=== PATIENT | male | born 1955 | race Caucasian/White ===

== ENCOUNTER 2019-10-09 08:09 | Outpatient (CLI) | payer OTHER, SELFPAY ==
--- NOTE | ~2019-10-09 | US_ITS ---
EXAMINATION: US art doppler w press LE DATE: 10/09/2019 08:54 INDICATION: Bilateral lower limb claudication. TECHNIQUE: Segmental pressures and plethysmographic and Doppler waveforms of the brachial and lower e xtremity arteries were obtained. COMPARISON: None. FINDINGS: Right and left brachial artery pressures of 152 mm Hg and 144 mm Hg, respectively, are concordant (no rmal difference <= 30 mmHg). The right low-thigh pressure index is 1.13. The right ankle-brachial index (RON) is 1.13 (normal >= 0 .9-1.0). The right great toe-brachial index (TBI) is 0.97 (normal >= 0.65). Arterial Doppler waveform s are biphasic from the common femoral artery to dorsalis pedis and are at least triphasic in posteri or tibial artery. The left low-thigh pressure index is 1.24. The left RON is 1.09. The left TBI is 0.69. Arterial Doppl er waveforms are triphasic in common femoral artery and biphasic from superficial femoral artery to t he ankle. IMPRESSION: 1. No significant arterial occlusive disease. Reviewed, dictated and finalized at location A.
== END 2019-10-09 08:10 | disposition home or self-care (01) ==
PROVIDERS: PCP Family Medicine; Visit Provider Internal Medicine Cardiovascular Disease
DX: I73.9 Peripheral vascular disease, unspecified (principal)
CPT/HCPCS: 93923

== ENCOUNTER 2020-01-30 10:35 | Emergency (ER) | payer OTHER, SELFPAY ==
[2020-01-30] VITALS (16 sets, daily range): BP systolic 126–179; BP diastolic 72–93; PULSE 63–78; RESP 11–24; TEMP 36.5; O2SAT 95–99
--- NOTE | ~2020-01-30 | CT_ITS ---
EXAMINATION: CT brain wo con EXAM DATE: 01/30/2020 11:12 INDICATION: Dizziness, nausea for 2 weeks. TECHNIQUE: Spiral CT of the head was performed without contrast. Axial, coronal and sagittal images were reviewed. The dose-length product (DLP) for this examination was 605.33 mGy-cm. The exposure w as tailored according to patient size, and iterative reconstruction (ASIR) was used as additional dos e reduction technique. Comparison is made to prior examination from 06/13/2014. FINDINGS: There is no acute intraparenchymal hemorrhage. No evidence of intraparenchymal brain mass lesion. No evidence of acute infarction. Please note that initial head CT has limited sensitivity f or small or acute infarctions. There is mild to moderate periventricular and subcortical hypodensity, nonspecific but probably related to small vessel ischemic disease. There is ventricular prominence out of proportion to sulci which is suspected most likely central atrophy rather than hydrocephalus. Normal pressure hydrocephalus cannot be excluded (clinical triad ataxia/gait disturbance, dementia, urinary incontinence). There is intracranial carotid arteriosclerosis. There are no extra-axial c ollections. There is no mass effect or midline shift. The orbits are unremarkable. Soft tissue is unremarkable. The visualized sinuses and mastoid air cells are well aerated. Mild progression in t he age-related findings compared to 2015. IMPRESSION: 1. No acute intracranial findings. 2. Chronic age related findings. Reviewed, dictated and finalized at location B.
--- NOTE | 2020-01-30 10:38 | ECG_ITS ---
Measurements Intervals [place] Rate: 71 P: -18 LA: 130 QRS: -31 QRSD: 105 T: 63 QT: 386 QTc: 420 Interpretive Statements SINUS RHYTHM LEFT AXIS DEVIATION DELAYED PRECORDIAL R/S TRANSITION BORDERLINE ECG Electronically Signed On 01-30-2020 13:01:15 CDT by Flo Maldonado D.O.
[2020-01-30 10:52] LABS: Basophils Absolute Auto 0.1 K/mm3 (0.0-0.1); Basophils Percent Auto 0.8 % (0.2-1.2); Eosinophils Absolute Auto 0.3 K/mm3 (0-0.3); Eosinophils Percent Auto 4.4 % (0-4.4); Hemoglobin 15.2 g/dL (14.0-18.0); Immature Granulocyte Absolute 0.01 K/mm3 (0.00-0.031); Immature Granulocyte Percent A 0.2 % (0-0.5); Lymphocytes Absolute Auto 1.75 K/mm3 (0.9-3.2); Lymphocytes Percent Auto 27.2 % (18.3-44.2); Mean Corpuscular HGB Conc 34.5 g/dl (32-36); Mean Corpuscular Hemoglobin 31.2 pg (26-34); Mean Corpuscular Volume 90.3 fl (80-100); Mean Platelet Volume 11.3 fl (7.4-10.4); Monocytes Absolute Auto 0.7 K/mm3 (0.1-0.6); Monocytes Percent Auto 11.2 % (2.6-8.5); Neutrophils Absolute Auto 3.6 K/mm3 (1.3-6.7); Neutrophils Percent Auto 56.2 % (45.5-73.1); Platelet Count Result 204 k/mm3 (150-375); Red Blood Count 4.87 M/mm3 (4.6-6.20); Red Cell Distribution Width 12.6 % (11.5-14.5); White Blood Count 6.4 K/mm3 (4.5-10.0)
--- NOTE | 2020-01-30 11:05 | PC.NURSE ---
pt to radiology at this time.
[2020-01-30 11:38] LABS: Anion Gap 14 mmol/L (8-16); Blood Urea Nitrogen 19 mg/dL (9-20); Calcium 10.1 mg/dL (8.4-10.2); Carbon Dioxide 25 mmol/L (22-30); Chloride 101 mmol/L (98-107); Estimated CRCL calculation 105 ml/min; Estimated Glomerular Filt Rate > 60; Glucose 242 mg/dL (75-110); Sodium 140 mmol/L (137-145)
--- NOTE | 2020-01-30 11:46 | PC.NURSE ---
VIJAY FORDE INFORMED OF PT REFUSAL.
--- NOTE | 2020-01-30 12:09 | ED.DIZZY ---
HPI - Dizziness General Chief Complaint: Dizziness <Ana Marie PA-C - Last Filed: 01/30/20 16:20> Stated Complaint: dizzy x 2 weeks <Ana Marie PA-C - Last Filed: 01/30/20 16:20> Time Seen by Provider: 01/30/20 10:38 <Ana Marie PA-C - Last Filed: 01/30/20 16:20> Source: patient and family () <MARITA Tijerina Last Filed: 01/30/20 16:20> Mode of arrival: ambulatory <MARITA Tijerina Last Filed: 01/30/20 16:20> Limitations: no limitations <MARITA Tijerina Last Filed: 01/30/20 16:20> History of Present Illness HPI Narrative: Patient presents with chief complaint of dizziness sensation when he goes from lying or sitting to standing. Patient states he does not feel any dizziness when he goes from a lying to sitting or sitting to laying only with standing. Patient denies headache, changes in vision or hearing, nausea or vomiting. He denies any recent head injuries or falls. Patient states that he has been able to eat and drink normally. He denies any fever, chills, recent illnesses, shortness of breath, chest pain, rectal bleeding or bloody vomit. Patient states that he just wanted to come in for evaluation to make sure that there was not anything emergent occurring. Patient denies starting any new medications or discontinuing any medications recently. 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 <Ana Marie PA-C - Last Filed: 01/30/20 16:20> Related Data Home Medications: Home Medications Medication Instructions Recorded Confirmed aspirin 81 mg tablet,delayed 81 mg PO DAILY 06/12/19 release lisinopril 40 mg tablet 40 mg PO DAILY 06/12/19 mecobalamin (vitamin B12) 1,000 mcg PO 06/12/19 mcg chewable tablet <Ana Marie PA-C - Last Filed: 01/30/20 16:20> Allergies/Adverse Reactions: Allergies Allergy/AdvReac Type Severity Reaction Status Date / Time nut - unspecified Allergy Unknown Scratchy Verified 11/26/19 15:03 throat <Ana Marie PA-C - Last Filed: 01/30/20 16:20> Review of Systems Review of Systems: Narrative: CONSTITUTIONAL: Denies fever, chills, or sweats. EYES: Denies visual changes, redness, or discharge. ENT: Denies rhinorrhea, congestion, sore throat, or otalgia. CARDIOVASCULAR: Denies chest pain, palpitations, or edema. RESPIRATORY: Denies cough or dyspnea. GASTROINTESTINAL: Denies abdominal pain, nausea, vomiting, or diarrhea. GENITOURINARY: Denies dysuria or hematuria. SKIN: Denies rash or itching. MUSCULOSKELETAL: Denies back pain, myalgia, or joint pain NEUROLOGIC: Reports dizziness with position changes denies headache, numbness,or weakness. PSYCHIATRIC: Denies anxiety or depression. <Ana Marie PA-C - Last Filed: 01/30/20 16:20> PMFSH Family History Family History: Family History Father Patient's father is , Onset Age: 34 Grandparent Carcinoma of colon Sibling Family history of type 1 diabetes mellitus Other Diabetes mellitus <Ana Marie PA-C - Last Filed: 01/30/20 16:20> Social History Social History: Social History Smoking status: Never smoker Alcohol intake: never Gender identity (if verbalized by the patient): Male <Ana Marie PA-C - Last Filed: 01/30/20 16:20> Exam Narrative: Exam Narrative: GENERAL: Well-appearing, well-nourished. Smiling and talking appropriately. HEAD: Normocephalic, atraumatic. EYES: PERRLA and EOMI. ENT: Nares clear, no rhinorrhea or epistaxis. Mucous membranes moist. Oropharynx without tonsillar hypertrophy exudate or other lesions. Bilateral TMs pearly landaverde nonbulging. No hemotympanum. NECK: Supple. No adenopathy or masses. No vertebral tenderness or loss of ROM. CHEST: Clear to auscultation. No respiratory
== END 2020-01-30 12:40 | disposition home or self-care (01) ==
PROVIDERS: Emergency Provider General Practice; PCP Family Medicine
DX: R42 Dizziness and giddiness (principal); I25.2 Old myocardial infarction; R94.31 Abnormal electrocardiogram [ECG] [EKG]
CPT/HCPCS: 36415; 70450; 80048; 85025; 93005; 99284

== ENCOUNTER 2020-02-12 11:24 | Emergency (ER) | payer OTHER, SELFPAY ==
[2020-02-12 11:31] VITALS: BP 134/80; PULSE 81; RESP 20; TEMP 37.1; O2SAT 100
--- NOTE | 2020-02-12 11:41 | ECG_ITS ---
Measurements Intervals [place] Rate: 65 P: 50 NV: 159 QRS: -24 QRSD: 100 T: 45 QT: 390 QTc: 407 Interpretive Statements SINUS RHYTHM DELAYED PRECORDIAL R/S TRANSITION BASELINE WANDER- V4, V6 BORDERLINE ECG Electronically Signed On 02-12-2020 12:04:10 CDT by Flo Maldonado D.O.
[2020-02-12 12:01] LABS: Basophils Absolute Auto 0.1 K/mm3 (0.0-0.1); Basophils Percent Auto 0.7 % (0.2-1.2); Eosinophils Absolute Auto 0.2 K/mm3 (0-0.3); Eosinophils Percent Auto 2.3 % (0-4.4); Hematocrit 44.8 % (42.0-52.0); Hemoglobin 15.5 g/dL (14.0-18.0); Immature Granulocyte Absolute 0.03 K/mm3 (0.00-0.031); Immature Granulocyte Percent A 0.4 % (0-0.5); Lymphocytes Absolute Auto 1.54 K/mm3 (0.9-3.2); Lymphocytes Percent Auto 18.5 % (18.3-44.2); Mean Corpuscular HGB Conc 34.6 g/dl (32-36); Mean Corpuscular Hemoglobin 31.4 pg (26-34); Mean Corpuscular Volume 90.7 fl (80-100); Mean Platelet Volume 10.8 fl (7.4-10.4); Monocytes Absolute Auto 0.9 K/mm3 (0.1-0.6); Monocytes Percent Auto 10.4 % (2.6-8.5); Neutrophils Absolute Auto 5.6 K/mm3 (1.3-6.7); Neutrophils Percent Auto 67.7 % (45.5-73.1); Platelet Count Result 240 k/mm3 (150-375); Red Blood Count 4.94 M/mm3 (4.6-6.20); Red Cell Distribution Width 12.7 % (11.5-14.5); White Blood Count 8.3 K/mm3 (4.5-10.0)
[2020-02-12 12:42] LABS: Alanine Aminotransferase 38 U/L (4-50); Albumin Level 4.3 g/dL (3.5-5.1); Alkaline Phosphatase 73 U/L (38-126); Anion Gap 10 mmol/L (8-16); Aspartate Amino Transferase 30 U/L (17-59); Bilirubin,Total 0.6 mg/dL (0.2-1.3); Blood Urea Nitrogen 16 mg/dL (9-20); Calcium 9.6 mg/dL (8.4-10.2); Carbon Dioxide 27 mmol/L (22-30); Chloride 101 mmol/L (98-107); Estimated CRCL calculation 105 ml/min; Estimated Glomerular Filt Rate > 60; Glucose 185 mg/dL (75-110); Potassium 4.7 mmol/L (3.4-5.0); Sodium 138 mmol/L (137-145)
[2020-02-12 12:53] LABS: Troponin I < 0.012 ng/mL (0.000-0.034)
[2020-02-12 13:15] VITALS: BP 126/75; PULSE 65
[2020-02-12 13:16] VITALS: BP 100/65; PULSE 68
--- NOTE | 2020-02-12 13:20 | ED.DIZZY ---
HPI - Dizziness General Chief Complaint: Dizziness Stated Complaint: DIZZY Time Seen by Provider: 02/12/20 11:40 Source: patient and family Mode of arrival: ambulatory Limitations: no limitations History of Present Illness HPI Narrative: Patient presents with chief complaint of dizziness with changes in position the has been occurring for multiple months. Patient was seen here 01/29 as well as in his primary care office 02/02 and diagnosed with vestibular symptoms. Patient states he was then started on Jardiance which made his dizziness worse. Patient states that he thinks it may be due to blood pressure decreases. Patient denies any blood loss, vomiting, or diarrhea or bleeding in stool. Patient states he has still declined to take meclizine. He does not have headache, change sin vision or hearing, chest pain, or SOB. Related Data Home Medications Medication Instructions Recorded Confirmed aspirin 81 mg tablet,delayed 81 mg PO DAILY 06/12/19 02/03/20 release lisinopril 40 mg tablet 40 mg PO DAILY 06/12/19 02/03/20 mecobalamin (vitamin B12) 1,000 mcg PO 06/12/19 02/03/20 mcg chewable tablet Allergies Allergy/AdvReac Type Severity Reaction Status Date / Time nut - unspecified Allergy Unknown Scratchy Verified 02/12/20 12:03 throat Review of Systems Review of Systems: Narrative: CONSTITUTIONAL: Denies fever, chills, or sweats. EYES: Denies visual changes, redness, or discharge. ENT: Denies rhinorrhea, congestion, sore throat, or otalgia. CARDIOVASCULAR: Denies chest pain, palpitations, or edema. RESPIRATORY: Denies cough or dyspnea. GASTROINTESTINAL: Denies abdominal pain, nausea, vomiting, or diarrhea. GENITOURINARY: Denies dysuria or hematuria. SKIN: Denies rash or itching. MUSCULOSKELETAL: Denies back pain, joint pain, or myalgia. NEUROLOGIC: Reports dizziness with change in the position denies headache, numbness, or weakness. PSYCHIATRIC: Denies anxiety or depression. [facility] Family History Family History Father Patient's father is , Onset Age: 34 Grandparent Carcinoma of colon Sibling Family history of type 1 diabetes mellitus Other Diabetes mellitus Social History Social History Smoking status: Never smoker Alcohol intake: never Gender identity (if verbalized by the patient): Male Exam Narrative: Exam Narrative: GENERAL: Well-appearing, well-nourished, and in no acute distress. HEAD: Normocephalic, atraumatic. EYES: PERRLA and EOMI. ENT: Nares clear, no rhinorrhea or epistaxis. Mucous membranes moist. Oropharynx without tonsillar hypertrophy exudate or other lesions. Bilateral TMs pearly landaverde nonbulging NECK: Supple. No adenopathy or masses. No carotid bruits or JVD CHEST: Clear to auscultation. No respiratory distress. No wheezes rales or rhonchi HEART: Regular rate and rhythm. No murmur heard. Normal peripheral pulses. ABDOMEN: Soft, nontender, nondistended, normal active bowel sounds. EXTREMITIES: Normal range of motion. No edema. SKIN: Warm, dry, no rash. NEURO: No focal deficits. Alert and oriented x3. PSYCH: Normal mood and affect. Course Vital Signs Vital signs: Vital Signs Temperature 98.8 F 02/12/20 11:31 Pulse Rate 81 02/12/20 11:31 Respiratory Rate 20 02/12/20 11:31 Blood Pressure 134/80 02/12/20 11:31 Pulse Oximetry 100 02/12/20 11:31 Temperature 98.8 F 02/12/20 11:31 Pulse Rate 68 02/12/20 13:16 Respiratory Rate 20 02/12/20 11:31 Blood Pressure 100/65 02/12/20 13:16 Pulse Oximetry 100 02/12/20 11:31 MDM - Dizziness MDM Narrative Medical decision making narrative: Patient is neurologically intact. Patient vital signs are stable. Patient does not have any blood loss or loss of fluids with vomiting or diarrhea. Patient feels that his blood pressure medications may need to be changed and h
[2020-02-12 14:20] VITALS: BP 130/81; PULSE 63; RESP 20; O2SAT 100
== END 2020-02-12 14:32 | disposition home or self-care (01) ==
PROVIDERS: Physician Assistant; Emergency Provider Emergency Medicine; PCP Family Medicine
DX: H81.90 Unspecified disorder of vestibular function, unspecified ear (principal)
CPT/HCPCS: 36415; 80053; 84484; 85025; 93005; 99284

== ENCOUNTER 2020-04-21 13:51 | Outpatient (CLI) | payer OTHER, SELFPAY ==
--- NOTE | ~2020-04-21 | US_ITS ---
EXAMINATION: US arterial duplex [facility] DATE: 04/21/2020 14:57 INDICATION: Other specified symptoms and signs involving the circulatory and respiratory systems, art erial disease. Lower limb claudication. TECHNIQUE: Multiple grayscale and Doppler ultrasound images of the arteries of the bilateral lower li mbs were obtained. COMPARISON: None FINDINGS: Triphasic waveform at the right popliteal artery and biphasic waveforms in the remaining arteries of the right lower limb with brisk systolic upstrokes throughout. There are biphasic waveforms with bris k systolic upstrokes throughout the arteries of the left lower limb. Scattered atherosclerotic plaque with visually <50% stenosis is seen throughout multiple arteries in the bilateral lower limbs, more extensive on the left. No focal elevation of peak systolic velocities to suggest a hemodynamically si gnificant stenosis. IMPRESSION: 1. Scattered atherosclerotic plaque throughout multiple arteries in both lower limbs with brisk systo lic upstrokes throughout and no findings grayscale imaging or color Doppler to suggest a hemodynamica lly significant stenosis. Reviewed, dictated and finalized at location A. GER TAX IMPRESSION: 1. Scattered atherosclerotic plaque throughout multiple arteries in both lower limbs with brisk systolic upstrokes throughout and no findings grayscale imagin g or color Doppler to suggest a hemodynamically significant stenosis.
== END 2020-04-21 13:52 | disposition home or self-care (01) ==
LOC: ANHIMG 14:01
PROVIDERS: PCP Family Medicine; Visit Provider Family Medicine
DX: R09.89 Other specified symptoms and signs involving the circulatory and respiratory systems (principal)
CPT/HCPCS: 93925

== ENCOUNTER 2020-04-22 09:58 | Emergency (ER) | payer OTHER, SELFPAY ==
[2020-04-22] VITALS (25 sets, daily range): BP systolic 147–160; BP diastolic 84–101; PULSE 72–83; RESP 14–26; TEMP 36; O2SAT 97–100
--- NOTE | ~2020-04-22 | CT_ITS ---
EXAMINATION: CT abdomen pelvis w con DATE: 04/22/2020 11:36 INDICATION: Nausea, vomiting, abdominal pain, weight loss, loss of appetite TECHNIQUE: Computed tomography (CT) of the abdomen and pelvis was performed with 100 cc Omnipaque 350 intravenous contrast. Automated exposure control and iterative reconstruction technique were employe d. Exam dose: 1086.34 mGy-cm total exam DLP. COMPARISON: 10/11/2013 CT abdomen pelvis FINDINGS: The lung bases are clear of consolidation. Heart size is within normal limits. Trace pericardial effusion. Coronary artery calcification. Very small sliding hiatal hernia. There is dependent sludge and/or stones of the gallbladder. No gallbladder wall thickening or pericho lecystic fluid or stranding. Consider gallbladder ultrasound correlation. No hepatic, splenic, pancreatic, and adrenal or renal space-occupying mass lesion is evident, other t rob a couple of very small left renal cyst and at least one very small right renal cortical cyst. There is a pinpoint nonobstructing anterior mid left renal calculus. No ureteral calculus or hydroureteronephrosis. There is atherosclerotic calcification of the abdominal aorta, superior mesenteric artery, prominent calcification at the origins of the renal arteries and separately originating right hepatic artery fr om the aorta, an anatomic variant. No abdominal aortic aneurysm or dissection is evident. Is calcific ation of the iliac and femoral arteries. No intraperitoneal or retroperitoneal or pelvic mass lesion or adenopathy or ascites. The urinary bladder is unremarkable. Minimal prostate calcification. Normal appendix. No bowel obstruction, bowel wall thickening, pneumatosis or intraperitoneal free air . No suspicious osteolytic or osteoblastic lesions are noted.. IMPRESSION: The dependent gallbladder sludge and/or gallstones; consider gallbladder ultrasound exam ination Very small sliding hiatal hernia Very small bilateral renal cysts Pinpoint nonobstructing anterior mid left renal calculus Reviewed, dictated and finalized at Location A. Reviewed, dictated and finalized at location A. AULIC BARKER OPERATOR IMPRESSION: The dependent gallbladder sludge and/or gallstones; consider gallb ladder ultrasound examination Very small sliding hiatal hernia Very small bilateral renal cysts Pinpoint nonobstructing anterior mid left renal calculus
--- NOTE | ~2020-04-22 | US_ITS ---
EXAMINATION: US abdomen limited EXAM DATE: 04/22/2020 13:10 INDICATION: Gallbladder sludge or gallstones on CT. Nausea and vomiting. TECHNIQUE: Multiple grayscale and Doppler images of the abdomen right upper quadrant were obtained (b y a technologist who performed the scan) and subsequently reviewed. Correlation is made to CT earlier same date. FINDINGS: The pancreatic head and body are normal in appearance. The pancreatic tail is not visualized. The l iver has normal echogenicity and contour. There are no focal liver lesions identified. There is no evidence of intrahepatic biliary duct dilation. Portal venous flow was seen in the hepatopedal, nor mal direction and has normal Doppler waveform. No right-sided hydronephrosis. Common bile duct measures 3 mm, which is normal. The gallbladder wall is normal in thickness, with ex pected amount of distention. No sonographic evidence of pericholecystic fluid. There are small laye ring gallstones Technologist performing exam reports patient did not demonstrate sonographic Butts' s sign. Please note that this sign is less reliable in patients who have received pain medication. IMPRESSION: 1. Cholelithiasis. Reviewed, dictated and finalized at location B. CAL CLAIMS MANAGER IMPRESSION: 1. Cholelithiasis.
--- NOTE | 2020-04-22 10:10 | ECG_ITS ---
Measurements Intervals [place] Rate: 79 P: 186 SD: 136 QRS: 215 QRSD: 102 T: 126 QT: 410 QTc: 470 Interpretive Statements SINUS OR ECTOPIC ATRIAL RHYTHM LIMB LEAD REVERSAL POOR R WAVE PROGRESSION, ANTERIOR LEADS BASELINE ARTIFACT- I, II, AVR, V2-V3, V6 BORDERLINE ECG Electronically Signed On 04-22-2020 14:24:42 HRIS COORDINATOR by Flo Maldonado D.O.
[2020-04-22 10:18] LABS: Basophils Absolute Auto 0.1 K/mm3 (0.0-0.1); Basophils Percent Auto 0.8 % (0.2-1.2); Eosinophils Absolute Auto 0.2 K/mm3 (0-0.3); Eosinophils Percent Auto 2.7 % (0-4.4); Hematocrit 51.6 % (42.0-52.0); Hemoglobin 17.5 g/dL (14.0-18.0); Immature Granulocyte Absolute 0.03 K/mm3 (0.00-0.031); Immature Granulocyte Percent A 0.3 % (0-0.5); Lymphocytes Absolute Auto 1.74 K/mm3 (0.9-3.2); Lymphocytes Percent Auto 19.8 % (18.3-44.2); Mean Corpuscular HGB Conc 33.9 g/dl (32-36); Mean Corpuscular Hemoglobin 30.8 pg (26-34); Mean Corpuscular Volume 90.8 fl (80-100); Mean Platelet Volume 10.8 fl (7.4-10.4); Monocytes Percent Auto 10.9 % (2.6-8.5); Neutrophils Absolute Auto 5.7 K/mm3 (1.3-6.7); Neutrophils Percent Auto 65.5 % (45.5-73.1); Platelet Count Result 269 k/mm3 (150-375); Red Blood Count 5.68 M/mm3 (4.6-6.20); Red Cell Distribution Width 12.5 % (11.5-14.5); White Blood Count 8.8 K/mm3 (4.5-10.0)
--- NOTE | 2020-04-22 10:45 | ED.ABDPAIN ---
HPI - Abdominal Pain General Chief Complaint: Abdominal Pain Stated Complaint: Dizzy, N/V Time Seen by Provider: 04/22/20 10:10 Source: patient Mode of arrival: ambulatory Limitations: no limitations History of Present Illness HPI narrative: Patient with history of vertigo, DM, and HTN presents with chief complaint of vomiting over the past week as well as decreased appetite and weight loss over the past 2 months. Patient states he has decreased his eating to once a day due to vomiting with changes in position. He denies abdominal pain, changes in his stool or blood or mucus in his vomitus or stool. Patient states that he is working with his primary care Dr. Black to treat his vertigo however he has declined medication such as meclizine or Valium for his condition. He states that he was taking [id number] medication for vertigo however it was making him sleepy so he discontinued it. Patient states that he felt that his loss of appetite increased after he was started on Jardiance in January. Patient denies fever, chills, cough, shortness of breath, chest pain. Patient states that he went to the landscape and yardwork laborer today for evaluation of foot ulcer and he was instructed to come to the emergency department for work-up of his nausea and vomiting and weight loss. Patient reports his father had a history of colon cancer. Patient has not recently had a colonoscopy. Related Data Home Medications Medication Instructions Recorded Confirmed aspirin 81 mg tablet,delayed 81 mg PO DAILY 06/12/19 04/07/20 release mecobalamin (vitamin B12) 1,000 mcg PO 06/12/19 04/07/20 mcg chewable tablet lisinopril 04/22/20 Allergies Allergy/AdvReac Type Severity Reaction Status Date / Time nut - unspecified Allergy Unknown Scratchy Verified 04/22/20 10:09 throat Review of Systems Review of Systems: Narrative: CONSTITUTIONAL: Denies fever, chills, or sweats. EYES: Denies visual changes, redness, or discharge. ENT: Denies rhinorrhea, congestion, sore throat, or otalgia. CARDIOVASCULAR: Denies chest pain, palpitations, or edema. RESPIRATORY: Denies cough or dyspnea. GASTROINTESTINAL: Reports nausea, vomiting Denies abdominal pain, or diarrhea. GENITOURINARY: Denies dysuria or hematuria. SKIN: Denies rash or itching. MUSCULOSKELETAL: Denies back pain, myalgia, or joint pain NEUROLOGIC: Reports dizziness Denies headache, numbness, or weakness. PSYCHIATRIC: Denies anxiety or depression. PMFSH Family History Family History Father Patient's father is , Onset Age: 34 Grandparent Carcinoma of colon Sibling Family history of type 1 diabetes mellitus Other Diabetes mellitus Social History Social History Alcohol intake: never Gender identity (if verbalized by the patient): Male Exam Narrative: Exam Narrative: GENERAL: Well-appearing, well-nourished, and in no acute distress. HEAD: Normocephalic, atraumatic. EYES: PERRLA and EOMI. ENT: Nares clear, no rhinorrhea or epistaxis. Mucous membranes moist. Oropharynx without tonsillar hypertrophy exudate or other lesions. Bilateral TMs pearly landaverde nonbulging CHEST: Clear to auscultation. No respiratory distress. No wheezes rales or rhonchi HEART: Regular rate and rhythm. ABDOMEN: Soft, nontender, nondistended, normal active bowel sounds. EXTREMITIES: Normal range of motion. No edema. SKIN: Warm, dry, no rash. NEURO: No focal deficits. Alert and oriented x3. PSYCH: Normal mood and affect. Course Vital Signs Vital signs: Vital Signs Temperature 96.8 F L 04/22/20 10:05 Pulse Rate 82 04/22/20 10:05 Respiratory Rate 20 04/22/20 10:05 Blood Pressure 158/101 H 04/22/20 10:05 Pulse Oximetry 100 04/22/20 10:05 Temperature 96.8 F L 04/22/20 10:05 Pulse Rate 74 04/22/20 11:03 Respiratory Rate 23 H 04/22/20 11:03 Blood Pressure 160/
[2020-04-22 11:12] LABS: Alanine Aminotransferase 48 U/L (4-50); Albumin Level 4.4 g/dL (3.5-5.1); Alkaline Phosphatase 109 U/L (38-126); Anion Gap 9 mmol/L (8-16); Aspartate Amino Transferase 36 U/L (17-59); Bilirubin,Total 0.6 mg/dL (0.2-1.3); Blood Urea Nitrogen 22 mg/dL (9-20); Calcium 10.2 mg/dL (8.4-10.2); Carbon Dioxide 28 mmol/L (22-30); Chloride 101 mmol/L (98-107); Estimated CRCL calculation 80 ml/min; Estimated Glomerular Filt Rate > 60; Glucose 213 mg/dL (75-110); Lipase 45 U/L (23-300); Potassium 4.5 mmol/L (3.4-5.0); Sodium 138 mmol/L (137-145)
[2020-04-22 11:23] LABS: Add Urine Microscopic? YES; Appearance Urine Clear (Clear); Bilirubin Urine Negative (Negative); Blood Urine Negative (Negative); Color Urine Yellow (Yellow); Glucose Urine UA 3+ mg/dL (Negative); Ketones Urine Trace mg/dL (Negative); Leukocyte Esterase Ur Negative LEU/UL (Negative); Mucus Urine Rare /lpf; Nitrate Urine Negative (Negative); Protein Urine Negative (Negative); Urobilinogen Urine Negative mg/dL (<2.0); WBC Urine 0-3 /hpf
[2020-04-22 11:24] LABS: Specific Grav Ur 1.039 (1.001-1.035)
== END 2020-04-22 14:13 | disposition home or self-care (01) ==
PROVIDERS: Emergency Provider Emergency Medicine; PCP Family Medicine
DX: K80.20 Calculus of gallbladder without cholecystitis without obstruction (principal); R42 Dizziness and giddiness; R11.2 Nausea with vomiting, unspecified
CPT/HCPCS: 36415; 74177; 76705; 80053; 81001; 83690; 85025; 93005; 99284; Q9967

== ENCOUNTER 2020-05-04 11:59 | Emergency (ER) | payer OTHER, SELFPAY ==
--- NOTE | ~2020-05-04 | CT_ITS ---
EXAMINATION: CT abdomen pelvis w con INDICATION: Right upper quadrant pain TECHNIQUE: Computed tomographic images of the abdomen and pelvis were obtained after the administrati on of 100 cc of Omnipaque 350 intravenous contrast. The dose-length product (DLP) was 998.30 mGy-cm. Automated exposure control and iterative reconstruction technique were employed. COMPARISON: 04/22/2020 FINDINGS: Minimal dependent atelectasis is present in the lung bases. The heart size is normal. The l iver, spleen, pancreas, and adrenal glands are normal. Stones layer in the nondistended gallbladder. The kidneys are unremarkable. There is calcified atherosclerosis of the aorta and many of the other a rteries. No pathologically enlarged abdominal or pelvic lymph nodes are identified. The appendix is n ormal. A moderate volume of colonic stool is present. There is mild lumbar spondylosis. IMPRESSION: 1. Cholelithiasis without additional findings of cholecystitis. Reviewed, dictated and finalized at location A. RINARY LABORATORY TECHNICIAN
[2020-05-04 12:11] VITALS: BP 132/91; PULSE 80; RESP 14; TEMP 36.6; O2SAT 99
[2020-05-04 12:33] LABS: Basophils Absolute Auto 0.1 K/mm3 (0.0-0.1); Basophils Percent Auto 0.6 % (0.2-1.2); Eosinophils Absolute Auto 0.2 K/mm3 (0-0.3); Eosinophils Percent Auto 2.4 % (0-4.4); Hematocrit 51.3 % (42.0-52.0); Hemoglobin 17.1 g/dL (14.0-18.0); Immature Granulocyte Absolute 0.02 K/mm3 (0.00-0.031); Immature Granulocyte Percent A 0.3 % (0-0.5); Lymphocytes Absolute Auto 1.52 K/mm3 (0.9-3.2); Lymphocytes Percent Auto 19.2 % (18.3-44.2); Mean Corpuscular HGB Conc 33.3 g/dl (32-36); Mean Corpuscular Hemoglobin 30.7 pg (26-34); Mean Corpuscular Volume 92.1 fl (80-100); Mean Platelet Volume 11.3 fl (7.4-10.4); Monocytes Absolute Auto 0.8 K/mm3 (0.1-0.6); Neutrophils Absolute Auto 5.3 K/mm3 (1.3-6.7); Neutrophils Percent Auto 67.5 % (45.5-73.1); Platelet Count Result 226 k/mm3 (150-375); Red Blood Count 5.57 M/mm3 (4.6-6.20); Red Cell Distribution Width 12.5 % (11.5-14.5); White Blood Count 7.9 K/mm3 (4.5-10.0)
[2020-05-04 12:46] LABS: Alanine Aminotransferase 46 U/L (4-50); Albumin Level 4.3 g/dL (3.5-5.1); Alkaline Phosphatase 98 U/L (38-126); Anion Gap 9 mmol/L (8-16); Aspartate Amino Transferase 33 U/L (17-59); Bilirubin,Total 0.7 mg/dL (0.2-1.3); Blood Urea Nitrogen 15 mg/dL (9-20); Calcium 9.9 mg/dL (8.4-10.2); Carbon Dioxide 28 mmol/L (22-30); Chloride 99 mmol/L (98-107); Estimated CRCL calculation 80 ml/min; Estimated Glomerular Filt Rate > 60; Glucose 193 mg/dL (75-110); Lipase 37 U/L (23-300); Potassium 4.5 mmol/L (3.4-5.0); Sodium 136 mmol/L (137-145)
[2020-05-04 12:59] LABS: Add Urine Microscopic? YES; Appearance Urine Clear (Clear); Bacteria Urine Trace /hpf; Bilirubin Urine Negative (Negative); Blood Urine Negative (Negative); Color Urine Yellow (Yellow); Glucose Urine UA 3+ mg/dL (Negative); Ketones Urine 1+ mg/dL (Negative); Leukocyte Esterase Ur Negative LEU/UL (Negative); Mucus Urine Rare /lpf; Nitrate Urine Negative (Negative); Protein Urine Negative (Negative); RBC Urine 0-2 /hpf (0-2); Squamous Epithelial Cell Urine Rare /hpf (Few); Urobilinogen Urine Negative mg/dL (<2.0); WBC Urine 0-3 /hpf
[2020-05-04] MEDS: MORPHINE SULFATE (*CRX) 4 MG/ML INJ IV PUSH (14:27)
[2020-05-04] MEDS: ONDANSETRON INJ 4 MG/2 ML VIAL IV PUSH (14:27)
[2020-05-04] MEDS: FAMOTIDINE 20 MG/2 ML VIAL IV PUSH (14:27)
[2020-05-04] MEDS: SODIUM CHLORIDE 0.9% IV 1,000 ML 999 ML IV CONT (14:28)
[2020-05-04 15:03] VITALS: BP 157/78; PULSE 73; RESP 15; O2SAT 98
--- NOTE | 2020-05-04 16:13 | ED.ABDPAIN ---
HPI - Abdominal Pain General Chief Complaint: Abdominal Pain Stated Complaint: abd pain Time Seen by Provider: 05/04/20 13:45 Source: patient Mode of arrival: ambulatory Limitations: no limitations History of Present Illness HPI narrative: Patient 64-year-old male who presents with abdominal pain from primary care has been having these issues off and on coupled with dizziness for which she has been seen primary care and has been to the emergency department primary care discussed with general surgery patient was referred for rule out gallbladder disease had a CAT scan in the recent past showing cholelithiasis. Patient notes after eating spaghetti O's today he developed belly pain patient denies vomiting diarrhea rectal bleeding melena or URI symptoms patient notes mild aching pain that is poorly localized in the abdomen Related Data Home Medications Medication Instructions Recorded Confirmed aspirin 81 mg tablet,delayed 81 mg PO DAILY 06/12/19 04/07/20 release mecobalamin (vitamin B12) 1,000 mcg PO 06/12/19 04/07/20 mcg chewable tablet lisinopril 04/22/20 Allergies Allergy/AdvReac Type Severity Reaction Status Date / Time nut - unspecified Allergy Unknown Scratchy Verified 05/04/20 11:10 throat Review of Systems Review of Systems: All systems reviewed & are unremarkable except as noted in HPI and below PMFSH Past Medical History Medical History Essential (primary) hypertension Obesity, morbid Type 2 diabetes mellitus with hyperglycemia Family History Family History Father Patient's father is , Onset Age: 34 Grandparent Carcinoma of colon Sibling Family history of type 1 diabetes mellitus Other Diabetes mellitus Social History Social History Alcohol intake: never Gender identity (if verbalized by the patient): Male Exam Narrative: Exam Narrative: GENERAL: Well-appearing, obese, and in no acute distress. HEAD: Normocephalic, atraumatic. EYES: PERRLA and EOMI. ENT: Nares clear, no rhinorrhea or epistaxis. Mucous membranes moist. CHEST: Clear to auscultation. No respiratory distress. No wheezes rales or rhonchi HEART: Regular rate and rhythm. No murmur heard. Normal peripheral pulses. ABDOMEN: Soft, patient's abdomen with minimal tenderness poorly localized no right upper quadrant tenderness more periumbilical right-sided no rebound or guarding, nondistended, EXTREMITIES: Normal range of motion. No edema. SKIN: Warm, dry, no rash. NEURO: No focal deficits. Alert and oriented x3. PSYCH: Normal mood and affect. Course Course Emergency Course: Patient was evaluated in the emergency department no high risk changes in the blood work or imaging discussion was made with general surgery who will follow the patient in clinic patient was hydrated given medications with improvement provided with reasons to return Consultations Consultation #1: Discussed case with general surgery Dr. Covarrubias who will follow the patient in clinic Date: 05/04/20 Time: 16:20 Vital Signs Vital signs: Vital Signs Temperature 97.8 F 05/04/20 12:11 Pulse Rate 80 05/04/20 12:11 Respiratory Rate 14 05/04/20 12:11 Blood Pressure 132/91 H 05/04/20 12:11 Pulse Oximetry 99 05/04/20 12:11 Temperature 97.8 F 05/04/20 12:11 Pulse Rate 73 05/04/20 15:03 Respiratory Rate 15 05/04/20 15:03 Blood Pressure 157/78 H 05/04/20 15:03 Pulse Oximetry 98 05/04/20 15:03 MDM - Abdominal Pain MDM Narrative Medical decision making narrative: Patient will follow with general surgery will also be given GI referral advised to follow with primary care patient is afebrile nontoxic-appearing no distress hydrated in the emergency department feeling better at this time agrees with the plan will be discharged home with
[2020-05-04 16:22] VITALS: BP 153/77; PULSE 66; RESP 16; O2SAT 96
[2020-05-04 16:42] VITALS: BP 136/90; PULSE 84; RESP 16; O2SAT 98
== END 2020-05-04 16:42 | disposition home or self-care (01) ==
PROVIDERS: Emergency Provider Emergency Medicine; PCP Family Medicine
DX: R10.9 Unspecified abdominal pain (principal); I10 Essential (primary) hypertension; E11.9 Type 2 diabetes mellitus without complications; E66.01 Morbid (severe) obesity due to excess calories; Z68.28 Body mass index [BMI] 28.0-28.9, adult; Z79.82 Long term (current) use of aspirin; K80.20 Calculus of gallbladder without cholecystitis without obstruction
CPT/HCPCS: 36415; 74177; 80053; 81001; 83690; 85025; 96361; 96374; 96375; 99284; J2270; J2405; J7030; Q9967

== ENCOUNTER 2020-05-07 08:48 | Outpatient (CLI) | payer OTHER, SELFPAY ==
[2020-05-07 09:18] LABS: Alanine Aminotransferase 49 U/L (4-50); Albumin Level 4.6 g/dL (3.5-5.1); Alkaline Phosphatase 93 U/L (38-126); Amylase 52 U/L (30-110); Anion Gap 10 mmol/L (8-16); Aspartate Amino Transferase 35 U/L (17-59); Blood Urea Nitrogen 13 mg/dL (9-20); Calcium 9.9 mg/dL (8.4-10.2); Carbon Dioxide 29 mmol/L (22-30); Chloride 99 mmol/L (98-107); Estimated Glomerular Filt Rate > 60; Glucose 184 mg/dL (75-110); Potassium 4.6 mmol/L (3.4-5.0); Sodium 138 mmol/L (137-145)
== END 2020-05-07 08:49 | disposition home or self-care (01) ==
LOC: ANHSURGERY 08:51
PROVIDERS: PCP Family Medicine; Visit Provider Surgery
DX: K81.0 Acute cholecystitis (principal); Z01.818 Encounter for other preprocedural examination
CPT/HCPCS: 36415; 80053; 82150; 86850; 86900; 86901

== ENCOUNTER 2020-05-08 00:53 | Outpatient (CLI) | payer OTHER, SELFPAY ==
[2020-05-08 18:46] LABS: SARS-CoV-2 RNA PCR Negative
== END 2020-05-08 00:54 | disposition home or self-care (01) ==
LOC: ANHCOVIDDT 00:53
PROVIDERS: PCP Family Medicine; Visit Provider Surgery
DX: Z01.812 Encounter for preprocedural laboratory examination (principal); Z20.822 Contact with and (suspected) exposure to COVID-19
CPT/HCPCS: C9803; U0003; U0005

== ENCOUNTER 2020-05-11 02:02 | Day surgery (SDC) | payer OTHER, SELFPAY ==
[2020-05-05 16:24] VITALS: BMI 28.5
[2020-05-11] VITALS (8 sets, daily range): BP systolic 104–158; BP diastolic 54–92; PULSE 54–75; RESP 9–20; TEMP 36.2–36.3; O2SAT 94–100
[2020-05-11] MEDS: ACETAMINOPHEN 500 MG TABLET 1000 MG PO (07:57)
[2020-05-11] MEDS: KETOROLAC 15 MG/ML VIAL (*BKC) IV PUSH (08:13)
--- NOTE | 2020-05-11 08:33 | SUR.PREOP ---
pt presents with left big toe necrotic area,not open.states primary aware.
--- NOTE | 2020-05-11 08:37 | WPDANESEPPF ---
Anes - Initial Pre Proc Eval Procedure: Operation Date: 05/11/20 09:00 Proposed Procedures p Laparoscopic Cholecystectomy Possible Open - Jono Shahid DO Date/Time: 05/11/20 08:37 Surgeon: Jono Shahid DO Pre Op Diagnosis: Symptomatic Cholelithiasis Patient Data Age: 64 Gender: M Height: 5 ft 8 in Weight: 89.4 kg Last Vital Signs Temp 97.2 F L 05/11/20 08:15 Pulse 75 05/11/20 08:15 Resp 14 05/11/20 08:15 BP 158/92 H 05/11/20 08:15 Pulse Ox 100 05/11/20 08:15 Allergies Allergy/AdvReac Type Severity Reaction Status Date / Time tree nut Allergy Mild scratchy Verified 05/11/20 07:50 throat Home Medications Medication Instructions Recorded Confirmed Type aspirin 81 mg tablet,delayed 81 mg PO DAILY 06/12/19 05/11/20 History release mecobalamin (vitamin B12) 1,000 1 mcg PO DAILY 06/12/19 05/11/20 History mcg chewable tablet simvastatin 20 mg tablet 20 mg PO DAILY #90 tablet 08/26/19 05/11/20 Rx blood sugar diagnostic #100 each 11/04/19 05/05/20 Rx empagliflozin 25 mg tablet 25 mg PO DAILY #90 tablet 02/03/20 05/11/20 Rx famotidine [Pepcid] 20 mg PO BID #14 tablet 05/04/20 05/11/20 Rx hyoscyamine sulfate [Levsin] 0.125 mg PO QID #7 tablet 05/04/20 05/11/20 Rx ondansetron 4 mg PO Q6H PRN #7 tablet 05/04/20 05/11/20 Rx carvedilol 12.5 mg PO DAILY 05/05/20 05/11/20 History metformin 1,000 mg tablet See Rx Instructions .ROUTE 05/07/20 05/11/20 Rx .COMPLEX #180 tablet Patient hx anesthesia problems: none Family hx anesthesia problems: none PMFSH Past Medical History Medical History Essential (primary) hypertension High cholesterol History of kidney stones Obesity, morbid Type 2 diabetes mellitus with hyperglycemia Surgical History Surgical History H/O eye surgery H/O umbilical hernia repair History of heart artery stent Family History Family History Father Patient's father is , Onset Age: 34 Grandparent Carcinoma of colon Sibling Family history of type 1 diabetes mellitus Other Diabetes mellitus Social History Social History Smoking status: Never smoker Tobacco type: cigarettes Alcohol intake: never Living arrangements: alone Gender identity (if verbalized by the patient): Male Spiritual care concerns: No Anes - Eval Final PreProcedure Day of Procedure 05/11/20 08:37 Patient weight: overweight Heart: regular rate and rhythm Lungs: clear to auscultation Airway: Mallampati scale class II Neurological: alert and oriented Last oral intake: >/= 8 hours ASA classification: III Emergent: no Anesthetic plan: proceed Anesthesia type and monitoring: general ETT and standard monitoring Informed Consent: The patient's anesthetic plan and its attendant risks and benefits were discussed with the patient/family/POA. Questions were solicited and answers provided to the satisfaction of the patient/family/POA.
[2020-05-11 08:41] LABS: Glucose Point of Care 223 (65-105)
[2020-05-11] MEDS: LACTATED RINGERS 1,000 ML 30 ML IV CONT ×2 (08:48→09:53)
--- NOTE | 2020-05-11 08:53 | WPDHPUPDATE1 ---
History and Physical Update Update Date/Time: 05/11/20 08:53 History and Physical has been reviewed, including an updated exam of the patient. There are NO changes in the patient's condition. Risks, benefits, and alternatives have been discussed and questions answered. Patient agrees to proceed with procedure.
--- NOTE | 2020-05-11 08:56 | SUR.PREOP ---
dr delvalle aware of necrotic area to left toe. dr david aware of accucheck 223.
[2020-05-11] MEDS: ceFAZolin 2 GM/D5W 50 ML 2 GM/50 ML BAG IVPB (09:04)
[2020-05-11] MEDS: BUPIVACAINE HCL 0.5% PF 30 ML VIAL INFILTRATE (09:11)
[2020-05-11 10:05] LABS: Glucose Point of Care 202 (65-105)
--- NOTE | 2020-05-11 10:12 | PM.PROC ---
Procedure Note - Detailed Date of procedure: 05/11/20 Pre-op diagnosis: Symptomatic Cholelithiasis Post-op diagnosis: same Procedure performed: Laparoscopic Cholecystectomy Description of procedure: Procedure as well as risks, benefits, and alternatives were discussed with patient. Written consent was obtained and placed in chart prior to procedure. The patient was brought back to surgical suite. Patient was placed in supine position on operating table. Time-out was done to confirm patient and procedure. Patient was then intubated by the anesthesia department. Abdomen was prepped and draped in sterile fashion using chlorhexidine prep. 0.5% bupivacaine with epinephrine was infiltrated at each site of incision. A 5 millimeter incision was made near the umbilicus, and a 5 millimeter Optiview trocar was advanced through the abdominal layers under direct visualization. Once inside the abdominal cavity, carbon dioxide was insufflated to create a pneumoperitoneum. The camera was inserted and the abdomen was inspected. No immediate abnormalities were identified. The patient was placed in reverse Trendelenburg position and rotated slightly to the left. An 11 millimeter incision was made in the subxiphoid region, and an 11 millimeter trocar was inserted under direct visualization. Two 5 millimeter incisions were made in the right upper quadrant, and two 5 millimeter trocars were inserted under direct visualization. The gallbladder was identified and grasped at the fundus and retracted superiorly. It was then grasped at the infundibulum retracted laterally. Careful dissection around the neck of the gallbladder was performed using blunt dissection with a [place] grasper and hook electrocautery. The cystic duct was identified, and a window was created behind it. The cystic artery was also identified and a window was created behind it. The critical view of safety was identified, visualizing the cystic duct running directly into the neck of the gallbladder, and the cystic artery running directly into the wall of the gallbladder. A 5 millimeter clip food products tester was then used to place 2 clips proximally and 1 clip distally on both the cystic duct and cystic artery. They were then both transected using endoscopic scissors. Once safely away from the ascencion hepatitis, the gallbladder was dissected free from the liver bed using hook electrocautery. Hemostasis was achieved along the way. The gallbladder was removed completely and then removed through the subxiphoid port. The liver bed was then inspected. Hemostasis appeared adequate, and our clips appeared secure. The area was gently irrigated with sterile saline. No other abnormalities were seen. The patient was flattened out in bed, and 1 final inspection was made around the abdominal cavity. The subxiphoid port was removed, and a Emmanuel Lion cone was used to approximate the fascia with an 0-Vicryl simple interrupted suture. The remaining ports were then removed under direct visualization, the camera was removed, and the pneumoperitoneum was released. The skin of the incisions was approximated using 4-0 Monocryl subcuticular sutures. Exofin glue was applied on top. The patient was then awakened from anesthesia, extubated, and transferred to recovery. Anesthesia: GETA and local (0.5% bupivicaine with epi) Surgeon: Jono Shahid DO Estimated blood loss (mL): 5 Drains: No Packing: No Pathology: yes Complications: No immediate complications Condition: stable (Patient tolerated procedure well, and is currently resting comfortably in recovery.) Disposition: same day Findings: This is a 64-year-old man who presents with right upper quadrant pain and nausea and vomiting. He had presented to the emergency department twice in the past month and CT both times showed evidence of cholelithiasis without cholecystitis. His labs were normal both times as well. He continues to have nausea and vomiting which has been going
[2020-05-11] MEDS: fentaNYL CITRATE INJ (*CRX) 100 MCG/2 ML VIAL 25 MCG IV PUSH ×4 (10:21→10:54)
[2020-05-11] MEDS: oxyCODONE HCL (*CRX) 5 MG TAB IR PO (11:12)
== END 2020-05-11 12:00 | disposition home or self-care (01) ==
PROVIDERS: PCP Family Medicine; Visit Provider Surgery
PROC: 0FT44ZZ Resection of Gallbladder, Percutaneous Endoscopic Approach (ICD-10-PCS; CPT 47562; principal; 2020-05-11 09:00)
DX: K80.20 Calculus of gallbladder without cholecystitis without obstruction (principal); K80.10 Calculus of gallbladder with chronic cholecystitis without obstruction; Z79.82 Long term (current) use of aspirin; I10 Essential (primary) hypertension; E78.00 Pure hypercholesterolemia, unspecified; E66.9 Obesity, unspecified; Z68.30 Body mass index [BMI] 30.0-30.9, adult; E11.65 Type 2 diabetes mellitus with hyperglycemia
CPT/HCPCS: 47562; 88304; A9270; J0690; J1100; J1885; J2370; J2405; J2704; J2710; J3010; J7030; J7120

== ENCOUNTER 2020-05-14 06:19 | Emergency (ER) | payer OTHER, SELFPAY ==
[2020-05-14] VITALS (23 sets, daily range): BP systolic 132–170; BP diastolic 83–97; PULSE 73–81; RESP 7–22; TEMP 36.6; O2SAT 86–100
--- NOTE | ~2020-05-14 | CT_ITS ---
EXAMINATION: CT abdomen pelvis w con EXAM DATE: 05/14/2020 07:43 INDICATION: Abdominal pain, recent cholecystectomy 3 days ago. Nausea. TECHNIQUE: Spiral CT of the abdomen and pelvis was performed following intravenous injection of 100 m L Omnipaque 350. Axial, coronal and sagittal images were reviewed. The dose-length product (DLP) fo r this examination was 847.86 mGy-cm. The exposure was tailored according to patient size (auto mA e xposure control), and iterative reconstruction (ASIR) was used as additional dose reduction technique . Comparison is made to prior examination from 05/04/2020. FINDINGS: There are surgical changes from recent cholecystectomy with small scattered foci of free in traperitoneal gas. No fluid collection in the gallbladder fossa or pelvis. The liver, spleen, adrenal glands and pancreas are unremarkable. Portal and splenic veins are patent. Kidneys enhance symmetr ically. There is no hydronephrosis. The prostate is unremarkable. The bladder is unremarkable. T here is no retroperitoneal or pelvic lymphadenopathy. There is moderate scattered arteriosclerotic disease. The appendix is normal. There is small sliding gastroesophageal hiatal hernia. Distal esophageal eso phagitis. There is expected amount of colonic stool. Small pericardial effusion. The lung bases ar e unremarkable. There are no osteoblastic or osteolytic lesions identified. IMPRESSION: 1. Recent cholecystectomy, with small scattered foci of peritoneal gas probably postoperative. 2. Small hiatal hernia and distal esophageal edema probably esophagitis. Reviewed, dictated and finalized at location A. CLE SAFETY INSPECTOR IMPRESSION: 1. Recent cholecystectomy, with small scattered foci of peritoneal gas probabl y postoperative. 2. Small hiatal hernia and distal esophageal edema probably esophagitis.
--- NOTE | 2020-05-14 06:25 | ECG_ITS ---
Measurements Intervals [place] Rate: 75 P: -4 NV: 133 QRS: -54 QRSD: 98 T: 3 QT: 388 QTc: 436 Interpretive Statements SINUS RHYTHM LEFT ANTERIOR FASCICULAR BLOCK BORDERLINE T WAVE ABNORMALITY- ANT/INF LEADS ABNORMAL ECG Electronically Signed On 05-14-2020 7:11:16 FNPS by Flo Maldonado D.O.
[2020-05-14 06:59] LABS: Basophils Percent Auto 0.4 % (0.2-1.2); Eosinophils Absolute Auto 0.2 K/mm3 (0-0.3); Eosinophils Percent Auto 2.6 % (0-4.4); Hematocrit 49.4 % (42.0-52.0); Hemoglobin 16.9 g/dL (14.0-18.0); Immature Granulocyte Absolute 0.02 K/mm3 (0.00-0.031); Immature Granulocyte Percent A 0.2 % (0-0.5); Lymphocytes Absolute Auto 1.17 K/mm3 (0.9-3.2); Lymphocytes Percent Auto 13.1 % (18.3-44.2); Mean Corpuscular HGB Conc 34.2 g/dl (32-36); Mean Corpuscular Volume 90.5 fl (80-100); Mean Platelet Volume 10.8 fl (7.4-10.4); Monocytes Absolute Auto 0.9 K/mm3 (0.1-0.6); Monocytes Percent Auto 9.6 % (2.6-8.5); Neutrophils Absolute Auto 6.6 K/mm3 (1.3-6.7); Neutrophils Percent Auto 74.1 % (45.5-73.1); Platelet Count Result 211 k/mm3 (150-375); Red Blood Count 5.46 M/mm3 (4.6-6.20); Red Cell Distribution Width 12.7 % (11.5-14.5); White Blood Count 8.9 K/mm3 (4.5-10.0)
[2020-05-14 07:11] LABS: Alanine Aminotransferase 40 U/L (4-50); Alkaline Phosphatase 89 U/L (38-126); Anion Gap 11 mmol/L (8-16); Aspartate Amino Transferase 28 U/L (17-59); Blood Urea Nitrogen 11 mg/dL (9-20); Calcium 9.7 mg/dL (8.4-10.2); Carbon Dioxide 27 mmol/L (22-30); Chloride 101 mmol/L (98-107); Estimated CRCL calculation 112 ml/min; Estimated Glomerular Filt Rate > 60; Glucose 174 mg/dL (75-110); Lipase 18 U/L (23-300); Sodium 139 mmol/L (137-145)
[2020-05-14 07:13] LABS: Potassium 4.2 mmol/L (3.4-5.0)
[2020-05-14 07:22] LABS: Troponin I < 0.012 ng/mL (0.000-0.034)
[2020-05-14] MEDS: SODIUM CHLORIDE 0.9% IV 1,000 ML 999 ML IV CONT (08:06)
[2020-05-14] MEDS: MORPHINE SULFATE (*CRX) 4 MG/ML INJ IV PUSH (08:07)
[2020-05-14] MEDS: ONDANSETRON INJ 4 MG/2 ML VIAL IV PUSH (08:07)
--- NOTE | 2020-05-14 08:55 | PC.NURSE ---
gi cocktail given to pt. took one sip and said was unable to drink it because it was terrible. pt refused. edp aware.
--- NOTE | 2020-05-14 09:54 | PC.NURSE ---
pt was able to keep ice chips and ice water down. continues to c/o epigastric burning. again made aware gi cocktail was designed to help those symptoms.
--- NOTE | 2020-05-14 10:11 | ED.GENADULT ---
HPI - General Adult General Chief complaint: Abdominal Pain Stated complaint: n/v Time Seen by Provider: 05/14/20 07:03 History of Present Illness HPI narrative: Patient is a 64-year-old gentleman who presents the emergency department with chief complaint of nausea and vomiting and epigastric discomfort. The patient just had a cholecystectomy several days ago at our facility the patient states that subsequently he is still continued to have nausea and vomiting. Patient denies fever denies chills reports that he has discomfort in the epigastric region. The patient reports the nausea medication has been taking at home does not agree with him and he has not been taking it. Related Data Home Medications Medication Instructions Recorded Confirmed aspirin 81 mg tablet,delayed 81 mg PO DAILY 06/12/19 05/11/20 release mecobalamin (vitamin B12) 1,000 1 mcg PO DAILY 06/12/19 05/11/20 mcg chewable tablet carvedilol 12.5 mg PO DAILY 05/05/20 05/11/20 Allergies Allergy/AdvReac Type Severity Reaction Status Date / Time tree nut Allergy Mild scratchy Verified 05/14/20 06:24 throat Review of Systems Review of Systems: Narrative: A 10 system review of systems was completed on the patient and is negative except for what is stated in the HPI. Nursing and ancillary documentation was reviewed. PMFSH Past Medical History Medical History Essential (primary) hypertension High cholesterol History of kidney stones Obesity, morbid Type 2 diabetes mellitus with hyperglycemia Surgical History Surgical History H/O eye surgery H/O umbilical hernia repair History of heart artery stent Family History Family History Father Patient's father is , Onset Age: 34 Grandparent Carcinoma of colon Sibling Family history of type 1 diabetes mellitus Other Diabetes mellitus Social History Social History Smoking status: Never smoker Tobacco type: cigarettes Alcohol intake: never Gender identity (if verbalized by the patient): Male Spiritual care concerns: No Exam Narrative: Exam Narrative: GENERAL: Well-appearing, well-nourished, and in no acute distress. HEAD: Normocephalic, atraumatic. EYES: PERRLA and EOMI. ENT: Nares clear, no rhinorrhea or epistaxis. Mucous membranes moist. NECK: Supple. CHEST: Clear to auscultation. No respiratory distress. HEART: Regular rate and rhythm. No murmur heard. Normal peripheral pulses. ABDOMEN: Soft, mild tenderness to palpation, incisions appear to be healing well without erythema, nondistended, normal active bowel sounds. EXTREMITIES: Normal range of motion. No edema. SKIN: Warm, dry, no rash. NEURO: No focal deficits. Alert and oriented x3. PSYCH: Normal mood and affect. Course Course Emergency Course: CT scan showed no acute abnormalities. The patient was able to tolerate p.o. intake in the emergency department and the patient will be discharged home. Vital Signs Vital signs: Vital Signs Temperature 36.6 C 05/14/20 06:18 Pulse Rate 80 05/14/20 06:18 Respiratory Rate 22 H 05/14/20 06:18 Blood Pressure 132/97 H 05/14/20 06:18 Pulse Oximetry 100 05/14/20 06:18 Temperature 36.6 C 05/14/20 06:18 Pulse Rate 80 05/14/20 06:18 Respiratory Rate 22 H 05/14/20 06:18 Blood Pressure 132/97 H 05/14/20 06:18 Pulse Oximetry 100 05/14/20 06:18 Medical Decision Making Vital Signs Vital Signs: Vital Signs Temperature 36.6 C 05/14/20 06:18 Pulse Rate 80 05/14/20 06:18 Respiratory Rate 22 H 05/14/20 06:18 Blood Pressure 132/97 H 05/14/20 06:18 Pulse Oximetry 100 05/14/20 06:18 Temperature 36.6 C 05/14/20 06:18 Pulse Rate 80 05/14/20 06:18 Respiratory Rat
== END 2020-05-14 10:50 | disposition home or self-care (01) ==
PROVIDERS: Emergency Medicine; Emergency Provider Emergency Medicine; Family Provider Family Medicine; PCP Family Medicine
DX: G89.18 Other acute postprocedural pain (principal); K29.00 Acute gastritis without bleeding; R11.2 Nausea with vomiting, unspecified; Z79.82 Long term (current) use of aspirin; I10 Essential (primary) hypertension; E78.00 Pure hypercholesterolemia, unspecified; Z87.442 Personal history of urinary calculi; E11.9 Type 2 diabetes mellitus without complications; Z95.5 Presence of coronary angioplasty implant and graft; E66.01 Morbid (severe) obesity due to excess calories; Z68.31 Body mass index [BMI] 31.0-31.9, adult
CPT/HCPCS: 36415; 74177; 80053; 83690; 84484; 85025; 93005; 96361; 96374; 96375; 99284; A9270; J2270; J2405; J7030; Q9967

== ENCOUNTER 2022-11-07 19:38 | Inpatient (IN) | payer MEDICARE, OTHER, SELFPAY ==
[2022-11-07] VITALS (16 sets, daily range): BP systolic 122–139; BP diastolic 62–86; PULSE 57–136; RESP 13–23; O2SAT 96–100
--- NOTE | ~2022-11-07 | XR_ITS ---
EXAMINATION: XR chest 1V portable Exam Date/Time: 11/07/2022 20:10 CDT HISTORY: Chest pain Comparison: 08/06/2016. RESULT: Lines, tubes, and devices: None. Lungs and pleura: Clear. Cardiomediastinal silhouette: Stable. Other: No acute osseous or upper abdominal finding. IMPRESSION: No acute cardiopulmonary process. Reviewed, dictated and finalized at location K.
--- NOTE | 2022-11-07 19:51 | ECG_ITS ---
Measurements Intervals [place] Rate: 153 P: NV: 0 QRS: -38 QRSD: 104 T: 73 QT: 297 QTc: 474 Interpretive Statements ATRIAL FIBRILLATION WITH RAPID VENTRICULAR RESPONSE VENTRICULAR TRIPLET AND VENTRICULAR PREMATURE COMPLEX LEFT AXIS DEVIATION ST-T WAVE ABNORMALITY IN HIGH LATERAL LEADS- CONSIDER ISCHEMIA ABNORMAL ECG COMPARED TO ECG 05/14/2020 06:47:28 ATRIAL FIBRILLATION NOW PRESENT ST-T WAVE ABNORMALITY NOW PRESENT Electronically Signed On 11-07-2022 20:15:29 CDT by Flo Maldonado D.O.
[2022-11-07] MEDS: dilTIAZem HCl INJ 25 MG/5 ML VIAL 20 MG IV PUSH (20:00)
[2022-11-07] MEDS: dilTIAZem 100 MG/100 ML 100 MG/100 ML BAG IV CONT (20:06)
[2022-11-07 20:14] LABS: Basophils Absolute Auto 0.1 K/mm3 (0.0-0.1); Eosinophils Absolute Auto 0.3 K/mm3 (0-0.3); Eosinophils Percent Auto 3.8 % (0-4.4); Hematocrit 42.7 % (42.0-52.0); Hemoglobin 14.3 g/dL (14.0-18.0); Immature Granulocyte Absolute 0.02 K/mm3 (0.00-0.031); Immature Granulocyte Percent A 0.3 % (0-0.5); Lymphocytes Absolute Auto 2.02 K/mm3 (0.9-3.2); Lymphocytes Percent Auto 29.8 % (18.3-44.2); Mean Corpuscular HGB Conc 33.5 g/dl (32-36); Mean Corpuscular Hemoglobin 31.1 pg (26-34); Mean Corpuscular Volume 92.8 fl (80-100); Mean Platelet Volume 11.6 fl (7.4-10.4); Monocytes Absolute Auto 0.7 K/mm3 (0.1-0.6); Monocytes Percent Auto 10.6 % (2.6-8.5); Neutrophils Absolute Auto 3.7 K/mm3 (1.3-6.7); Neutrophils Percent Auto 54.5 % (45.5-73.1); Platelet Count Result 197 k/mm3 (150-375); Red Cell Distribution Width 12.5 % (11.5-14.5); White Blood Count 6.8 K/mm3 (4.5-10.0)
--- NOTE | 2022-11-07 20:16 | ED.CHESTPAIN ---
HPI - Chest Pain General Chief Complaint: Chest Pain Stated Complaint: chest pressure Time Seen by Provider: 11/07/22 19:42 History of Present Illness HPI narrative: This is a 66-year-old male, past history of [place] x2, s/p cholecystectomy, diabetes, who presents the emergency department complaining of chest pain and palpitations beginning approximately 2 hours ago. The patient states he was walking down stairs, when he noted some palpitations associated with dull and pressure-like chest pain, rated 6/10, radiating to the left arm. Physical exertion worsens the pain, he complained of some shortness of breath but denies nausea, vomiting or lightheadedness. Related Data Home Medications Medication Instructions Recorded Confirmed aspirin 81 mg tablet,delayed 81 mg PO DAILY 06/12/19 05/20/22 release mecobalamin (vitamin B12) 1,000 1 mcg PO DAILY 06/12/19 05/20/22 mcg chewable tablet Allergies Allergy/AdvReac Type Severity Reaction Status Date / Time tree nut Allergy Mild scratchy Verified 05/17/22 09:38 throat Review of Systems Review of Systems: CONSTITUTIONAL: Denies fever, chills, or sweats. CARDIOVASCULAR: Chest pain, palpitations denies edema. RESPIRATORY: Denies cough or dyspnea. GASTROINTESTINAL: Denies abdominal pain, nausea, vomiting, or diarrhea. GENITOURINARY: Denies dysuria or hematuria. SKIN: Denies rash or itching. MUSCULOSKELETAL: Denies back pain, joint pain, or myalgia. NEUROLOGIC: Denies headache, numbness, dizziness, or weakness. PSYCHIATRIC: Denies anxiety or depression. [facility] Past Medical History Medical History Acute cholecystitis Asymptomatic cholelithiasis Chronic cholecystitis with calculus Costochondritis, acute Encounter for surgical aftercare following surgery on the digestive system Essential (primary) hypertension High cholesterol History of kidney stones Loss of taste Obesity, morbid Shy-Drager syndrome Symptomatic cholelithiasis Type 2 diabetes mellitus with hyperglycemia Unresolved grief Ventral hernia without obstruction or gangrene Surgical History Surgical History H/O eye surgery H/O umbilical hernia repair History of heart artery stent Hx laparoscopic cholecystectomy 05/11/20 Family History Family History Father Patient's father is , Onset Age: 34 Grandparent Carcinoma of colon Sibling Family history of type 1 diabetes mellitus Other Diabetes mellitus Social History Social History Smoking status: Unknown if ever smoked Tobacco type: cigarettes Alcohol intake: never Lack of Transportation: No Lack of Food: Never True Current Housing: I Have Housing Concerned About Future Housing: No Difficulty Paying Gas/Electric Bills: No Difficulty Paying for Meds: No Currently Unemployed: No Education: Trade/Vocational Certificate Difficulty w/ Childcare or Family Care: No Living arrangements: alone Gender identity (if verbalized by the patient): Male Spiritual care concerns: No Exam Narrative: GENERAL: Well-developed, well-nourished, and in no acute distress. HEAD: Normocephalic, atraumatic. EYES: PERRLA and EOMI. ENT: Nares clear, no rhinorrhea or epistaxis. Mucous membranes moist. Oropharynx without tonsillar hypertrophy exudate or other lesions. CHEST: Clear to auscultation. No respiratory distress. No wheezes rales or rhonchi HEART: Irregularly irregular. No murmur heard. Normal peripheral pulses. ABDOMEN: Soft, nontender, nondistended, normal active bowel sounds. EXTREMITIES: Normal range of motion. No edema. SKIN: Warm, dry, no rash. NEURO: No focal deficits. Alert and oriented x3. PSYCH: Normal mood and affect. Course Course Emergency Course: 19:51 - EKG dem
--- NOTE | 2022-11-07 20:23 | ECG_ITS ---
Measurements Intervals [place] Rate: 119 P: [place]: 0 QRS: -39 QRSD: 105 T: 72 QT: 318 QTc: 448 Interpretive Statements ATRIAL FIBRILLATION WITH RAPID VENTRICULAR RESPONSE LEFT AXIS DEVIATION DELAYED PRECORDIAL R/S TRANSITION ST-T WAVE ABNORMALITY IN HIGH LATERAL LEADS- CONSIDER ISCHEMIA BASELINE ARTIFACT- I, II, III, AVR, AVL, AVF ABNORMAL ECG COMPARED TO ECG 11/07/2022 19:42:35 HEART RATE HAS DECREASED Electronically Signed On 11-08-2022 6:48:54 CDT by Flo Maldoando D.O.
[2022-11-07 20:26] LABS: INR 1.1; Prothrombin Time 14.3 Seconds (11.1-14.7)
[2022-11-07 20:29] LABS: Alanine Aminotransferase 35 U/L (6-50); Albumin Level 4.3 g/dL (3.5-5.1); Alkaline Phosphatase 94 U/L (38-126); Anion Gap 9 mmol/L (8-16); Aspartate Amino Transferase 32 U/L (17-59); Bilirubin,Total 0.6 mg/dL (0.2-1.3); Blood Urea Nitrogen 15 mg/dL (9-20); Calcium 9.2 mg/dL (8.4-10.2); Carbon Dioxide 26 mmol/L (22-30); Chloride 104 mmol/L (98-107); Estimated CRCL calculation 101 ml/min; Estimated Glomerular Filt Rate > 60; Glucose 202 mg/dL (65-110); Potassium 4.5 mmol/L (3.4-5.0); Sodium 139 mmol/L (137-145)
[2022-11-07 20:36] LABS: Troponin I < 0.012 ng/mL (0.000-0.034)
--- NOTE | 2022-11-07 21:09 | ECG_ITS ---
Measurements Intervals [place] Rate: 60 P: 266 [place]: 107 QRS: -20 QRSD: 115 T: 62 QT: 415 QTc: 415 Interpretive Statements ECTOPIC ATRIAL OR JUNCTIONAL RHYTHM BASELINE ARTIFACT- I, III, AVL, AVF ABNORMAL ECG COMPARED TO ECG 11/07/2022 20:41:27 ECTOPIC ATRIAL OR JUNCTIONAL RHYTHM NOW PRESENT Electronically Signed On 11-08-2022 6:50:06 CDT by Flo Maldonado D.O.
--- NOTE | 2022-11-07 22:22 | PC.NURSE ---
Pt converted to sinus rhythm. Verbal order read back from Dr. Tapia to stop Diltiazem drip.
[2022-11-07] MEDS: APIXABAN 5 MG TABLET PO (23:07)
--- NOTE | 2022-11-07 23:22 | PM.IMHP ---
H&P: HPI History of Present Illness Date/Time: 11/07/22 23:22 Chief Complaint: Chest pain and palpitation. Narrative: This is a 66-year-old gentleman with a past medical history including but not limited to CAD status post [place] x2, diabetes mellitus, hypertension, dyslipidemia, cholecystitis who present to the emergency department with complaint of chest pain and palpitation. The symptoms started about 2 hours prior to presentation. The patient was walking to get water from his AC. At that time, he noted some palpitations associated with dull and pressure-like chest pain, rated 6/10, radiating to the left arm.? Physical exertion worsens the pain, he complained of some shortness of breath but denies nausea, vomiting or lightheadedness. On admission to the emergency department, the patient shows the following vital signs a heart rate of 136, respiration 16, blood pressure 134/76, pulse ox 99%. An EKG demonstrated atrial fibrillation with rapid ventricular response, with ST depression. The patient was medicated with IV diltiazem followed by diltiazem drip. His heart rate improved to the 60s. Basic labs were drawn. He CBC shows a WBC of 6.8, an hemoglobin of 14.3, hematocrit of 42.7, platelet count of 497. He serum chemistry shows a sodium of 136, potassium 4.3, chloride 106, bicarbonate 22, BUN 15, creatinine 0.6 and a blood glucose of 173. A 2nd EKG shows atrial fibrillation with a rate of 119, left axis deviation, T-wave inversion in aVL, ST depression in V2 V3 V4 and V5. A 3rd EKG shows junctional rhythm rate 60, left axis deviation, no ST segment elevation or T-wave inversion concerning for ischemia. After the patient went into junctional rhythm, Cardizem drip was discontinued. His initial troponin was normal at 0.0 12. Repeat troponin were elevated at 0.788 and 1.92 respectively. Patient was started on heparin drip. Speeder Operator on-call, Dr. Arriaga was notified and the patient was put NPO. Review of Systems Review of Systems: CONSTITUTIONAL: Denies fever, chills, or sweats. CARDIOVASCULAR: Chest pain, palpitations denies edema. RESPIRATORY: Denies cough or dyspnea. GASTROINTESTINAL: Denies abdominal pain, nausea, vomiting, or diarrhea. GENITOURINARY: Denies dysuria or hematuria. SKIN: Denies rash or itching. MUSCULOSKELETAL: Denies back pain, joint pain, or myalgia. NEUROLOGIC: Denies headache, numbness, dizziness, or weakness. PSYCHIATRIC: Denies anxiety or depression. [facility] Past Medical History Medical History (Updated 11/08/22 @ 06:54 by Viviana Gaming MD) Acute cholecystitis Asymptomatic cholelithiasis Chronic cholecystitis with calculus Costochondritis, acute Encounter for surgical aftercare following surgery on the digestive system Essential (primary) hypertension High cholesterol History of kidney stones Loss of taste Mixed hyperlipidemia Obesity, morbid Shy-Drager syndrome Symptomatic cholelithiasis Type 2 diabetes mellitus with hyperglycemia Unresolved grief Ventral hernia without obstruction or gangrene Surgical History Surgical History H/O eye surgery H/O umbilical hernia repair History of heart artery stent Hx laparoscopic cholecystectomy 05/11/20 Family History Family History Father Patient's father is , Onset Age: 34 Grandparent Carcinoma of colon Sibling Family history of type 1 diabetes mellitus Other Diabetes mellitus Social History Social History Smoking status: Unknown if ever smoked Tobacco type: cigarettes Alcohol intake: never Lack of Transportation: No Lack of Food: Never True Current Housing: I Have Housing Concerned About Future Housing: No Difficulty Paying Gas/Electric Bills: No Difficulty Paying for Meds: No Currently Unemployed: No Education: Trade/Vocational Certificate Difficul
[2022-11-08] VITALS (20 sets, daily range): BP systolic 141–152; BP diastolic 72–80; PULSE 63–69; RESP 14–21; O2SAT 98–100
[2022-11-08 00:17] LABS: Troponin I 0.788 ng/mL (0.000-0.034)
[2022-11-08] MEDS: HEPARIN SOD/D5W 100 UNITS/ML 25,000 UNITS/250 ML BAG 9 UNITS IV CONT (00:52)
[2022-11-08 02:48] LABS: Anion Gap 8 mmol/L (8-16); Blood Urea Nitrogen 15 mg/dL (9-20); Calcium 9.2 mg/dL (8.4-10.2); Carbon Dioxide 22 mmol/L (22-30); Chloride 106 mmol/L (98-107); Estimated CRCL calculation 116 ml/min; Estimated Glomerular Filt Rate > 60; Glucose 173 mg/dL (65-110); Potassium 4.3 mmol/L (3.4-5.0); Sodium 136 mmol/L (137-145)
[2022-11-08 03:57] LABS: Basophils Percent Auto 0.6 % (0.2-1.2); Eosinophils Absolute Auto 0.1 K/mm3 (0-0.3); Eosinophils Percent Auto 1.7 % (0-4.4); Hematocrit 42.5 % (42.0-52.0); Hemoglobin 14.2 g/dL (14.0-18.0); Immature Granulocyte Absolute 0.02 K/mm3 (0.00-0.031); Immature Granulocyte Percent A 0.3 % (0-0.5); Lymphocytes Absolute Auto 1.67 K/mm3 (0.9-3.2); Lymphocytes Percent Auto 23.4 % (18.3-44.2); Mean Corpuscular HGB Conc 33.4 g/dl (32-36); Mean Corpuscular Hemoglobin 31.2 pg (26-34); Mean Corpuscular Volume 93.4 fl (80-100); Monocytes Absolute Auto 0.6 K/mm3 (0.1-0.6); Neutrophils Absolute Auto 4.7 K/mm3 (1.3-6.7); Platelet Count Result 184 k/mm3 (150-375); Red Blood Count 4.55 M/mm3 (4.6-6.20); Red Cell Distribution Width 12.9 % (11.5-14.5); White Blood Count 7.1 K/mm3 (4.5-10.0)
[2022-11-08 04:08] LABS: INR 1.3; Prothrombin Time 16.3 Seconds (11.1-14.7)
[2022-11-08 04:09] LABS: Partial Thromboplastin Time 45.1 SECONDS (22.3-36.8)
--- NOTE | 2022-11-08 07:27 | PC.NURSE ---
Pt refused aspirin dose at 0620. 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
[2022-11-08 07:41] LABS: Anion Gap 8 mmol/L (8-16); Blood Urea Nitrogen 15 mg/dL (9-20); Calcium 9.4 mg/dL (8.4-10.2); Carbon Dioxide 25 mmol/L (22-30); Chloride 105 mmol/L (98-107); Estimated CRCL calculation 116 ml/min; Estimated Glomerular Filt Rate > 60; Glucose 157 mg/dL (65-110); Magnesium 1.9 mg/dL (1.6-2.3); Potassium 4.7 mmol/L (3.4-5.0); Sodium 138 mmol/L (137-145)
[2022-11-08 08:01] LABS: Hemoglobin A1C 7.5 % (<5.7)
--- NOTE | 2022-11-08 10:03 | PC.NURSE ---
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
--- NOTE | 2022-11-20 14:18 | PM.DS ---
DS: Admitting Diagnosis Discharge Date 11/08/22 Admitting Diagnosis Chest pain DS: Discharge Diagnosis Discharge Diagnosis (1) NSTEMI (non-ST elevated myocardial infarction): Code(s): I21.4 - Non-ST elevation (NSTEMI) myocardial infarction Status: Acute Assessment and Plan: The patient has a history of well documented coronary arteriosclerosis. He had at least 2 episodes of myocardial infarction. He presented with chest pain, initial presentation is significant for atrial fibrillation with rapid ventricular response for which he is started on diltiazem drip. After he developed a junctional rhythm, diltiazem drip was put on hold. Patient is started on NPO, heparin drip, Coreg 12.5 mg p.o. b.i.d.. Eliquis was initially started but currently on hold. The cardiology service was consulted. (2) Atrial fibrillation with RVR: Code(s): I48.91 - Unspecified atrial fibrillation Status: Acute Assessment and Plan: Patient presented initially with symptomatic AFib with chest pain and palpitation. EKG shows atrial fibrillation with rapid ventricular response. He was appropriately started on diltiazem with improvement of heart rate. On the start EKG patient developed a junctional rhythm and then diltiazem was held. (3) Chest pain: Qualifiers: Chest pain type: unspecified Qualified Code(s): R07.9 - Chest pain, unspecified Code(s): R07.9 - Chest pain, unspecified Status: Resolved Assessment and Plan: Patient has a history of coronary arteriosclerosis. He presents with chest pain and is originally diagnosed with atrial fibrillation. He had a due to persistent elevation of troponin, is being evaluated for NSTEMI. Give nitroglycerin as needed. (4) Diabetic retinopathy of both eyes associated with type 2 diabetes mellitus: Code(s): E11.319 - Type 2 diabetes mellitus with unspecified diabetic retinopathy without macular edema Status: Acute Assessment and Plan: Hold metformin. Start the patient on insulin sliding scale protocol while monitoring accu- checks. Check HGB A1c. (5) Mild intermittent asthma, uncomplicated: Code(s): J45.20 - Mild intermittent asthma, uncomplicated Status: Acute Assessment and Plan: Currently patient is not in acute exacerbation. 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 b.i.d.. Beta-blockade on hold due to junctional rhythm. Plan Patient admitted under observation. Patient admitted to imu. Cardiology was consulted. DS: Summary Hospital Course Hospital Course: 66-year-old gentleman with a past medical history including but not limited to CAD status post ND x2, diabetes mellitus, hypertension, dyslipidemia, cholecystitis who present to the emergency department with complaint of chest pain and palpitation.? The symptoms started about 2 hours prior to presentation.? The patient was walking to get water from his AC.? At that time, he noted some palpitations associated with dull and pressure-like chest pain, rated 6/10, radiating to the left arm.? Physical exertion worsens the pain, he complained of some shortness of breath but denies nausea, vomiting or lightheadedness. On admission to the emergency department, the patient shows the following vital signs a heart rate of 136, respiration 16, blood pressure 134/76, pulse ox 99%.? An EKG demonstrated atrial fibrillation with rapid ventricular response, with ST depression.? The patient was medicated with IV diltiazem followed by diltiazem drip.? His heart rate improved to the 60s.? Basic labs were drawn.? He CBC shows a WBC of 6.8,
== END 2022-11-08 10:07 | disposition left against medical advice (07) | DRG 303 ==
LOC: ANHED 20:41 → ANH3MEDSUR 11-08 00:05 → ANHIMU 11-08 09:03
PROVIDERS: Admitting Provider Internal Medicine; Emergency Provider Preventive Medicine Aerospace Medicine; PCP Family Medicine; Visit Provider Student in an Organized Health Care Education/Training Program
DX: I25.10 Atherosclerotic heart disease of native coronary artery without angina pectoris (principal); G90.3 Multi-system degeneration of the autonomic nervous system; E78.5 Hyperlipidemia, unspecified; E78.2 Mixed hyperlipidemia; E11.319 Type 2 diabetes mellitus with unspecified diabetic retinopathy without macular edema; E66.01 Morbid (severe) obesity due to excess calories; I48.91 Unspecified atrial fibrillation; I10 Essential (primary) hypertension; I25.2 Old myocardial infarction; J45.20 Mild intermittent asthma, uncomplicated; R07.9 Chest pain, unspecified; Z95.5 Presence of coronary angioplasty implant and graft; Z90.49 Acquired absence of other specified parts of digestive tract; Z79.82 Long term (current) use of aspirin; Z79.84 Long term (current) use of oral hypoglycemic drugs; Z79.02 Long term (current) use of antithrombotics/antiplatelets; Z68.31 Body mass index [BMI] 31.0-31.9, adult
CPT/HCPCS: 36415; 71045; 80048; 80053; 83036; 83735; 84484; 85025; 85610; 85730; 93005; 96365; 99285; A9270; J1644

== ENCOUNTER 2022-11-28 06:55 | Outpatient (CLI) | payer MEDICARE, OTHER, SELFPAY ==
--- NOTE | ~2022-11-28 | XR_ITS ---
AP and lateral views of the right hip Clinical history: Pain Findings: No acute fracture or dislocation is seen. Osseous alignment is anatomic. Right hip joint an d right SI joint are preserved. Soft tissues are unremarkable. Impression: No significant abnormality is seen. Reviewed, dictated and finalized at [facility]. Impression: No significant abnormality is seen.
== END 2022-11-28 06:56 ==
PROVIDERS: PCP Internal Medicine Cardiovascular Disease; Visit Provider Family Medicine
DX: M25.551 Pain in right hip (principal)
CPT/HCPCS: 73502

== ENCOUNTER 2022-12-23 01:04 | Day surgery (SDC) | payer MEDICARE, OTHER, SELFPAY ==
[2022-12-22 12:30] VITALS: BMI 31.5
[2022-12-23] VITALS (19 sets, daily range): BP systolic 132–177; BP diastolic 72–96; PULSE 58–73; RESP 14–18; TEMP 36.2–36.4; O2SAT 97–100; BMI 31.1
[2022-12-23 07:51] LABS: Anion Gap 7 mmol/L (8-16); Blood Urea Nitrogen 16 mg/dL (9-20); Calcium 9.1 mg/dL (8.4-10.2); Carbon Dioxide 27 mmol/L (22-30); Chloride 103 mmol/L (98-107); Estimated CRCL calculation 114 ml/min; Estimated Glomerular Filt Rate > 60; Glucose 180 mg/dL (65-110); Potassium 4.9 mmol/L (3.4-5.0); Sodium 137 mmol/L (137-145)
[2022-12-23 07:57] LABS: INR 1.1; Prothrombin Time 14.7 Seconds (11.1-14.7)
[2022-12-23 08:12] LABS: Basophils Percent Auto 0.7 % (0.2-1.2); Eosinophils Absolute Auto 0.2 K/mm3 (0-0.3); Eosinophils Percent Auto 4.2 % (0-4.4); Hematocrit 45.3 % (42.0-52.0); Immature Granulocyte Absolute 0.01 K/mm3 (0.00-0.031); Immature Granulocyte Percent A 0.2 % (0-0.5); Lymphocytes Absolute Auto 1.59 K/mm3 (0.9-3.2); Lymphocytes Percent Auto 27.5 % (18.3-44.2); Mean Corpuscular HGB Conc 33.1 g/dl (32-36); Mean Corpuscular Hemoglobin 31.3 pg (26-34); Mean Corpuscular Volume 94.4 fl (80-100); Mean Platelet Volume 11.2 fl (7.4-10.4); Monocytes Absolute Auto 0.6 K/mm3 (0.1-0.6); Neutrophils Absolute Auto 3.3 K/mm3 (1.3-6.7); Neutrophils Percent Auto 57.4 % (45.5-73.1); Platelet Count Result 177 k/mm3 (150-375); Red Cell Distribution Width 12.5 % (11.5-14.5); White Blood Count 5.8 K/mm3 (4.5-10.0)
--- NOTE | 2022-12-23 09:09 | WPDMODSED ---
Moderate Sedation Note-Pt Data Patient Data Diagnosis: Coronary artery disease with previous inferior wall mi treated with stents to the distal RCA and RPDA in 2013 known a diffuse coronary artery disease diabetes recent episode of atrial fibrillation with RVR, chose to leave hospital AMA at that time Lexiscan nuclear stress test demonstrating previous inferior infarction Present Complaint: no complaint this morning Procedure to be performed/Plan: left heart catheterization Allergies Allergy/AdvReac Type Severity Reaction Status Date / Time No Known Allergies Allergy Verified 12/23/22 07:26 Home Medications Medication Instructions Recorded Confirmed Type aspirin 81 mg tablet,delayed 81 mg PO DAILY 06/12/19 12/22/22 History release mecobalamin (vitamin B12) 1,000 1 mcg PO DAILY 06/12/19 12/22/22 History mcg chewable tablet metformin 1,000 mg tablet 1,000 mg PO BID #180 tabs 11/17/22 12/22/22 Rx dapagliflozin propanediol 5 mg 5 mg PO DAILY #90 tabs 12/02/22 12/23/22 Rx tablet (Farxiga) blood sugar diagnostic #100 ea 12/20/22 Rx carvedilol 12.5 mg tablet 6.25 mg PO BID 12/22/22 12/23/22 History simvastatin 20 mg tablet 20 mg PO DAILY 12/22/22 12/22/22 History Current Medications: Active Medications Sodium Chloride (Normal Saline Iv) 500 mls @ 100 mls/hr IV CONT .Q5H JUAN Sedation/Anesthesia: No previous sedation/anesthesia problems (including family history). [facility] Past Medical History Medical History (Updated 11/15/22 @ 09:30 by Karan Briceño MD) Acute cholecystitis Acute right hip pain Asymptomatic cholelithiasis Chronic cholecystitis with calculus Costochondritis, acute Encounter for surgical aftercare following surgery on the digestive system Essential (primary) hypertension Foot ulcer healed High cholesterol History of kidney stones Loss of taste Mixed hyperlipidemia Obesity, morbid Old myocardial infarct last on 2012 Screen for colon cancer Shy-Drager syndrome Symptomatic cholelithiasis Toe ulcer due to DM healed Type 2 diabetes mellitus with hyperglycemia Unresolved grief Ventral hernia without obstruction or gangrene Surgical History Surgical History H/O eye surgery H/O umbilical hernia repair History of heart artery stent Hx laparoscopic cholecystectomy 05/11/20 Family History Family History Father Patient's father is , Onset Age: 34 Grandparent Carcinoma of colon Sibling Family history of type 1 diabetes mellitus Other Diabetes mellitus Social History Social History Smoking status: Never smoker Tobacco type: cigarettes Second hand tobacco smoke exposure: No Alcohol intake: never Substance use: never Substance use type: does not use Lack of Transportation: No Lack of Food: Never True Current Housing: I Have Housing Concerned About Future Housing: No Difficulty Paying Gas/Electric Bills: No Difficulty Paying for Meds: No Currently Unemployed: No Education: Trade/Vocational Certificate Difficulty w/ Childcare or Family Care: No Living arrangements: with family Gender identity (if verbalized by the patient): Male Spiritual care concerns: No Mod Sed Physical Exam Physical Exam Pre Procedural Exam: Normal: Neck, Throat, Airway, Lungs, Heart Size, Heart Rate, Heart Rhythm ( S4 is noted currently in sinus rhythm), Neuro Exam and Extremities and Variation: Appearance ( chronically ill-appearing man no apparent distress) Hours since solid foods: 12 Hours since liquid intake: 12 Mallampati Classification: class II Internal Medicine - PN: Obj Da Vital Signs Vital Signs: Vital Signs - 24 hr 12/23/22 07:34 Temperature 36.4 C Pulse Rate 73 Respiratory Rate 15 Blood Pressure 177/96 H Pulse Oximetry 99 Oxygen Delivery Room A
--- NOTE | 2022-12-23 09:44 | WPDCARDPROC ---
Cardiac Cath Procedure Note Date of procedure:: 12/23/22 Performing physician:: Tom Mejia MD Indication:: coronary artery disease with previous inferior wall infarction diabetes recent episode of atrial fibrillation abnormal nuclear stress test Brief clinical history:: this is a 67 year man with diabetes and diffuse coronary artery disease. In 2012 he underwent emergency stenting of the distal RCA and RPDA in the setting of acute inferior ST-elevation [place]. previous to that the proximal to mid RCA was also stented. Angiographically in 2013 he was known to have severe diffuse coronary disease as well. After an episode of atrial fibrillation recently a nuclear stress test was performed as an outpatient. This demonstrates previous infarction of inferior wall. He is not reporting anginal type symptoms Procedure Procedure performed:: left ventriculogram coronary angiogram Sedation/Medication given:: fentanyl 50 mg Versed 2 mg case start time 9:16 a.m. case end time 9:35 a.m. sedation provided by Galina Romo RN, trained observer Access site:: left femoral artery Estimated blood loss:: 25 cc Procedure note:: patient was brought to the cardiac catheterization lab where the femoral triangles were prepared and draped in the usual fashion. Anesthesia was given in the left groin with 1% lidocaine and following this the left femoral artery was punctured and a 5 [place] Islander vascular sheath was placed. Following this I used a 5 [place] angled pigtail catheter to measure left-sided hemodynamics and to perform a left ventricular ejection in the 30 degree SOMMER projection. After this standard 5 [place] FL4 catheter was used to engage and inject the left coronary artery and then a 5 [place] JR4 catheter was used right coronary artery. The cineangiograms were then reviewed and the case was terminated. He was taken to the holding area for manual sheath removal. Procedure was well tolerated and uncomplicated and there was no evidence of a left groin hematoma upon departure from the cardiac catheterization lab. Findings:: Hemodynamics: Central aortic pressure is 1 84 over 94 left ventricle 184/5 end-diastolic pressure 16 there is no gradient on pullback across the aortic valve. Left ventricle: The left ventricle is mildly enlarged. The infero posterior segments are akinetic. The remainder of the LV contracts well the global ejection fraction I would visually estimate to be 45-50%. The left main coronary artery is medium in caliber there is mild distal left main stenosis of about 40-50%. The left anterior descending is a moderately calcified diffusely diseased artery. There are mild diffuse plaques throughout the proximal 2/3 of the LAD. There is a 90-95% stenosis and distal 1/3 of the LAD angiographically this was seen in 2013. There are 3 diagonal branches. First diagonal branch has diffuse 50-60% stenosis. The 2nd diagonal branch has diffuse proximal 95% stenosis. The 3rd diagonal branch has proximal 99% stenosis. The circumflex is a moderate caliber artery. The ramus intermedius/ 1st OM takes off as a trifurcation from the left main. It is moderately diffusely diseased approximately 50-60% diffuse stenosis is seen in the ramus. Then there is a 2nd OM branch which is 100% occluded proximally. This was seen 2013. The 3rd OM branch is medium in caliber and has a proximal 70-80% stenosis. There is a small terminal AV groove branch following 3rd OM that is small and without significant lesion. The right coronary artery was large in caliber and dominant to the posterior circulation. It is severely diseased and moderately calcified. There is a stented segment in the proximal right coronary artery a stented segment in the distal RCA prior to the bifurcation and a stent in the RPDA. There is 90% stenosis in the right coronary just after the 1st stent. There is 99% stenosis the 2nd to 3rd portion of the right guajardo
== END 2022-12-23 15:40 | disposition home or self-care (01) ==
PROVIDERS: PCP Family Medicine; Visit Provider Specialist
PROC: 4A023N7 Measurement of Cardiac Sampling and Pressure, Left Heart, Percutaneous Approach (ICD-10-PCS; CPT 93452; principal; 2022-12-23 09:00)
DX: I25.10 Atherosclerotic heart disease of native coronary artery without angina pectoris (principal); R94.39 Abnormal result of other cardiovascular function study; I25.2 Old myocardial infarction; I48.91 Unspecified atrial fibrillation; Z95.5 Presence of coronary angioplasty implant and graft; E11.9 Type 2 diabetes mellitus without complications; I10 Essential (primary) hypertension; E78.2 Mixed hyperlipidemia; E66.9 Obesity, unspecified; Z68.31 Body mass index [BMI] 31.0-31.9, adult; Z79.82 Long term (current) use of aspirin; Z79.84 Long term (current) use of oral hypoglycemic drugs
CPT/HCPCS: 36415; 80048; 85025; 85610; 93458; C1887; C1894; J1644; J2250; J3010; J7040

== ENCOUNTER 2025-04-17 00:18 | Inpatient (IN) | payer MEDICARE, SELFPAY ==
[2025-04-17] VITALS (22 sets, daily range): BP systolic 105–167; BP diastolic 56–96; PULSE 68–97; RESP 15–22; TEMP 36.4–36.9; O2SAT 95–100
--- NOTE | ~2025-04-17 | XR_ITS ---
EXAMINATION: XR chest 2V 04/17/2025 11:02 INDICATION: Shortness of breath PROCEDURE: 2 view chest COMPARISON: Comparison to multiple prior studies sequentially, with oldest reviewed study dated 07/06/2009. FINDINGS: The lungs are clear. The cardiomediastinal silhouette is within normal limits. There are no pleural effusions. There is no pneumothorax suspected. IMPRESSION: 1: NO ACUTE CARDIOPULMONARY DISEASE. Reviewed, dictated and finalized at location O. BOARD MAN
--- NOTE | ~2025-04-17 | XR_ITS ---
EXAMINATION: C-arm assistance for retrograde placement of stent, left ureter myelogram: DATE: 04/19/2025. INDICATION: Left UPJ stone with obstruction TECHNIQUE: C-arm assistance was provided for left pyelogram and stent placement. Satisfactory positioning of the stent in the left ureter. Fluoroscopic exposure time 54.5 seconds. COMPARISON: CT dated 04/17/2025. IMPRESSION: 1. As above Reviewed, dictated and finalized at location T. OR SYSTEMS DEVELOPER IMPRESSION: 1. As above
--- NOTE | ~2025-04-17 | XR_ITS ---
[XR ribs LT 2V ] INDICATION: Left rib injury TECHNIQUE: Frontal projection of the upper left ribs, frontal projection of the lower left ribs, oblique projection of all the left ribs, frontal inspiratory chest x-ray for interpretation. FINDINGS: There are no displaced rib fractures identified. There are no soft tissue abnormality seen. The lungs are clear. IMPRESSION: 1:No acute displaced rib fractures. Reviewed, dictated and finalized at location O. TECHNOLOGIST
--- NOTE | ~2025-04-17 | CT_ITS ---
EXAMINATION: CT abdomen pelvis w con DATE: 04/17/2025 09:36 INDICATION: Left-sided abdomen pain TECHNIQUE: Computed tomography (CT) of the abdomen and pelvis was performed with 100 cc Omnipaque 350 intravenous contrast. The dose-length product was 688.43 mGy-cm. Automated exposure control and iterative reconstruction technique were employed. COMPARISON: None. CT dated 05/14/2020 FINDINGS: There is a 5-6 mm left UPJ stone with mild hydronephrosis. There is dependent atelectasis. Borderline heart size. Small pericardial effusion. No pleural effusion. The liver, spleen, pancreas, adrenal glands and right kidney are unremarkable. Status post cholecystectomy. Nonobstructive bowel gas pattern. Colonic diverticulosis without evidence for diverticulitis. No free air or free fluid. There is atherosclerosis of the aorta without aneurysm. IMPRESSION: 1. Left UPJ stone measuring 5-6 mm with mild hydronephrosis. Reviewed, dictated and finalized at location O. ESTIMATOR
--- NOTE | 2025-04-17 07:16 | ECG_ITS ---
Test Date: 2025-04-17 07:28:32 Measurements Intervals [place] Rate: 80 P: -3 [place]: 139 QRS: -31 QRSD: 108 T: 65 QT: 360 QTc: 417 Interpretive Statements SINUS RHYTHM LEFT AXIS DEVIATION INCOMPLETE RIGHT BUNDLE BRANCH BLOCK MINIMAL Q WAVES- HIGH LATERAL LEADS ST ABNORMALITY IN ANTEROLAT/HIGH LAT LEADS- CONSIDER ISCHEMIA BASELINE ARTIFACT- I, II, III, AVR ABNORMAL ECG No previous ECG available for comparison Electronically Signed On 04-17-2025 08:55:54 VEST BUSHELER by Flo Maldonado D.O.
[2025-04-17] MEDS: ONDANSETRON INJ 4 MG/2 ML VIAL IV PUSH ×2 (07:44→12:17)
[2025-04-17] MEDS: MORPHINE SULFATE (*CRX) 4 MG/ML INJ 2 MG IV PUSH (07:45)
[2025-04-17 07:52] LABS: Hematocrit 43.8 % (42.0-52.0); Hemoglobin 15.0 g/dL (14.0-18.0); Immature Granulocyte Percent A 0.3 % (0-0.5); Lymphocytes Absolute Auto 0.72 K/mm3 (0.9-3.2); Mean Corpuscular HGB Conc 34.2 g/dl (32-36); Mean Corpuscular Hemoglobin 31.1 pg (26-34); Mean Corpuscular Volume 90.9 fl (80-100); Nucleated Red Blood Cells Absolute Auto 0.000 K/mm3 (0.0-0.012); Nucleated Red Blood Cells Perc 0.0 % (0.0-0.2); Platelet Count Result 217 k/mm3 (150-375); Red Blood Count 4.82 M/mm3 (4.6-6.20); White Blood Count 8.9 K/mm3 (4.5-10.0)
[2025-04-17 08:08] LABS: INR 1.2; Prothrombin Time 15.0 Seconds (11.1-14.7)
[2025-04-17 08:11] LABS: Partial Thromboplastin Time 26.4 Seconds (22.3-36.8)
[2025-04-17 09:22] LABS: Alanine Aminotransferase 21 U/L (6-50); Albumin Level 3.8 g/dL (3.5-5.1); Alkaline Phosphatase 84 U/L (38-126); Anion Gap 7 mmol/L (4-12); Aspartate Amino Transferase 20 U/L (17-59); Bilirubin,Total 0.5 mg/dL (0.2-1.3); Blood Urea Nitrogen 19 mg/dL (9-20); Calcium 9.6 mg/dL (8.4-10.2); Carbon Dioxide 28 mmol/L (22-30); Chloride 105 mmol/L (98-107); Estimated CRCL calculation 52 ml/min; Estimated Glomerular Filt Rate > 60; Glucose 176 mg/dL (65-110); Potassium 4.8 mmol/L (3.4-5.0); Sodium 140 mmol/L (137-145); Total Protein 6.3 g/dL (6.3-8.2)
[2025-04-17 09:47] LABS: Troponin I 0.092 ng/mL (0.000-0.034)
--- NOTE | 2025-04-17 10:38 | ED.ABDPAIN ---
HPI - Abdominal Pain General Chief Complaint: Abdominal Pain Stated Complaint: left sided rib pain Time Seen by Provider: 04/17/25 07:05 History of Present Illness HPI narrative: Patient is a 69-year-old male who presents ER with left-sided abdominal pain/rib pain. It is up on his abdomen under his ribs. It will come up around 10:00 p.m.. No urinary frequency urgency or dysuria. Has chronic diarrhea without change since this started. Cannot identify any aggravating or alleviating factors. He does report some intermittent chest discomfort since last night as well. Patient has history of coronary disease and cardiac stenting. He sees Dr. Maldonado. He says sometimes he gets discomfort in his chest that is related to needing to belch. He is unsure if that is what is going on at this time, he has been vomiting related to his abdominal discomfort. Related Data Home Medications ?Medication ?Instructions ?Recorded ?Confirmed ?Last Taken ?Type aspirin 81 mg tablet,delayed 81 mg PO DAILY 06/12/19 04/17/25 04/16/25 History release mecobalamin (vitamin B12) 1,000 3,000 mcg PO DAILY 06/12/19 04/17/25 04/16/25 History mcg chewable tablet carvedilol 12.5 mg tablet 12.5 mg PO DAILY 02/27/25 04/17/25 04/16/25 History Allergies Allergy/AdvReac Type Severity Reaction Status Date / Time No Known Allergies Allergy Verified 04/17/25 13:13 Review of Systems Review of Systems: All systems reviewed & are unremarkable except as noted in HPI and below Constitutional: Constitutional: Reports no additional constitutional complaints Cardiovascular: Cardiovascular: Reports no additional cardiovascular complaints Respiratory: Respiratory: Reports no additional respiratory complaints Gastrointestinal: Gastrointestinal: Reports no additional gastrointestinal complaints Genitourinary: Genitourinary: Reports no additional male genitourinary complaints [facility] Past Medical History Medical History Diabetes mellitus with neuropathy PAF (paroxysmal atrial fibrillation) Depression Psoriasis Eye hemorrhage bilateral, previously treated with laser CAD (coronary artery disease) NE x2, Stent x3 Diarrhea Colonoscopy refused NSTEMI (non-ST elevated myocardial infarction) Foot ulcer healed Chronic cholecystitis with calculus History of kidney stones Toe ulcer due to DM healed Shy-Drager syndrome Essential (primary) hypertension Mixed hyperlipidemia Ventral hernia without obstruction or gangrene Surgical History Surgical History History of cholecystectomy Hx laparoscopic cholecystectomy 05/11/20 H/O umbilical hernia repair H/O eye surgery History of heart artery stent Family History Family History Father Patient's father is , Onset Age: 34 smoke 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 Social History Social History Smoking status: Never smoker Second hand tobacco smoke exposure: Yes Alcohol intake: never Drinks per week: 0 Substance use: never Substance use type: does not use Lack of Transportation: No Lack of Food: Never True Current Housing: I Have Housing Concerned About Future Housing: No Difficulty Paying Gas/Electric Bills: No Difficulty Paying for Meds: No Currently Unemployed: No Education: High School Diploma/GED Difficulty w/ Childcare or Family Care: No Living arrangements: with family Occupation/Education: retired Additional occupation/education comments: [employer] Gender identity (if verbalized by the patient): Male Spiritual care concerns: No Exam Narrative: GENERAL: Chronically ill-appearing, well-nourished, and in no acute distress. HEAD: Normocephalic, atraumatic. ENT: Mucous membranes moist. CHEST: Clear to auscultation. No respiratory distress. HEART: Regular rate and rhythm. Normal peripheral pulses. ABDOMEN: Soft, tender palpation left upper and left lower quadrant, nondistended. EXTREMITIES: Normal range of motion. No edema. SKIN: Warm, dry, no rash. NEURO: Alert and oriented x3. PSYCH: Normal mood and affect. Course Course Emergency Course: Patient resting comfortably. Still reports some mild chest discomfort. Troponin elevated and there is ST depression on the EKG. Patient's abdominal pain likely related to his UPJ obstruction. Will reach out to consultants. It is felt patient required admission. Dr. Horowitz will consult on patient for Dr. Maldonado. Patient declines heparinized 1st troponin due to history of hemorrhage his retina. He reports he would be open to it if his troponin is trending up. Urology will consult on the patient in the hospital will delay any procedure until cleared from cardiac standpoint. Patient's pain seems to be reasonably controlled right now. Patient accepted by the hospitalist service. Troponin tender ending up. Patient consented to the heparin being started. Ordered and will be started on the floor as patient is transferring upstairs right now. Vital Signs Vital signs: Vital Signs Temperature 97.5 F L 04/17/25 00:20 Pulse Rate 83 04/17/25 00:20 Respiratory Rate 18 04/17/25 00:20 Blood Pressure 152/89 H 04/17/25 00:20 Pulse Oximetry 100 04/17/25 00:20 Oxygen Delivery Room Air 04/17/25 00:20 Temperature 98.5 F 04/17/25 16:00 Pulse Rate 71 04/17/25 16:00 Respiratory Rate 18 04/17/25 16:00 Blood Pressure 140/69 04/17/25 16:00 Pulse Oximetry 96 04/17/25 16:00 Oxygen Delivery Room Air 04/17/25 00:20 MDM Differential Diagnosis Differential Diagnosis: Diverticulitis, kidney stone, non ST elevation NE, pneumonia, rib fracture Medical Records I have reviewed the following patient records and this information was taken into consideration when formulating the assessment and plan.: previous labs Lab Data MDM Lab Attestation statement: I personally reviewed the patient's lab results. 04/17/25 07:47 04/17/25 08:57 Labs: Lab Results 04/17/25 04/17/25 04/17/25 Range/Units 07:47 08:57 11:17 WBC 8.9 (4.5-10.0) K/mm3 RBC 4.82 (4.6-6.20) M/mm3 Hgb 15.0 (14.0-18.0) g/dL Hct 43.8 (42.0-52.0) % MCV 90.9 (80-100) fl MCH 31.1 (26-34) pg MCHC 34.2 (32-36) g/dl RDW 12.6 (11.5-14.5) % Plt Count 217 (150-375) k/mm3 MPV 10.5 H (7.4-10.4) fl Immature Gran % (Auto) 0.3 (0-0.5) % Neut % (Auto) 82.3 H (45.5-73.1) % Lymph % (Auto) 8.1 L (18.3-44.2) % [place] % (Auto) 8.9 H (2.6-8.5) % Eos % (Auto) 0.1 (0-4.4) % Baso % (Auto) 0.3 (0.2-1.2) % Lymph # (Auto) 0.72 L (0.9-3.2) K/mm3 [place] # (Auto) 0.8 H (0.1-0.6) K/mm3 Eos # (Auto) 0.0 (0-0.3) K/mm3 Baso # (Auto) 0.0 (0.0-0.1) K/mm3 Abs Immat Gran (auto) 0.03 (0.00-0.031) K/mm3 Absolute Neuts (auto) 7.3 H (1.3-6.7) K/mm3 Absolute Nucleated RBC 0.000 (0.0-0.012) K/mm3 Nucleated RBC % 0.0 (0.0-0.2) % PT 15.0 H (11.1-14.7) Seconds INR 1.2 APTT 26.4 (22.3-36.8) Seconds Sodium 140 (137-145) mmol/L Potassium 4.8 (3.4-5.0) mmol/L Chloride 105 (98-107) mmol/L Carbon Dioxide 28 (22-30) mmol/L Anion Gap 7 (4-12) mmol/L BUN 19 (9-20) mg/dL Creatinine 1.17 (0.7-1.3) mg/dL Estim Creat Clear Calc 52 ml/min Estimated GFR > 60 (59 - ) Glucose 176 H (65-110) mg/dL Calcium 9.6 (8.4-10.2) mg/dL Total Bilirubin 0.5 (0.2-1.3) mg/dL AST 20 (17-59) U/L ALT 21 (6-50) U/L Alkaline Phosphatase 84 (38-126) U/L Troponin I 0.092 H* (0.000-0.034) ng/mL Total Protein 6.3 (6.3-8.2) g/dL Albumin 3.8 (3.5-5.1) g/dL Urine Color Yellow (Yellow) Urine Appearance Clear (Clear) Urine pH 7.0 (5.0-9.0) Ur Specific [place] > 1.045 H (1.001-1.035) Urine Protein Negative (Negative) mg/dL Urine Glucose (UA) 3+ H (Negative) mg/dL Urine Ketones Trace H (Negative) mg/dL Ur Blood (Man) 3+ H (Negative) Urine Nitrate Negative (Negative) Urine Bilirubin Negative (Negative) Urine Urobilinogen 1.0 (<2.0) mg/dL Leukocyte Esterase Rfl Negative (Negative) MARIO ALBERTO/UL Urine RBC >100 H (0-2) /hpf Urine WBC 0-5 (0-3) /hpf Ur Squamous Epith Cells None seen (Few) /hpf Urine Bacteria None seen /hpf Urine Casts 0-2 Imaging Data Radiologist's impression: ITS Impressions Abdomen/Pelvis CT 04/17/25 09:44 IMPRESSION: 1. Left UPJ stone measuring 5-6 mm with mild hydronephrosis. Ribs X-Ray 04/17/25 10:02 IMPRESSION: 1:No acute displaced rib fractures. Chest X-Ray 04/17/25 11:10 IMPRESSION: 1: NO ACUTE CARDIOPULMONARY DISEASE. ECG Data EKG #1: ECG completion date: 04/17/25 ECG completion time: 07:28 normal rate (80), sinus rhythm, ST depression (v4-6), normal QRS, RBBB (incomplete), normal QT and left axis Critical Care Time Critical Care Time Critical Care Time: Yes Time Type: Intermittent Initial evaluation, discuss w/ involved parties, attempting to gather old records: 10 minutes Documenting medical record: 5 minutes Review of results (EKG's, labs, imaging): 5 minutes Serial repeat bedside evaluation: 10 minutes Discussing case with multiple memebers of the care team and consultants: 5 minutes Total Critical Care Time: 35 Discharge Plan Discharge Clinical Impression: Chest pain, Obstruction of left ureteropelvic junction (UPJ) due to stone, Non-ST elevated myocardial infarction Patient Disposition: Still a Patient Condition: Stable
[2025-04-17 11:28] LABS: Add Urine Microscopic? YES; Appearance Urine Clear (Clear); Glucose Urine UA 3+ mg/dL (Negative); Leukocyte Esterase Ur Negative LEU/UL (Negative); Nitrate Urine Negative (Negative); Non Pathogenic Casts 0-2; Specific Grav Ur > 1.045 (1.001-1.035)
--- NOTE | 2025-04-17 12:01 | ECG_ITS ---
Test Date: 2025-04-17 12:05:07 Measurements Intervals [place] Rate: 74 P: -11 [place]: 137 QRS: -32 QRSD: 125 T: 84 QT: 370 QTc: 412 Interpretive Statements SINUS RHYTHM LEFT AXIS DEVIATION MINIMAL Q WAVES- HIG HLATERAL LEADS ST-T WAVE ABNORMALITY IN ANTEROLAT/HIGH LAT LEADS- CONSIDER ISCHEMIA BASELINE ARTIFACT- I, II, AVR ABNORMAL ECG Compared to ECG 04/17/2025 07:28:32 NO SIGNIFICANT CHANGE Electronically Signed On 04-17-2025 16:36:15 INSTRUCTIONAL LEADER by Flo Maldonado D.O.
[2025-04-17] MEDS: SODIUM CHLORIDE 0.9% IV 1,000 ML 125 ML IV CONT ×2 (12:17→20:55)
--- NOTE | 2025-04-17 12:26 | WPCEDHO ---
ED Hand Off Checklist All vitals saved: yes IV Site documented: yes All med administrations documented: yes Triage Note Triage Note Pt to ED via POV. Pt states he 04/17/25 07:15 woke up from having left sided rib pain. Pt states he vomited as well. Pt is ambulatory and is A& Ox4. Allergies No Known Allergies Allergy (Verified 04/17/25 07:19) Family History (Last Reviewed 10/03/24 @ 13:40 by Karan Briceño MD) Father Patient's father is Grandparent Carcinoma of colon Sibling Family history of type 1 diabetes mellitus Mother Diabetes mellitus Sibling No problems noted. Active Medications including assessments/comments Sodium Chloride (Normal Saline Iv) 1,000 mls @ 125 mls/hr IV CONT .Q8H JUAN Last Admin: 04/17/25 12:17 Dose: 125 mls/hr Documented By: JALEN Infusion/Titration Document 04/17/25 12:17 CHASET (Rec: 04/17/25 12:17 KJT [id number]) Intake IV Site Peripheral Access Left Wrist Container Volume 1,000 Waste Amount 0 Dosing Infusion Rate 125 Cumulative Dose Not Applicable Increase/Decrease Started Elapsed Time Elapsed Time ( 0m minutes) Ondansetron HCl (Ondansetron Inj 4 Mg/2 Ml Vial) 4 mg IV PUSH Q4H PRN PRN Reason: Nausea Last Admin: 04/17/25 12:17 Dose: 4 mg Documented By: JALEN Administered/Completed Medications Discontinued Medications Morphine Sulfate (Morphine Sulfate (*Crx) 4 Mg/Ml Inj) 2 mg IV PUSH ONCE STA Stop: 04/17/25 07:17 Last Admin: 04/17/25 07:45 Dose: 2 mg Documented By: DANO Ondansetron HCl (Ondansetron Inj 4 Mg/2 Ml Vial) 4 mg IV PUSH ONCE STA Stop: 04/17/25 07:17 Last Admin: 04/17/25 07:44 Dose: 4 mg Documented By: DANO Interventions/Assessments IV / Saline Lock, Insert Start: 04/17/25 00:19 Freq: Status: Active Protocol: Document 04/17/25 07:46 CMM (Rec: 04/17/25 07:46 CMM [id number]) IV Assessment Peripheral Access Left Wrist IV Catheter Access Initiated IV Insertion Date 04/17/25 IV Insertion Time 07:46 Catheter Gauge 20 IV Insertion 2 Attempts IV Site Assessment WNL IV Care and WNL Maintenance PA: Gastrointestinal Assessment Start: 04/17/25 00:19 Freq: Status: Active Protocol: Document 04/17/25 07:16 CMM (Rec: 04/17/25 07:16 CMM [id number]) GI Assessment Gastrointestinal Nausea,Pain,Vomiting Symptoms Pattern Normal Last Vital Signs Temperature 97.5 F L 04/17/25 00:20 Pulse Rate 97 04/17/25 11:15 Respiratory Rate 22 H 04/17/25 11:15 Pulse Oximetry 95 04/17/25 11:15 Blood Pressure 149/90 H 04/17/25 11:15 Blood Pressure Mean 109 04/17/25 11:15 Blood Pressure Position Sitting 04/17/25 08:49 Oxygen Delivery Room Air 04/17/25 00:20 Weight 88.1 kg 04/17/25 07:15 Last Result - Abnormals Only MPV 10.5 fl (7.4-10.4) H 04/17/25 07:47 Neut % (Auto) 82.3 % (45.5-73.1) H 04/17/25 07:47 Lymph % (Auto) 8.1 % (18.3-44.2) L 04/17/25 07:47 [place] % (Auto) 8.9 % (2.6-8.5) H 04/17/25 07:47 Lymph # (Auto) 0.72 K/mm3 (0.9-3.2) L 04/17/25 07:47 [place] # (Auto) 0.8 K/mm3 (0.1-0.6) H 04/17/25 07:47 Absolute Neuts (auto) 7.3 K/mm3 (1.3-6.7) H 04/17/25 07:47 PT 15.0 Seconds (11.1-14.7) H 04/17/25 07:47 Glucose 176 mg/dL (65-110) H 04/17/25 08:57 Troponin I 0.092 ng/mL (0.000-0.034) H* 04/17/25 08:57 Ur Specific [place] > 1.045 (1.001-1.035) H 04/17/25 11:17 Urine Glucose (UA) 3+ mg/dL (Negative) H 04/17/25 11:17 Urine Ketones Trace mg/dL (Negative) H 04/17/25 11:17 Ur Blood (Man) 3+ (Negative) H 04/17/25 11:17 Urine RBC >100 /hpf (0-2) H 04/17/25 11:17 Most Recent Suicide Severity Rating Suicide Severity Rating NO RISK INDICATED 04/17/25 07:15
--- NOTE | 2025-04-17 12:38 | PM.IMHP2 ---
H&P: HPI History of Present Illness Date/Time: 04/17/25 12:38 Chief Complaint: N/V, Rib Pain Narrative: 69 y/o M with PMH of NSTEMI, CAD s/p stenting, kidney stones, showing trigger syndrome, hypertension, hyperlipidemia, and diabetes presents here with nausea, vomiting, and chest wall/rib pain. The patient presents here on 04/17 via personal vehicle from home for further evaluation of nausea, vomiting, and left-sided rib pain. He reports onset around 10:30 last night that woke him from his sleep. He describes the pain as sharp, left lateral rib pain, constant, with no modifying factors. He reports associated nausea and vomiting, mild. States the pain is different from his previous kidney stones. He reports intermittent chest pain as well that has been ongoing for the past 2 days. He reports he typically gets chest pain when he is constipated or needs to belch. Hhe reports he had diarrhea 2 days ago and yesterday had a very small bowel movement that he described hard and the size of a marble. He denies any associated shortness of breath, fever, chills, body aches, dizziness, or palpitations. He has a past medical history significant for kidney stones, heart attack, and coronary artery stents. Currently follows with a bass viol repairer, Dr. Maldonado. Initial VS at presentation: 97.5? F, HR 83, R 18, 152/89, and 100% on RA. ED workup showed: No leukocytosis, no anemia, INR 1.2, no significant electrolyte derangements, creatinine 1.17 and GFR >60, glucose 176, initial troponin 0.092, and UA showed no indicators of infection. CT of the abdomen/pelvis showed a left UPJ stone measuring 5-6 mm with mild hydronephrosis. Rib XR showed no acute displaced rib fractures. CXR showed no acute cardiopulmonary disease. EKG showed sinus rhythm, left axis deviation, incomplete RBBB, minimal Q-waves in high lateral leads, ST depression. Review of Systems Review of Systems: All systems reviewed & are unremarkable except as noted in HPI and below [facility] Past Medical History Medical History Diabetes mellitus with neuropathy PAF (paroxysmal atrial fibrillation) Depression Psoriasis Eye hemorrhage bilateral, previously treated with laser CAD (coronary artery disease) [place] x2, Stent x3 Diarrhea Colonoscopy refused NSTEMI (non-ST elevated myocardial infarction) Foot ulcer healed Chronic cholecystitis with calculus History of kidney stones Toe ulcer due to DM healed Shy-Drager syndrome Essential (primary) hypertension Mixed hyperlipidemia Ventral hernia without obstruction or gangrene Surgical History Surgical History History of cholecystectomy Hx laparoscopic cholecystectomy 05/11/20 H/O umbilical hernia repair H/O eye surgery History of heart artery stent Family History Family History Father Patient's father is , Onset Age: 34 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 Social History Social History Smoking status: Never smoker Second hand tobacco smoke exposure: Yes Alcohol intake: never Drinks per week: 0 Substance use: never Substance use type: does not use Lack of Transportation: No Lack of Food: Never True Current Housing: I Have Housing Concerned About Future Housing: No Difficulty Paying Gas/Electric Bills: No Difficulty Paying for Meds: No Currently Unemployed: No Education: High School Diploma/GED Difficulty w/ Childcare or Family Care: No Living arrangements: with family Occupation/Education: retired Additional occupation/education comments: [employer] Gender identity (if verbalized by the patient): Male Spiritual care concerns: No Meds Home Medications and Allergies Home Medications ?Medication ?Instructions ?Recorded ?Confirmed ?Type aspirin 81 mg tablet,delayed 81 mg PO DAILY 06/12/19 04/17/25 History release mecobalamin (vitamin B12) 1,000 3,000 mcg PO DAILY 06/12/19 04/17/25 History mcg chewable tablet dapagliflozin propanediol 10 mg 10 mg PO DAILY #90 tabs 06/04/24 04/17/25 Rx tablet (Farxiga) metformin 1,000 mg tablet 1,000 mg PO BID #180 tabs 06/04/24 04/17/25 Rx blood sugar diagnostic #100 ea 01/03/25 04/17/25 Rx sitagliptin phosphate 100 mg 100 mg PO DAILY #90 tabs 02/06/25 04/17/25 Rx tablet (Januvia) carvedilol 12.5 mg tablet 12.5 mg PO DAILY 02/27/25 04/17/25 History rosuvastatin 20 mg tablet See Rx Instructions .Route 03/12/25 04/17/25 Rx .COMPLEX #90 tabs Allergies Allergy/AdvReac Type Severity Reaction Status Date / Time No Known Allergies Allergy Verified 04/17/25 13:13 Vital Signs Vital Signs - 24 hr 04/17/25 00:20 04/17/25 02:23 04/17/25 05:08 Temperature 97.5 F L Pulse Rate 83 74 Respiratory Rate 18 18 Blood Pressure 152/89 H 167/80 H Pulse Oximetry 100 99 97 Oxygen Delivery Room Air 04/17/25 05:26 04/17/25 05:30 04/17/25 05:46 Temperature Pulse Rate Respiratory Rate Blood Pressure Pulse Oximetry 100 99 98 Oxygen Delivery 04/17/25 06:00 04/17/25 06:01 04/17/25 06:55 Temperature Pulse Rate Respiratory Rate Blood Pressure 150/79 H Pulse Oximetry 100 98 99 Oxygen Delivery 04/17/25 07:21 04/17/25 08:32 04/17/25 08:49 Temperature Pulse Rate 77 82 Respiratory Rate 20 20 Blood Pressure 138/74 161/94 H Pulse Oximetry 100 95 98 Oxygen Delivery 04/17/25 11:15 Temperature Pulse Rate 97 Respiratory Rate 22 H Blood Pressure 149/90 H Pulse Oximetry 95 Oxygen Delivery Exam Const: General: comfortable and no acute distress Other: , male, nontoxic appearance HENMT: Face/Nose/Sinus: Normal nares present Mouth: Yes moist mucous membranes Eyes: General: appearance normal, both eyes and all related structures Sclera: sclerae normal Pupils: Equal, round and reactive pupils present EOM: EOMs intact bilaterally Resp: Effort & Inspection: normal respiratory effort Auscultation: clear to auscultation bilaterally Cardio: Rate: regular rate Rhythm: regular rhythm Other: S1-S2 present without murmur, rub, ectopy GI: Other: Abdomen soft, nondistended, nontender. Normoactive bowel sounds in all quadrants. Skin: General skin exam: normal color and no rashes or lesions noted Wounds: no wounds Neuro: Speech: normal speech Motor exam (neuro): 5/5 motor strength present throughout Sensory Exam: normal sensation Other: A&O x4 Extrem: General: normal to inspection Psych: Mental Status: mental status grossly normal Affect: normal affect Other: Good insight and judgment, very pleasant Results Labs Labs: Short CBC 04/17/25 Range/Units 07:47 WBC 8.9 (4.5-10.0) K/mm3 Hgb 15.0 (14.0-18.0) g/dL Hct 43.8 (42.0-52.0) % Plt Count 217 (150-375) k/mm3 BMP 04/17/25 08:57 Sodium 140 Potassium 4.8 Chloride 105 Carbon Dioxide 28 BUN 19 Creatinine 1.17 Glucose 176 H Calcium 9.6 Cardiac Enzymes 04/17/25 Range/Units 08:57 Troponin I 0.092 H* (0.000-0.034) ng/mL Liver Function 04/17/25 Range/Units 08:57 Total Bilirubin 0.5 (0.2-1.3) mg/dL AST 20 (17-59) U/L ALT 21 (6-50) U/L Alkaline Phosphatase 84 (38-126) U/L Albumin 3.8 (3.5-5.1) g/dL Urine 04/17/25 Range/Units 11:17 Urine Color Yellow (Yellow) Urine Appearance Clear (Clear) Urine pH 7.0 (5.0-9.0) Ur Specific [place] > 1.045 H (1.001-1.035) Urine Protein Negative (Negative) mg/dL Urine Glucose (UA) 3+ H (Negative) mg/dL Quality VTE Prophylaxis VTE prophylaxis: mechanical ordered Assessment and Plan Assessment and plan (1) Non-ST elevated myocardial infarction: Code(s): I21.4 - Non-ST elevation (NSTEMI) myocardial infarction Status: Acute Assessment and Plan: Patient presented here with left lateral rib pain that is constant, sharp, stabbing that started last night around 10:30 p.m.. He has a past medical history significant for coronary artery disease, heart attack x2 and coronary stent x3. Currently follows with Dr. Maldonado for his cardiac care. His initial EKG showed ST depression. Initial troponin 0.092, repeat 0.335. Cardiology has been consulted, Dr. Horowitz, see note for full details. Further assessment, the patient has fixed coronary artery disease and should be managed medically. Recommended nitro paste, beta-jalen, statin. If BP remains elevated, may need additional medication for afterload reduction via ANTONINA/ARB/hydralazine. He has been cleared further perspective, however would be still be at an elevated risk due to his previously known cardiac history. Would recommend obtaining echo preop. But no current plans for cardiac catheterization or intervention. Would recommend starting aspirin after Urology proceeds with any clinically indicated procedures. Hesitant to start hyper as the patient has a history of bleeding in his eyes. -bedside RN related cardiac recommendations to the urologist, they are okay with proceeding with aspirin at this time and have tentative plans for procedure tomorrow -start nitro paste 1 in q.6H -continue beta-jalen, statin -moderate 8 BP, if remains elevated per cardiology add ANTONINA/ARB/hydralazine -NSTEMI to be managed medically due to history of fixed CAD -hesitant on heparin given bilateral hemorrhage to the eyes -trend troponin -telemetry monitoring (2) Obstruction of left ureteropelvic junction (UPJ) due to stone: Code(s): N20.1 - Calculus of ureter Status: Acute Assessment and Plan: Upon initial evaluation on 04/17, the patient CT of the abdomen/pelvis showed a left UPJ measuring 5-6 mm with mild hydronephrosis. He has been cleared via Cardiology and is at an elevated risk due to his previously known cardiac history, see their note. Has been discussed with the urologist, they are okay with starting aspirin. Tentative plan for procedure tomorrow on 04/18. NPO at midnight. -tentative procedure on 04/18 for a cystoscopy, left retrograde pyelogram, l and left ureteral stent placement -NPO midnight -2G of Ancef per Urology recommendations -start Flomax -IV fluids: 125 mL/hour x2 L (3) PAF (paroxysmal atrial fibrillation): Code(s): I48.0 - Paroxysmal atrial fibrillation Status: Acute Assessment and Plan: On Coreg 6.25 mg daily at home, cardiology recommended increasing to b.i.d.. Not great candidate for OAC due to previous hemorrhage to his bilateral eyes. Will continue aspirin. -increasing Coreg from 6.25 mg daily to 6.25 mg b.i.d. -continue aspirin 81 daily -telemetry (4) Diabetes mellitus with neuropathy: Qualifiers: Diabetes mellitus care home insulin use: without intermediate frame tender use Diabetes mellitus type: type 2 Qualified Code(s): E11.40 - Type 2 diabetes mellitus with diabetic neuropathy, unspecified Code(s): E11.40 - Type 2 diabetes mellitus with diabetic neuropathy, unspecified Status: Acute Assessment and Plan: - hypoglycemia protocol - POC blood glucose ACHS - home medication: Hold dapagliflozin and metformin. Continue Januvia. - correct regimen ordered - moderate dose TIDWM, based off BMI - A1C 7.9% June 2023, update. (5) Mixed hyperlipidemia: Code(s): E78.2 - Mixed hyperlipidemia Status: Acute Assessment and Plan: -update lipid panel -continue rosuvastatin (6) Essential (primary) hypertension: Code(s): I10 - Essential (primary) hypertension Status: Acute Assessment and Plan: - chronic, currently 142/96, stable. - Coreg increased from 6.25 mg daily to b.i.d., was previously prescribed 2.5 mg daily but was having issues at this does show was taking a half tablet daily. - monitor Plan Diet: Heart healthy, NPO midnight GI Prophylaxis: N/a DVT Prophylaxis: SCDs IV fluids: 125 mL/hour x2 L Lines/Tubes: pIV Code Status: Full Code. However had extensive conversation with the patient and his . If he required CPR, he would only like 1 dose of epinephrine and if he is not resuscitated after this does he would like all efforts ceased. Patient does not want to be intubated for a prolonged duration, his is aware of his wishes, but would be okay with intubation if it were temporizing. Prior Studies I have reviewed the following patient records and this information was taken into consideration when formulating the assessment and plan.: previous labs, previous ER visits, previous hospitalizations and previous clinic visits Time Spent with Patient Time with patient: 45 - 74 minutes Hospitalist MIPS Advance Care Plan I have confirmed that the patient's Advanced Care Plan is present, code status is documented, or surrogate decision maker is listed in patient medical record.: Yes Medication Reconciliation I have utilized all available resources to obtain, update and review the patients current medications (includes all prescriptions, OTC, herbals, cannabis, and nutritional supplements).: Yes
[2025-04-17 12:47] LABS: Troponin I 0.335 ng/mL (0.000-0.034)
--- NOTE | 2025-04-17 13:08 | ADMIMU ---
This patient, Silvano Trevino, was admitted to IMU status, and placed in IMU Room 213-01. Patient/family oriented to hospital policies and general routines including ID bracelet, bed and alarms, visiting hours, pain management, procedures, bathroom and other care routines, personal items, smoking policy, room service/diet, and visiting hours. Valuables list has been completed. Information on how to activate the Rapid Response Team has been discussed. Patient/Family are encouraged to report perceived risks to care and to ask questions if they do not understand what they are told or what they should do.
--- NOTE | 2025-04-17 13:38 | PM.CNCAR ---
Assessment and Plan Assessment and plan (1) Non-ST elevated myocardial infarction: Code(s): I21.4 - Non-ST elevation (NSTEMI) myocardial infarction Status: Acute (2) Obstruction of left ureteropelvic junction (UPJ) due to stone: Code(s): N20.1 - Calculus of ureter Status: Acute (3) PAF (paroxysmal atrial fibrillation): Code(s): I48.0 - Paroxysmal atrial fibrillation Status: Acute (4) Diabetes mellitus with neuropathy: Qualifiers: Diabetes mellitus type: type 2 Diabetes mellitus assistant terminal manager insulin use: without assistant terminal manager use Qualified Code(s): E11.40 - Type 2 diabetes mellitus with diabetic neuropathy, unspecified Code(s): E11.40 - Type 2 diabetes mellitus with diabetic neuropathy, unspecified Status: Acute (5) Mixed hyperlipidemia: Code(s): E78.2 - Mixed hyperlipidemia Status: Acute (6) Essential (primary) hypertension: Code(s): I10 - Essential (primary) hypertension Status: Acute Plan CAD- FIXED CAD NOTED ON CATH ABOVE IN HPI HE IS FOR MEDICAL MANAGEMENT. NO CP OR SOB OR OTHER ANGINAL EQUIVALENT. ADD NITROPASTE 1ACW Q6 CONTINUE BB STATIN AND MAY NEED ADDITONAL BP MED FOR AFTERLOAD REDUCTION ANTONINA/ARB/HYDRALAZINE. CHECK WITH UROLOGY ABOUT ASA NSTEMI- SUSPECT RELATED TO THE OCCLUDED VESSELS NOTED IN THE CATH REPORT FOR MEDICAL MANAGEMENT AND OK FOR NITRATES AND BB AND STATIN AND AFTERLOAD REDUCTION ULTIMATELY BP/HR CONTROL. DISCUSSED WITH PT HIS HX OF BLEEDING IN THE EYE LEADS TO HESITATION FOR INITIATING HEPARIN NOTED HX OF AFIB- CURRENTLY NOT IN AFIB AND EKG SHOWED NSR NOT ON OAC. CONTINUE WITH BB FOR MANAGEMENT AND HAS BEEN ON ASA 81 HE HAS ELEVATED CHADS SCORE KIDNEY STONE- NEED TO SEE IF UROLOGY IS OK WITH USE OF ASA 81MG OR NOT HAVE D/W HOSPITALIST TO GET OPINION BEFORE STARTING ASA IT MAY DELAY ANY UROLOGIC PROCEDURE PREOP- HE IS AN ELEVATED RISK FOR MACE DUE TO MULTIPLE RF FOR CAD DM/HTN/CHOL/PRIOR PR AND KNOWN HX OF CAD/ AND LV DYSFXN. RECOMMENDATIONS NOTED IN HPI. ECHO TO GAUGE THE LV FXN FOR PREOP History of Present Illness History of Present Illness Consult date/time: 04/17/25 13:38 Reason For Visit: elevated torp, upj stone, chest pain Narrative: 69 y/o here w/ abdpain on the left side found to have a Left UPJ stone measuring 5-6 mm with mild hydronephrosis. Pt was recently seen by Dr Maldonado on 02/2025 and he noted that the pt has hx of CAD and prior hx of PR he had 12/23/22 [facility] with Dr. Mejia: RCA with severe diffuse disease with prox stent and distal stent, RPDA stent, 90% stenosis after 1st stent then 99% mid-distal, 100% RPDA, LM distal 40%, LAD distal 90-95%, 1st Diag 50-60% diffuse, 2nd Diag prox 95%, 3rd Diag prox 99%, Ramus 50-60% diffuse , 2nd OM 100% prox, 3rd OM prox 70-80%. I reviewed the cath note and noted that the right coronary dominant circulation with severe diffuse multivessel coronary artery disease. currently with no good targets for revascularization and Approximately 50% distal left main stenosis and a small caliber left main and moderate diffuse disease in the LAD with high-grade 90-95% stenosis in the distal aspect of the vessel. Moderate stenosis in the 1st diagonal and high-grade stenosis in the 2nd and 3rd diagonals OM1/ramus intermedius has mild diffuse disease 50-60% as described above. Om 2 is chronically occluded and OM3 has proximal 70-80% stenosis. Large area of infarction of the posterior inferior segment with global ejection fraction of 45 to 50%. This appears to be a infarct zone by LV g as well as by recent nuclear stress testing. In discussion with pt and in room he is currently w/o sx of CP N V SOB DIAPH PALPS. He recalls he has had CP before in February when he saw Dr Maldonado and at that time was associated with GI gas and bowel symptoms. I reviewed with him the issues with the extensive nature of the CAD and the prior hx of bleeding in the eyes and is multiple risk factors and the likely need for urologic procedure in the face of rising troponins and NSTEMI. At present the safest thing to do is to initiate nitropaste 1 acw Q6 as his BP will tolerate and to continue home dose of the BB coreg 6.25mg bid (he has been taking 12.5mg QD as the pill is too small for him to cut). Doubt a repeat cath will ion exchange operator as the elevated trops are probably related to the multiple occlusions noted on the cath and seem to be medically managed. As a result we discussed that he is an elevated risk for MACE for the urologic procedure due to the hx of extensive occlusive CAD and the mild LV dysfxn noted on the LVG. The plans for med rx and bp and hr control will be the best options. An echo can be done for additonal risk stratifiction as anesthesia may want it to guage his LV fxn for volume management. Recommend to keep SBP in range of 130-150mmHG to avoid hypotension and HR in the range of 60-80. It would be ok to use BB/CCB/Nitrates and afterload reducing agents to maintain aforementioned hemodynamic parameters. I discussed the issue of ASA with the hospitalist and requested they contact Urology to see if ASA is a contraindication for them for their procedures so ASA administration doesnt delay the plans for any urologic procedure for the kidney stone Review of Systems Review of Systems: All systems reviewed & are unremarkable except as noted in HPI and below (HPI) Constitutional: Constitutional: Reports as per HPI Cardiovascular: Cardiovascular: Reports as per HPI and Reports no additional cardiovascular complaints Gastrointestinal: Gastrointestinal: Reports as per HPI and Reports abdominal pain PMFSH Past Medical History Medical History Diabetes mellitus with neuropathy PAF (paroxysmal atrial fibrillation) Depression Psoriasis Eye hemorrhage bilateral, previously treated with laser CAD (coronary artery disease) PR x2, Stent x3 Diarrhea Colonoscopy refused NSTEMI (non-ST elevated myocardial infarction) Foot ulcer healed Chronic cholecystitis with calculus History of kidney stones Toe ulcer due to DM healed Shy-Drager syndrome Essential (primary) hypertension Mixed hyperlipidemia Ventral hernia without obstruction or gangrene Surgical History Surgical History History of cholecystectomy Hx laparoscopic cholecystectomy 05/11/20 H/O umbilical hernia repair H/O eye surgery History of heart artery stent Family History Family History Father Patient's father is , Onset Age: 34 smoke inhalation-supervisor paper products [facility] 1960 Grandparent Carcinoma of colon Sibling Family history of type 1 diabetes mellitus Mother Diabetes mellitus Sibling No problems noted. Social History Social History Smoking status: Never smoker Second hand tobacco smoke exposure: Yes Alcohol intake: never Drinks per week: 0 Substance use: never Substance use type: does not use Lack of Transportation: No Lack of Food: Never True Current Housing: I Have Housing Concerned About Future Housing: No Difficulty Paying Gas/Electric Bills: No Difficulty Paying for Meds: No Currently Unemployed: No Education: High School Diploma/GED Difficulty w/ Childcare or Family Care: No Living arrangements: with family Occupation/Education: retired Additional occupation/education comments: [employer] Gender identity (if verbalized by the patient): Male Spiritual care concerns: No Meds Home Medications and Allergies Home Medications ?Medication ?Instructions ?Recorded ?Confirmed ?Type aspirin 81 mg tablet,delayed 81 mg PO DAILY 06/12/19 04/17/25 History release mecobalamin (vitamin B12) 1,000 3,000 mcg PO DAILY 06/12/19 04/17/25 History mcg chewable tablet dapagliflozin propanediol 10 mg 10 mg PO DAILY #90 tabs 06/04/24 04/17/25 Rx tablet (Farxiga) metformin 1,000 mg tablet 1,000 mg PO BID #180 tabs 06/04/24 04/17/25 Rx blood sugar diagnostic #100 ea 01/03/25 04/17/25 Rx sitagliptin phosphate 100 mg 100 mg PO DAILY #90 tabs 02/06/25 04/17/25 Rx tablet (Januvia) carvedilol 12.5 mg tablet 12.5 mg PO DAILY 02/27/25 04/17/25 History rosuvastatin 20 mg tablet See Rx Instructions .Route 03/12/25 04/17/25 Rx .COMPLEX #90 tabs Allergies Allergy/AdvReac Type Severity Reaction Status Date / Time No Known Allergies Allergy Verified 04/17/25 13:13 Vital Signs Vital Signs - 24 hr 04/17/25 00:20 04/17/25 02:23 04/17/25 05:08 Temperature 36.4 C L Pulse Rate 83 74 Respiratory Rate 18 18 Blood Pressure 152/89 H 167/80 H Pulse Oximetry 100 99 97 Oxygen Delivery Room Air 04/17/25 05:26 04/17/25 05:30 04/17/25 05:46 Temperature Pulse Rate Respiratory Rate Blood Pressure Pulse Oximetry 100 99 98 Oxygen Delivery 04/17/25 06:00 04/17/25 06:01 04/17/25 06:55 Temperature Pulse Rate Respiratory Rate Blood Pressure 150/79 H Pulse Oximetry 100 98 99 Oxygen Delivery 04/17/25 07:21 04/17/25 08:32 04/17/25 08:49 Temperature Pulse Rate 77 82 Respiratory Rate 20 20 Blood Pressure 138/74 161/94 H Pulse Oximetry 100 95 98 Oxygen Delivery 04/17/25 11:15 04/17/25 13:16 Temperature 36.6 C Pulse Rate 97 82 Respiratory Rate 22 H 20 Blood Pressure 149/90 H 142/96 H Pulse Oximetry 95 98 Oxygen Delivery Exam HENMT: Head: normal to inspection and normocephalic Neck: Neck: normal visual inspection and no JVD Carotids: bruit (no bruits noted) Chest: Other: Diminished breath sounds no rales or rhonchi or wheezing noted Resp: Auscultation: clear to auscultation bilaterally and diminished lung sounds Cardio: Heart sounds: S1 normal heart sound present, S2 normal heart sound present and Murmur heart sound present systolic soft, I/ and at the apex Extrem: Other: NO edema noted bilaterally Results Labs and Meds 04/17/25 07:47 04/17/25 08:57 Lab results: Cardiac Enzymes 04/17/25 04/17/25 Range/Units 08:57 12:12 AST 20 (17-59) U/L Troponin I 0.092 H* 0.335 H* D (0.000-0.034) ng/mL Coagulation 04/17/25 Range/Units 07:47 PT 15.0 H (11.1-14.7) Seconds APTT 26.4 (22.3-36.8) Seconds CBC 04/17/25 Range/Units 07:47 WBC 8.9 (4.5-10.0) K/mm3 RBC 4.82 (4.6-6.20) M/mm3 Hgb 15.0 (14.0-18.0) g/dL Hct 43.8 (42.0-52.0) % Plt Count 217 (150-375) k/mm3 Lymph # (Auto) 0.72 L (0.9-3.2) K/mm3 [place] # (Auto) 0.8 H (0.1-0.6) K/mm3 Eos # (Auto) 0.0 (0-0.3) K/mm3 Baso # (Auto) 0.0 (0.0-0.1) K/mm3 Comprehensive Metabolic Panel 04/17/25 Range/Units 08:57 Sodium 140 (137-145) mmol/L Potassium 4.8 (3.4-5.0) mmol/L Chloride 105 (98-107) mmol/L Carbon Dioxide 28 (22-30) mmol/L BUN 19 (9-20) mg/dL Creatinine 1.17 (0.7-1.3) mg/dL Glucose 176 H (65-110) mg/dL Calcium 9.6 (8.4-10.2) mg/dL AST 20 (17-59) U/L ALT 21 (6-50) U/L Alkaline Phosphatase 84 (38-126) U/L Total Protein 6.3 (6.3-8.2) g/dL Albumin 3.8 (3.5-5.1) g/dL Patient Weight 04/17/25 23:59 Weight 88.6 kg Imaging and Cardiology Cardiac cath: report reviewed EKG results: report reviewed (SR 80 BPM NO ACUTE STT CHANGES TO SUGGEST ACTIVE INFARCTION. LATERAL ST SEG DEPRESSION NOTED)
--- NOTE | 2025-04-17 14:40 | P.CONUR_ITS ---
Assessment and Plan Assessment and plan (1) Left ureteral stone: Code(s): N20.1 - Calculus of ureter Status: Acute Plan 69-year-old male with an 8 mm left UPJ calculus with concomitant elevated troponin/NSTEMI - Appreciate cardiology input. Patient is okay to receive blood thinners from Urology standpoint. Would appreciate cardiology input in regards to whether not patient is cleared from a cardiology standpoint to go to the operating room tomorrow 04/18/2025 for cystoscopy, left retrograde pyelogram, and left ureteral stent placement - Pending cardiac clearance, will plan for cystoscopy, left retrograde pyelogram, and left ureteral stent placement on 04/18/2025 - I reviewed how a ureteral stent is placed, the pertinent risks, benefits, the alternatives, and the fact that will not be treating the stone. I reviewed risks including, but not limited to, bleeding, worsening infection, inability to place the stent and need for nephrostomy tube placement by interventional radiology, damage to the urinary tract side effects, positioning injury, and the temporary nature of the stent were emphasized including irritative voiding symptoms, pain, in addition to anesthetic complications of heart attack, stroke, blood clots, pulmonary embolus, , disability, and other unforeseen complications. The patient voiced understanding and are agreeable proceed all questions answered in layman's terms. The patient understands the need for additional stone surgery in the future when the infection has cleared, and that additional procedure will be needed to remove the stent. -NPO at midnight -2 g of Ancef on-call to the OR -Remainder of management per primary -Urology will follow Urology Consult Note HPI Date Seen: 04/17/25 Requesting Physician: Franklyn Sullivan MD Primary Care Provider: Karan Briceño MD Consult Narrative Narrative: Silvano Trevino is a 69 year old male with PMHx of NSTEMI, CAD s/p cardiac stenting, DM, HTN, HLD who presented to the ER today for left-sided flank pain associated with nausea and vomiting. Workup in the ER demonstrated elevated troponin as well as a CT scan which demonstrated a ureteral stone at the left UPJ (measures 8 mm on my personal measurement in the coronal axis) with associated hydronephrosis. Patient is currently undergoing workup with cardiology team. Review of Systems 2 Review of Systems: Negative except as noted in HPI [facility] Past Medical History Medical History Diabetes mellitus with neuropathy PAF (paroxysmal atrial fibrillation) Depression Psoriasis Eye hemorrhage bilateral, previously treated with laser CAD (coronary artery disease) PR x2, Stent x3 Diarrhea Colonoscopy refused NSTEMI (non-ST elevated myocardial infarction) Foot ulcer healed Chronic cholecystitis with calculus History of kidney stones Toe ulcer due to DM healed Shy-Drager syndrome Essential (primary) hypertension Mixed hyperlipidemia Ventral hernia without obstruction or gangrene Surgical History Surgical History History of cholecystectomy Hx laparoscopic cholecystectomy 05/11/20 H/O umbilical hernia repair H/O eye surgery History of heart artery stent Family History Family History Father Patient's father is , Onset Age: 34 smoke inhalation-independent living specialist [facility] 1960 Grandparent Carcinoma of colon Sibling Family history of type 1 diabetes mellitus Mother Diabetes mellitus Sibling No problems noted. Social History Social History Smoking status: Never smoker Second hand tobacco smoke exposure: Yes Alcohol intake: never Drinks per week: 0 Substance use: never Substance use type: does not use Lack of Transportation: No Lack of Food: Never True Current Housing: I Have Housing Concerned About Future Housing: No Difficulty Paying Gas/Electric Bills: No Difficulty Paying for Meds: No Currently Unemployed: No Education: High School Diploma/GED Difficulty w/ Childcare or Family Care: No Living arrangements: with family Occupation/Education: retired Additional occupation/education comments: [employer] Gender identity (if verbalized by the patient): Male Spiritual care concerns: No Meds Home Medications and Allergies Home Medications ?Medication ?Instructions ?Recorded ?Confirmed ?Type aspirin 81 mg tablet,delayed 81 mg PO DAILY 06/12/19 1 06/18/24 History release mecobalamin (vitamin B12) 1,000 3,000 mcg PO DAILY 04/17/25 History mcg chewable tablet dapagliflozin propanediol 10 mg 10 mg PO DAILY #90 tab s 06/04/24 04/17/25 Rx tablet (Farxiga) metformin 1,000 mg tablet 1,000 mg PO BID #180 tabs 04/17/25 Rx blood sugar diagnostic #100 ea 01/03/25 04/17/25 Rx sitagliptin phosphate 100 mg 100 mg PO DAILY #90 tabs 02/06/25 04/17/25 Rx tablet (Januvia) carvedilol 12.5 mg tablet 12.5 mg PO DAILY 02/27/25 History rosuvastatin 20 mg tablet See Rx Instructions .Route 1 05/12/24 04/17/25 Rx .COMPLEX #90 tabs Allergies Allergy/AdvReac Type Severity Reaction Status Date / Time No Known Allergies Allergy Verified 04/17/25 13:13 Vital Signs Vital Signs - 24 hr 04/17/25 00:20 04/17/25 02:23 04/17/25 05:08 Temperature 36.4 C L Pulse Rate 83 74 Respiratory Rate 18 18 Blood Pressure 152/89 H 167/80 H Pulse Oximetry 100 99 97 Oxygen Delivery Room Air 04/17/25 05:26 04/17/25 05:30 04/17/25 05:46 Temperature Pulse Rate Respiratory Rate Blood Pressure Pulse Oximetry 100 99 98 Oxygen Delivery 04/17/25 06:00 04/17/25 06:01 04/17/25 06:55 Temperature Pulse Rate Respiratory Rate Blood Pressure 150/79 H Pulse Oximetry 100 98 99 Oxygen Delivery 04/17/25 07:21 04/17/25 08:32 04/17/25 08:49 Temperature Pulse Rate 77 82 Respiratory Rate 20 20 Blood Pressure 138/74 161/94 H Pulse Oximetry 100 95 98 Oxygen Delivery 04/17/25 11:15 04/17/25 13:16 Temperature 36.6 C Pulse Rate 97 82 Respiratory Rate 22 H 20 Blood Pressure 149/90 H 142/96 H Pulse Oximetry 95 98 Oxygen Delivery Exam 2 Narrative: General: Alert, no acute distress Head: Normocephalic, atraumatic Eyes: Extraocular movements intact Neck: No JVD, trachea midline Respiratory: Symmetric chest rise, nonlabored breathing on room air CV: Normal rate, adequate peripheral perfusion Abdomen: Soft, nontender, nondistended : Left CVAT Skin: Warm/dry Extremities: No peripheral edema, no cyanosis Neuro: No focal deficits Psych: Answers questions appropriately, appropriate mood Results Labs 04/17/25 07:47 04/17/25 08:57 Labs: Short CBC 04/17/25 Range/Units 07:47 WBC 8.9 (4.5-10.0) K/mm3 Hgb 15.0 (14.0-18.0) g/dL Hct 43.8 (42.0-52.0) % Plt Count 217 (150-375) k/mm3 BMP 04/17/25 08:57 Sodium 140 Potassium 4.8 Chloride 105 Carbon Dioxide 28 BUN 19 Creatinine 1.17 Glucose 176 H Calcium 9.6 Cardiac Enzymes 04/17/25 04/17/25 Range/Units 08:57 12:12 Troponin I 0.092 H* 0.335 H* D (0.000-0.034) ng/mL Liver Function 04/17/25 Range/Units 08:57 Total Bilirubin 0.5 (0.2-1.3) mg/dL AST 20 (17-59) U/L ALT 21 (6-50) U/L Alkaline Phosphatase 84 (38-126) U/L Albumin 3.8 (3.5-5.1) g/dL Urine 04/17/25 Range/Units 11:17 Urine Color Yellow (Yellow) Urine Appearance Clear (Clear) Urine pH 7.0 (5.0-9.0) Ur Specific [place] > 1.045 H (1.001-1.035) Urine Protein Negative (Negative) mg/dL Urine Glucose (UA) 3+ H (Negative) mg/dL
[2025-04-17] MEDS: ROSUVASTATIN 20 MG TABLET PO (16:08)
[2025-04-17] MEDS: TAMSULOSIN HCL 0.4 MG CAPSULE PO (16:08)
[2025-04-17] MEDS: ACETAMINOPHEN 325 MG TABLET 650 MG PO (16:15)
[2025-04-17 16:16] LABS: Troponin I 0.794 ng/mL (0.000-0.034)
[2025-04-17] MEDS: NITROGLYCERIN OINTMENT 1 INCH DOSE TRANSDERM ×2 (17:35→23:33)
[2025-04-17 19:54] LABS: Cholesterol 92 mg/dL (0-200); HDL Direct 37 mg/dL; Triglycerides 103 mg/dL (<150)
[2025-04-18] VITALS (19 sets, daily range): BP systolic 120–145; BP diastolic 64–81; PULSE 71–110; RESP 14–18; TEMP 36.7–37; O2SAT 94–100
--- NOTE | 2025-04-18 | ECHO_ITS ---
Patient Info Name: Silvano Trevino Age: 69 years : 1955 Gender: Male Ht: 68 in Wt: 195 lbs BSA: 2.08 m2 HR: 76 bpm BP: 133 / 71 mmHg Heart Rhythm: Sinus Rhythm Technical Quality: Fair Exam Date: 04/18/2025 9:48 AM Patient Status: I Admit Date: 04/18/2025 Exam Type: CA echo dop color flow w con Complete two-dimensional, color flow and Doppler transthoracic echocardiogram is performed with contrast to opacify the left ventricle and to improve the deliniation of the left ventricle endocardial borders. Staff Referring Physician: Benjie Garcia Supervisor Blasting: Daniela Bhandari Attending Provider: Franklyn Sullivan Contrast/Agitated Saline Contrast/Ag. Saline: Definity Amount: 2.00 ml Administered By: Daniela Bhandari Existing IV Access: Yes IV Access Condition: patent with no signs of infiltration Summary 1. Technically difficult exam, definity contrast utilized to improve endocardial visualization. 2. Normal left ventricular size with overall normal ejection fraction. 3. Hypokinesia of the infero posterior segment. 4. Small amount of tricuspid regurgitation. 5. Normal sinus rhythm. Left Ventricle Left ventricular chamber dimension is normal. Left ventricular systolic function is normal, estimated at 50-55. The left ventricular diastolic function is grade I diastolic dysfunction. Right Ventricle Right ventricular chamber dimension is normal. Left Atria Left atrial chamber dimension is normal. Right Atria Right atrial chamber dimension is normal. Aortic Valve The aortic valve is trileaflet. Pulmonic Valve The pulmonic valve is not well visualized. Mitral Valve The mitral valve has normal leaflets. Tricuspid Valve The tricuspid valve leaflets are normal. There is mild tricuspid valve regurgitation. Pericardium/Pleural The pericardium appears normal. Aorta The aortic root size at the sinus of Valsalva is normal. Left Ventricular Outflow Tract Name Value Normal LVOT 2D LVOT Diameter 2.0 cm LVOT Doppler LVOT Peak Velocity 87 cm/s LVOT Peak Gradient 3 mmHg LVOT Mean Gradient 2 mmHg LVOT VTI 17 cm LVOT VTI/AV VTI Ratio 1.0 LVOT Stroke Volume 54 ml LVOT CO 4.1 l/min LVOT CI 1.9 l/min/m2 Pulmonic Valve Name Value Normal RVOT Doppler RVOT Peak Velocity 62 cm/s RVOT Peak Gradient 2 mmHg PV Doppler PV Peak Velocity 81 cm/s PV Peak Gradient 3 mmHg Mitral Valve Name Value Normal MV Diastolic Function MV E Peak Velocity 68 cm/s MV A Peak Velocity 82 cm/s MV E/A 0.8 MV Decel Time (PW) 192 ms MV Annular TDI MV E/e' (Septal) 12.1 Tricuspid Valve Name Value Normal TV Regurgitation Doppler TR Peak Velocity 262 cm/s TR Peak Gradient 28 mmHg Estimated PAP/RSVP RA Pressure 10 mmHg <=5 PA Systolic Pressure 38 mmHg <36 RV Systolic Pressure 38 mmHg <36 TV Annular TDI TV Lateral Avelina s' Velocity 12.4 cm/s >=9.5 Aortic Valve Name Value Normal AV Doppler AV Peak Velocity 94 cm/s AV Peak Gradient 4 mmHg AV Mean Gradient 2 mmHg AV VTI 17 cm AV Area (Cont Eq VTI) 3.1 cm2 >=3.0 AV Area (Cont Eq Ismael) 3.0 cm2 AV DI (Ismael) 0.93 AV Regurgitation 2D LVOT Area 3.2 cm2 Ventricles Name Value Normal LV Dimensions 2D/MM IVS Diastolic Thickness (2D) 1.3 cm 0.6-1.0 LVID Diastole (2D) 4.6 cm 4.2-5.8 LVIW Diastolic Thickness (2D) 1.3 cm 0.6-1.0 LVID Systole (2D) 3.0 cm 2.5-4.0 LVOT Diameter 2.0 cm LV Mass (2D Cubed) 229.35 g 88.00-224.00 LV Mass Index (2D Cubed) 110 g/m2 49-115 Relative Wall Thickness (2D) 0.55 <=0.42 LV Fractional Shortening/Ejection Fraction 2D/MM LV Fractional Shortening (2D) 35 % 25-43 LV EF (2D Teichholz) 65 % LV Diastolic Volume (4C MOD) 101 ml LV EF (4C MOD) 55 % LV Diastolic Volume (2C MOD) 89 ml LV EF (2C MOD) 58 % LV Diastolic Volume (BP MOD) 95 ml 62-150 LV Diastolic Volume Index (BP MOD) 45 ml/m2 34-74 LV Systolic Volume (BP MOD) 42 ml 21-61 LV Systolic Volume Index (BP MOD) 20 ml/m2 11-31 LV EF (BP MOD) 55 % 52-72 LV Diastolic Length (4C) 8.3 cm LV Systolic Length (4C) 7.8 cm LV Stroke Volume (4C MOD) 56 ml Atria Name Value Normal LA Dimensions LA Volume (4C A-L) 73 ml LA Volume (BP A-L) 63 ml RA Dimensions RA Area (4C) 22.3 cm2 <=18.0 Report Signatures
[2025-04-18 04:14] LABS: Hematocrit 38.8 % (42.0-52.0); Hemoglobin 12.5 g/dL (14.0-18.0); Immature Granulocyte Percent A 0.1 % (0-0.5); Lymphocytes Absolute Auto 1.01 K/mm3 (0.9-3.2); Mean Corpuscular HGB Conc 32.2 g/dl (32-36); Mean Corpuscular Hemoglobin 30.0 pg (26-34); Mean Corpuscular Volume 93.3 fl (80-100); Nucleated Red Blood Cells Absolute Auto 0.000 K/mm3 (0.0-0.012); Nucleated Red Blood Cells Perc 0.0 % (0.0-0.2); Platelet Count Result 197 k/mm3 (150-375); Red Blood Count 4.16 M/mm3 (4.6-6.20); White Blood Count 6.9 K/mm3 (4.5-10.0)
[2025-04-18 04:24] LABS: Hemoglobin A1C 6.1 % (<5.7)
[2025-04-18 04:40] LABS: Anion Gap 9 mmol/L (4-12); Blood Urea Nitrogen 18 mg/dL (9-20); Calcium 9.0 mg/dL (8.4-10.2); Carbon Dioxide 23 mmol/L (22-30); Chloride 108 mmol/L (98-107); Cholesterol 81 mg/dL (0-200); Estimated CRCL calculation 50 ml/min; Estimated Glomerular Filt Rate 59; Glucose 169 mg/dL (65-110); HDL Direct 27 mg/dL; Potassium 4.1 mmol/L (3.4-5.0); Sodium 140 mmol/L (137-145); Triglycerides 148 mg/dL (<150)
[2025-04-18 04:49] LABS: Troponin I 3.150 ng/mL (0.000-0.034)
[2025-04-18] MEDS: NITROGLYCERIN OINTMENT 1 INCH DOSE TRANSDERM ×3 (05:36→17:49)
--- NOTE | 2025-04-18 05:47 | ECG_ITS ---
Test Date: 2025-04-18 05:58:04 Measurements Intervals [place] Rate: 76 P: 17 MT: 136 QRS: -18 QRSD: 106 T: 99 QT: 374 QTc: 421 Interpretive Statements SINUS RHYTHM RSR' IN V1 OR V2, CONSIDER RIGHT VCD OR RVH ST-T WAVE ABNORMALITY IN ANTEROLATERAL LEADS- CONSIDER ISCHEMIA ABNORMAL ECG Compared to ECG 04/17/2025 12:05:07 NO SIGNIFICANT CHANGE Electronically Signed On 04-18-2025 09:26:11 [employer] by Flo Maldonado D.O.
[2025-04-18] MEDS: ceFAZolin 2 GM in SODIUM CHLORIDE 0.9% IV 50 ML 100 ML IVPB (07:52)
[2025-04-18] MEDS: ROSUVASTATIN 20 MG TABLET PO (07:57)
[2025-04-18] MEDS: TAMSULOSIN HCL 0.4 MG CAPSULE PO (07:57)
[2025-04-18] MEDS: CYANOCOBALAMIN 1,000 MCG TABLET 3000 MCG PO (07:57)
--- NOTE | 2025-04-18 08:47 | P.PNUR_ITS ---
Progress Note: A&P Assessment and Plan (1) Left ureteral stone: Code(s): N20.1 - Calculus of ureter Status: Acute Plan 69-year-old male with an 8 mm left UPJ calculus with concomitant elevated troponin/NSTEMI - Planning for cystoscopy, left retrograde pyelogram, possible stone extraction/laser lithotripsy, and left ureteral stent placement this afternoon - Appreciate cardiology input regarding clearance for OR today. Reviewed cardiology consult note - risk of urologic procedure was discussed with patient, may consider echo for additional risk stratification. Continue to monitor for BP and HR control - From urology standpoint, okay to initiate aspirin or other blood thinners as needed - Continue NPO diet Subjective Subjective Date/Time Seen: 04/18/25 08:47 Interval history: Silvano is feeling better today. Still has some left flank pain but has improved. Denies N/V/F/C. Voiding without difficulty and denies dysuria or hematuria. Reports chest pain is persistent. Review of Systems Review of Systems: All systems reviewed & are unremarkable except as noted in HPI and below Exam Narrative: General: Awake, alert, comfortable, no acute distress HEENT: Normocephalic, atraumatic, sclerae anicteric Respiratory: Normal respiratory effort, no accessory muscle use Abdomen: Nondistended, soft, nontender Skin: Normal coloration, warm and dry Neurologic: No focal neuro deficits noted Psychiatric: Appropriate mood and affect, judgment and insight intact Objective Data Vital Signs Vital Signs: Vital Signs - 24 hr 04/17/25 08:49 04/17/25 11:15 04/17/25 13:16 Temperature 97.8 F Pulse Rate 82 97 82 Respiratory Rate 20 22 H 20 Blood Pressure 161/94 H 149/90 H 142/96 H Pulse Oximetry 98 95 98 Oxygen Delivery 04/17/25 14:00 04/17/25 16:00 04/17/25 16:00 Temperature 98.5 F Pulse Rate 84 71 68 Respiratory Rate 18 Blood Pressure 140/69 Pulse Oximetry 96 Oxygen Delivery 04/17/25 18:00 04/17/25 20:00 04/17/25 20:00 Temperature Pulse Rate 72 68 Respiratory Rate Blood Pressure Pulse Oximetry 95 Oxygen Delivery Room Air 04/17/25 20:40 04/17/25 20:43 04/17/25 22:00 Temperature 97.6 F Pulse Rate 77 82 71 Respiratory Rate 15 Blood Pressure 121/64 Pulse Oximetry 95 Oxygen Delivery 04/17/25 23:37 04/18/25 00:00 04/18/25 00:00 Temperature 98.2 F Pulse Rate 77 73 Respiratory Rate 16 Blood Pressure 105/56 L Pulse Oximetry 97 97 Oxygen Delivery Room Air 04/18/25 01:59 04/18/25 04:00 04/18/25 04:00 Temperature Pulse Rate 71 79 Respiratory Rate Blood Pressure Pulse Oximetry 98 Oxygen Delivery Room Air 04/18/25 04:38 04/18/25 06:00 04/18/25 07:57 Temperature 98.0 F Pulse Rate 81 76 84 Respiratory Rate 14 Blood Pressure 133/71 Pulse Oximetry 96 Oxygen Delivery 04/18/25 08:00 Temperature 98.5 F Pulse Rate 79 Respiratory Rate 18 Blood Pressure 120/69 Pulse Oximetry 95 Oxygen Delivery Intake/Output Intake/Output: Intake & Output 04/15/25 04/16/25 04/17/25 04/18/25 23:59 23:59 23:59 23:59 Intake Total 1740 200 Output Total 1150 300 Balance 590 -100 Meds/Results Medications: Active Medications Generic Name Dose Route Start Last Admin Trade Name Freq PRN Reason Stop Dose Admin Acetaminophen 650 mg 04/17/25 11:27 04/17/25 16:15 Acetaminophen 325 Mg Tablet PO 650 mg Q4H PRN Administration Mild Pain (1-3) or Fever Hydrocodone Bitart/Acetaminophen 1 tab 04/17/25 11:27 Hydrocodone/Acetaminophen (*Crx) 5-325 Mg Tablet PO Q4H PRN Pain Rated 4-6 Carvedilol 6.25 mg 04/17/25 21:00 04/18/25 07:57 Carvedilol 6.25 Mg Tablet PO 6.25 mg Q12HR JAUN Administration Cyanocobalamin 3,000 mcg 04/18/25 09:00 04/18/25 07:57 Cyanocobalamin 1,000 Mcg Tablet PO 3,000 mcg DAILY JUAN Administration Dextrose 12.5 gm 04/17/25 14:09 Dextrose 50% 25 Gm/50 Ml Syringe IV PUSH PRN PRN Hypoglycemia Protocol Docusate Sodium 100 mg 04/17/25 17:03 Docusate Sodium 100 Mg Capsule PO Q12H PRN Constipation Glucagon 1 mg 04/17/25 14:09 Glucagon For Inj 1 Mg Vial IM PRN PRN Hypoglycemia Protocol Glucose 15 gm 04/17/25 14:09 Glucose Oral Gel 15 Gm Of Glucse In 37.5 Gm Tube PO PRN PRN Hypoglycemia Protocol Dextrose 1,000 mls @ 100 mls/hr 04/17/25 14:09 Dextrose 5% 1,000 Ml IVPB PRN PRN Hypoglycemia Protocol Cefazolin Sodium 2 gm/ Sodium 50 mls @ 100 mls/hr 04/18/25 08:40 04/18/25 07:52 Chloride IVPB 04/18/25 09:09 100 mls/hr ONCE ONE Administration Insulin Aspart 3 - 6 units 04/17/25 17:00 04/18/25 07:59 Insulin Aspart (*Bkc) 100 Units/Ml SUB-Q Not Given TIDWM JUAN Protocol Morphine Sulfate 4 mg 04/17/25 11:27 Morphine Sulfate (*Crx) 4 Mg/Ml Inj IV PUSH Q2H PRN Pain Rated 7-10 Nitroglycerin 1 inch 04/17/25 18:00 04/18/25 05:36 Nitroglycerin Ointment 1 Inch Dose TRANSDERM 1 inch Q6HR JUAN Administration Ondansetron HCl 4 mg 04/17/25 11:27 04/17/25 12:17 Ondansetron Inj 4 Mg/2 Ml Vial IV PUSH 4 mg Q4H PRN Administration Nausea Perflutren Lipid Microsphere 0 ml 04/17/25 10:52 Perflutren Lipid Microspheres 1.5 Ml Vial Diluted To 10 Ml Total Volume IV PUSH 04/20/25 10:52 ONCE PRN adequate visualization Protocol Polyethylene Glycol 17 gm 04/17/25 17:03 Polyethylene Glycol 3350 17 Gm Powd.Pack PO QAM PRN Constipation Rosuvastatin Calcium 20 mg 04/17/25 14:10 04/18/25 07:57 Rosuvastatin 20 Mg Tablet PO 20 mg DAILY JUAN Administration Sitagliptin Phosphate 100 mg 04/18/25 09:00 04/18/25 07:57 Sitagliptin Phosphate 100 Mg Tablet PO 100 mg DAILY JUAN Administration Tamsulosin HCl 0.4 mg 04/17/25 15:40 04/18/25 07:57 Tamsulosin Hcl 0.4 Mg Capsule PO 0.4 mg QAM JUAN Administration Radiology Results: ITS Impressions Abdomen/Pelvis CT 04/17/25 09:44 IMPRESSION: 1. Left UPJ stone measuring 5-6 mm with mild hydronephrosis. Ribs X-Ray 04/17/25 10:02 IMPRESSION: 1:No acute displaced rib fractures. Chest X-Ray 04/17/25 11:10 IMPRESSION: 1: NO ACUTE CARDIOPULMONARY DISEASE. Labs Labs: Laboratory Results - last 24 hr 04/17/25 04/17/25 04/17/25 08:57 11:17 12:12 WBC RBC Hgb Hct MCV MCH MCHC RDW Plt Count MPV Immature Gran % (Auto) Neut % (Auto) Lymph % (Auto) [place] % (Auto) Eos % (Auto) Baso % (Auto) Lymph # (Auto) [place] # (Auto) Eos # (Auto) Baso # (Auto) Abs Immat Gran (auto) Absolute Neuts (auto) Absolute Nucleated RBC Nucleated RBC % Sodium 140 Potassium 4.8 Chloride 105 Carbon Dioxide 28 Anion Gap 7 BUN 19 Creatinine 1.17 Estim Creat Clear Calc 52 Estimated GFR > 60 Glucose 176 H POC Capillary Glucose Hemoglobin A1c Calcium 9.6 Total Bilirubin 0.5 AST 20 ALT 21 Alkaline Phosphatase 84 Troponin I 0.092 H* 0.335 H* D Total Protein 6.3 Albumin 3.8 Triglycerides Cholesterol LDL Cholesterol Direct HDL Direct Urine Color Yellow Urine Appearance Clear Urine pH 7.0 Ur Specific [place] > 1.045 H Urine Protein Negative Urine Glucose (UA) 3+ H Urine Ketones Trace H Ur Blood (Man) 3+ H Urine Nitrate Negative Urine Bilirubin Negative Urine Urobilinogen 1.0 Leukocyte Esterase Rfl Negative Urine RBC >100 H Urine WBC 0-5 Ur Squamous Epith Cells None seen Urine Bacteria None seen Urine Casts 0-2 04/17/25 04/17/25 04/17/25 15:45 17:22 19:23 WBC RBC Hgb Hct MCV MCH MCHC RDW Plt Count MPV Immature Gran % (Auto) Neut % (Auto) Lymph % (Auto) [place] % (Auto) Eos % (Auto) Baso % (Auto) Lymph # (Auto) [place] # (Auto) Eos # (Auto) Baso # (Auto) Abs Immat Gran (auto) Absolute Neuts (auto) Absolute Nucleated RBC Nucleated RBC % Sodium Potassium Chloride Carbon Dioxide Anion Gap BUN Creatinine Estim Creat Clear Calc Estimated GFR Glucose POC Capillary Glucose 152 H Hemoglobin A1c Calcium Total Bilirubin AST ALT Alkaline Phosphatase Troponin I 0.794 H* D Total Protein Albumin Triglycerides 103 Cholesterol 92 LDL Cholesterol Direct 46 HDL Direct 37 Urine Color Urine Appearance Urine pH Ur Specific [place] Urine Protein Urine Glucose (UA) Urine Ketones Ur Blood (Man) Urine Nitrate Urine Bilirubin Urine Urobilinogen Leukocyte Esterase Rfl Urine RBC Urine WBC Ur Squamous Epith Cells Urine Bacteria Urine Casts 04/17/25 04/18/25 04/18/25 20:43 04:07 07:21 WBC 6.9 RBC 4.16 L Hgb 12.5 L Hct 38.8 L MCV 93.3 MCH 30.0 MCHC 32.2 RDW 12.3 Plt Count 197 MPV 10.2 Immature Gran % (Auto) 0.1 Neut % (Auto) 73.1 Lymph % (Auto) 14.6 L [place] % (Auto) 10.0 H Eos % (Auto) 1.6 Baso % (Auto) 0.6 Lymph # (Auto) 1.01 [place] # (Auto) 0.7 H Eos # (Auto) 0.1 Baso # (Auto) 0.0 Abs Immat Gran (auto) 0.01 Absolute Neuts (auto) 5.0 Absolute Nucleated RBC 0.000 Nucleated RBC % 0.0 Sodium 140 Potassium 4.1 Chloride 108 H Carbon Dioxide 23 Anion Gap 9 BUN 18 Creatinine 1.23 Estim Creat Clear Calc 50 Estimated GFR 59 Glucose 169 H POC Capillary Glucose 150 H 168 H Hemoglobin A1c 6.1 H Calcium 9.0 Total Bilirubin AST ALT Alkaline Phosphatase Troponin I 3.150 H* Total Protein Albumin Triglycerides 148 Cholesterol 81 LDL Cholesterol Direct 37 HDL Direct 27 Urine Color Urine Appearance Urine pH Ur Specific [place] Urine Protein Urine Glucose (UA) Urine Ketones Ur Blood (Man) Urine Nitrate Urine Bilirubin Urine Urobilinogen Leukocyte Esterase Rfl Urine RBC Urine WBC Ur Squamous Epith Cells Urine Bacteria Urine Casts
[2025-04-18] MEDS: HYDROcodone/acetaminophen (*CRX) 5-325 MG TABLET 1 TAB PO ×3 (09:17→19:04)
--- NOTE | 2025-04-18 09:26 | WPDHPUPDATE1 ---
History and Physical Update Update Date/Time: 04/18/25 09:26 History and Physical has been reviewed, including an updated exam of the patient. There are NO changes in the patient's condition. Risks, benefits, and alternatives have been discussed and questions answered. Patient agrees to proceed with procedure.
--- NOTE | 2025-04-18 10:02 | PM.IMPN2 ---
Assessment and Plan Assessment and Plan (1) Non-ST elevated myocardial infarction: Code(s): I21.4 - Non-ST elevation (NSTEMI) myocardial infarction Status: Acute Assessment and Plan: Patient presented here with left lateral rib pain that is constant, sharp, stabbing that started 04/16/2025 around 10:30 p.m.. He has a past medical history significant for coronary artery disease, heart attack x2 and coronary stent x3. Currently follows with Dr. Maldonado for his cardiac care. His initial EKG showed ST depression. Initial troponin 0.092, repeat 0.335. Cardiology has been consulted, Dr. Horowitz, see note for full details. Further assessment, the patient has fixed coronary artery disease and should be managed medically. Recommended nitro paste, beta-jalen, statin. If BP remains elevated, may need additional medication for afterload reduction via ANTONINA/ARB/hydralazine. He has been cleared further perspective, however would be still be at an elevated risk due to his previously known cardiac history. Would recommend obtaining echo preop. But no current plans for cardiac catheterization or intervention. Would recommend starting aspirin after Urology proceeds with any clinically indicated procedures. Hesitant to start heparin as the patient has a history of bleeding in his eyes. -bedside RN related cardiac recommendations to the urologist, they are okay with proceeding with aspirin at this time and have tentative plans for procedure tomorrow -start nitro paste 1 in q.6H -continue beta-jalen, statin - Moderately elevated BP, if remains elevated per cardiology add ANTONINA/ARB/hydralazine -NSTEMI to be managed medically due to history of fixed CAD -hesitant on heparin given bilateral hemorrhage to the eyes -trend troponin and up trended to 3.1 04/18/2025. Discussed with Cardiology. Echocardiogram pending. Will start aspirin 81 mg now and daily. Nitropaste q.6 applied as ordered -telemetry monitoring (2) Obstruction of left ureteropelvic junction (UPJ) due to stone: Code(s): N20.1 - Calculus of ureter Status: Acute Assessment and Plan: Upon initial evaluation on 04/17, the patient CT of the abdomen/pelvis showed a left UPJ measuring 5-6 mm with mild hydronephrosis. He has been cleared via Cardiology and is at an elevated risk due to his previously known cardiac history, see their note. Has been discussed with the urologist, they are okay with starting aspirin. Tentative plan for procedure tomorrow on 04/18. NPO at midnight. -tentative procedure on 04/18 for a cystoscopy, left retrograde pyelogram, l and left ureteral stent placement -NPO midnight -2G of Ancef per Urology recommendations -start Flomax -IV fluids: 125 mL/hour x2 L (3) PAF (paroxysmal atrial fibrillation): Code(s): I48.0 - Paroxysmal atrial fibrillation Status: Acute Assessment and Plan: On Coreg 6.25 mg daily at home, cardiology recommended increasing to b.i.d.. Not great candidate for OAC due to previous hemorrhage to his bilateral eyes. Will continue aspirin. -increasing Coreg from 6.25 mg daily to 6.25 mg b.i.d. 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 Continue Januvia. - correct regimen ordered - moderate dose TIDWM, based off BMI - A1C 7.9% June 2023, Repeat A1c 6.1 04/18/2025 (5) Mixed hyperlipidemia: Code(s): E78.2 - Mixed hyperlipidemia Status: Acute Assessment and Plan: -update lipid panel: LDL 37 HDL low at 27 -continue rosuvastatin (6) Essential (primary) hypertension: Code(s): I10 - Essential (primary) hypertension Status: Acute Assessment and Plan: - Coreg increased from 6.25 mg daily to b.i.d., was previously prescribed 2.5 mg daily but was having issues at this does show was taking a half tablet daily. - monitor Plan Diet: Heart healthy, NPO for planned procedure today GI Prophylaxis: N/a DVT Prophylaxis: SCDs Code Status: Full Code. However had extensive conversation with the patient and his . If he required CPR, he would only like 1 dose of epinephrine and if he is not resuscitated after this does he would like all efforts ceased. Patient does not want to be intubated for a prolonged duration, his is aware of his wishes, but would be okay with intubation if it were temporizing. Subjective Date/time seen: 04/18/25 10:02 Interval history: Chart reviewed. Patient presented with left flank pain nausea vomiting. No chest pain reported by the patient. at bedside and discussed with them. Discussed with Cardiology as well with regard to new troponin finding. Discussed with urology Review of Systems Review of Systems: All systems reviewed & are unremarkable except as noted in HPI and below Exam Narrative: GENERAL: Chronically ill-appearing, well-nourished, and in no acute distress. HEAD: Normocephalic, atraumatic. ENT: Mucous membranes moist. CHEST: Clear to auscultation. No respiratory distress. HEART: Regular rate and rhythm. Normal peripheral pulses. ABDOMEN: Soft, tender palpation left upper and left lower quadrant, nondistended. EXTREMITIES: Normal range of motion. No edema. SKIN: Warm, dry, no rash. NEURO: Alert and oriented x3. PSYCH: Normal mood and affect. Objective Data Vital Signs Vital Signs: Vital Signs - 24 hr 04/17/25 11:15 04/17/25 13:16 04/17/25 14:00 Temperature 97.8 F Pulse Rate 97 82 84 Respiratory Rate 22 H 20 Blood Pressure 149/90 H 142/96 H Pulse Oximetry 95 98 Oxygen Delivery 04/17/25 16:00 04/17/25 16:00 04/17/25 18:00 Temperature 98.5 F Pulse Rate 71 68 72 Respiratory Rate 18 Blood Pressure 140/69 Pulse Oximetry 96 Oxygen Delivery 04/17/25 20:00 04/17/25 20:00 04/17/25 20:40 Temperature 97.6 F Pulse Rate 68 77 Respiratory Rate 15 Blood Pressure 121/64 Pulse Oximetry 95 95 Oxygen Delivery Room Air 04/17/25 20:43 04/17/25 22:00 04/17/25 23:37 Temperature 98.2 F Pulse Rate 82 71 77 Respiratory Rate 16 Blood Pressure 105/56 L Pulse Oximetry 97 Oxygen Delivery 04/18/25 00:00 04/18/25 00:00 04/18/25 01:59 Temperature Pulse Rate 73 71 Respiratory Rate Blood Pressure Pulse Oximetry 97 Oxygen Delivery Room Air 04/18/25 04:00 04/18/25 04:00 04/18/25 04:38 Temperature 98.0 F Pulse Rate 79 81 Respiratory Rate 14 Blood Pressure 133/71 Pulse Oximetry 98 96 Oxygen Delivery Room Air 04/18/25 06:00 04/18/25 07:57 04/18/25 08:00 Temperature 98.5 F Pulse Rate 76 84 79 Respiratory Rate 18 Blood Pressure 120/69 Pulse Oximetry 95 Oxygen Delivery Intake/Output Intake/Output: Intake & Output 04/15/25 04/16/25 04/17/25 04/18/25 23:59 23:59 23:59 23:59 Intake Total 1740 200 Output Total 1150 300 Balance 590 -100 Meds/Results Medications: Active Medications Generic Name Dose Route Start Last Admin Trade Name Freq PRN Reason Stop Dose Admin Acetaminophen 650 mg 04/17/25 11:27 04/17/25 16:15 Acetaminophen 325 Mg Tablet PO 650 mg Q4H PRN Administration Mild Pain (1-3) or Fever Hydrocodone Bitart/Acetaminophen 1 tab 04/17/25 11:27 04/18/25 09:17 Hydrocodone/Acetaminophen (*Crx) 5-325 Mg Tablet PO 1 tab Q4H PRN Administration Pain Rated 4-6 Carvedilol 6.25 mg 04/17/25 21:00 04/18/25 07:57 Carvedilol 6.25 Mg Tablet PO 6.25 mg Q12HR JUAN Administration Cyanocobalamin 3,000 mcg 04/18/25 09:00 04/18/25 07:57 Cyanocobalamin 1,000 Mcg Tablet PO 3,000 mcg DAILY JUAN Administration Dextrose 12.5 gm 04/17/25 14:09 Dextrose 50% 25 Gm/50 Ml Syringe IV PUSH PRN PRN Hypoglycemia Protocol Docusate Sodium 100 mg 04/17/25 17:03 Docusate Sodium 100 Mg Capsule PO Q12H PRN Constipation Glucagon 1 mg 04/17/25 14:09 Glucagon For Inj 1 Mg Vial IM PRN PRN Hypoglycemia Protocol Glucose 15 gm 04/17/25 14:09 Glucose Oral Gel 15 Gm Of Glucse In 37.5 Gm Tube PO PRN PRN Hypoglycemia Protocol Dextrose 1,000 mls @ 100 mls/hr 04/17/25 14:09 Dextrose 5% 1,000 Ml IVPB PRN PRN Hypoglycemia Protocol Insulin Aspart 3 - 6 units 12/25/25 17:00 04/18/25 07:59 Insulin Aspart (*Bkc) 100 Units/Ml SUB-Q Not Given TIDWM JUAN Protocol Morphine Sulfate 4 mg 04/17/25 11:27 Morphine Sulfate (*Crx) 4 Mg/Ml Inj IV PUSH Q2H PRN Pain Rated 7-10 Nitroglycerin 1 inch 04/17/25 18:00 04/18/25 05:36 Nitroglycerin Ointment 1 Inch Dose TRANSDERM 1 inch Q6HR JUAN Administration Ondansetron HCl 4 mg 04/17/25 11:27 04/17/25 12:17 Ondansetron Inj 4 Mg/2 Ml Vial IV PUSH 4 mg Q4H PRN Administration Nausea Perflutren Lipid Microsphere 0 ml 04/17/25 10:52 Perflutren Lipid Microspheres 1.5 Ml Vial Diluted To 10 Ml Total Volume IV PUSH 04/20/25 10:52 ONCE PRN adequate visualization Protocol Polyethylene Glycol 17 gm 04/17/25 17:03 Polyethylene Glycol 3350 17 Gm Powd.Pack PO QAM PRN Constipation Rosuvastatin Calcium 20 mg 04/17/25 14:10 04/18/25 07:57 Rosuvastatin 20 Mg Tablet PO 20 mg DAILY JUAN Administration Sitagliptin Phosphate 100 mg 04/18/25 09:00 04/18/25 07:57 Sitagliptin Phosphate 100 Mg Tablet PO 100 mg DAILY JUAN Administration Tamsulosin HCl 0.4 mg 04/17/25 15:40 04/18/25 07:57 Tamsulosin Hcl 0.4 Mg Capsule PO 0.4 mg QAM JUAN Administration Radiology Results: ITS Impressions Abdomen/Pelvis CT 04/17/25 09:44 IMPRESSION: 1. Left UPJ stone measuring 5-6 mm with mild hydronephrosis. Ribs X-Ray 04/17/25 10:02 IMPRESSION: 1:No acute displaced rib fractures. Chest X-Ray 04/17/25 11:10 IMPRESSION: 1: NO ACUTE CARDIOPULMONARY DISEASE. Labs Labs: Laboratory Results - last 24 hr 04/17/25 04/17/25 04/17/25 11:17 12:12 15:45 WBC RBC Hgb Hct MCV MCH MCHC RDW Plt Count MPV Immature Gran % (Auto) Neut % (Auto) Lymph % (Auto) [place] % (Auto) Eos % (Auto) Baso % (Auto) Lymph # (Auto) [place] # (Auto) Eos # (Auto) Baso # (Auto) Abs Immat Gran (auto) Absolute Neuts (auto) Absolute Nucleated RBC Nucleated RBC % Sodium Potassium Chloride Carbon Dioxide Anion Gap BUN Creatinine Estim Creat Clear Calc Estimated GFR Glucose POC Capillary Glucose Hemoglobin A1c Calcium Troponin I 0.335 H* D 0.794 H* D Triglycerides Cholesterol LDL Cholesterol Direct HDL Direct Urine Color Yellow Urine Appearance Clear Urine pH 7.0 Ur Specific [place] > 1.045 H Urine Protein Negative Urine Glucose (UA) 3+ H Urine Ketones Trace H Ur Blood (Man) 3+ H Urine Nitrate Negative Urine Bilirubin Negative Urine Urobilinogen 1.0 Leukocyte Esterase Rfl Negative Urine RBC >100 H Urine WBC 0-5 Ur Squamous Epith Cells None seen Urine Bacteria None seen Urine Casts 0-2 04/17/25 04/17/25 04/17/25 17:22 19:23 20:43 WBC RBC Hgb Hct MCV MCH MCHC RDW Plt Count MPV Immature Gran % (Auto) Neut % (Auto) Lymph % (Auto) [place] % (Auto) Eos % (Auto) Baso % (Auto) Lymph # (Auto) [place] # (Auto) Eos # (Auto) Baso # (Auto) Abs Immat Gran (auto) Absolute Neuts (auto) Absolute Nucleated RBC Nucleated RBC % Sodium Potassium Chloride Carbon Dioxide Anion Gap BUN Creatinine Estim Creat Clear Calc Estimated GFR Glucose POC Capillary Glucose 152 H 150 H Hemoglobin A1c Calcium Troponin I Triglycerides 103 Cholesterol 92 LDL Cholesterol Direct 46 HDL Direct 37 Urine Color Urine Appearance Urine pH Ur Specific [place] Urine Protein Urine Glucose (UA) Urine Ketones Ur Blood (Man) Urine Nitrate Urine Bilirubin Urine Urobilinogen Leukocyte Esterase Rfl Urine RBC Urine WBC Ur Squamous Epith Cells Urine Bacteria Urine Casts 04/18/25 04/18/25 04:07 07:21 WBC 6.9 RBC 4.16 L Hgb 12.5 L Hct 38.8 L MCV 93.3 MCH 30.0 MCHC 32.2 RDW 12.3 Plt Count 197 MPV 10.2 Immature Gran % (Auto) 0.1 Neut % (Auto) 73.1 Lymph % (Auto) 14.6 L [place] % (Auto) 10.0 H Eos % (Auto) 1.6 Baso % (Auto) 0.6 Lymph # (Auto) 1.01 [place] # (Auto) 0.7 H Eos # (Auto) 0.1 Baso # (Auto) 0.0 Abs Immat Gran (auto) 0.01 Absolute Neuts (auto) 5.0 Absolute Nucleated RBC 0.000 Nucleated RBC % 0.0 Sodium 140 Potassium 4.1 Chloride 108 H Carbon Dioxide 23 Anion Gap 9 BUN 18 Creatinine 1.23 Estim Creat Clear Calc 50 Estimated GFR 59 Glucose 169 H POC Capillary Glucose 168 H Hemoglobin A1c 6.1 H Calcium 9.0 Troponin I 3.150 H* Triglycerides 148 Cholesterol 81 LDL Cholesterol Direct 37 HDL Direct 27 Urine Color Urine Appearance Urine pH Ur Specific [place] Urine Protein Urine Glucose (UA) Urine Ketones Ur Blood (Man) Urine Nitrate Urine Bilirubin Urine Urobilinogen Leukocyte Esterase Rfl Urine RBC Urine WBC Ur Squamous Epith Cells Urine Bacteria Urine Casts
[2025-04-18] MEDS: PERFLUTREN LIPID MICROSPHERES 1.5 ML VIAL DILUTED TO 10 ML TOTAL VOLUME IV PUSH (10:10)
[2025-04-18] MEDS: ASPIRIN 81 MG ENTERIC TABLET PO (11:11)
--- NOTE | 2025-04-18 11:47 | IVDEFINITY ---
Prior to administration of IV Definity the patient was educated on the risks and benefits of the imaging enhancing agent including potential adverse side effects. The patient verbalized understanding. Allergies were verified. No exclusion criteria were identified and at least one of the following inclusion criteria were met: 1) physician request, 2) patient technically difficult to image (per the [place] [employer] guidelines of two or more segments not discernable within the apical view), or 3) questionable left ventricular function. ?
--- NOTE | 2025-04-18 18:19 | P.PNCA_ITS ---
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 NO CP OR SOB OR OTHER ANGINAL EQUIVALENT. ADDED NITROPASTE 1ACW Q6 CONTINUED BB STATIN AND MAY NEED ADDITIONAL BP MED FOR AFTERLOAD REDUCTION ANTONINA/ARB/HYDRALAZINE OK TO INCREASE COREG TO 6.25 Q8 IF NEEDED TO MAINTAIN BETTER BP CONTROL. UROLOGY APPROVED ASA NSTEMI- SUSPECT RELATED TO THE OCCLUDED VESSELS NOTED IN THE CATH REPORT FOR MEDICAL MANAGEMENT AND OK FOR NITRATES AND BB AND STATIN AND AFTERLOAD REDUCTION ULTIMATELY BP/HR CONTROL. DISCUSSED WITH PT HIS HX OF BLEEDING IN THE EYE LEADS TO HESITATION FOR INITIATING HEPARIN NOTED -D/W HOSPITALIST THIS EVENING RECOMMEND TO OBTAIN FURTHER TROPONINS AND IF THERE IS CONTINUED TREND UPWARD MAY PROCEED WITH CATH FOR PREOP CONTINUE WITH BB/ASA/STATIN/NITROPASTE. CAN ADVANCE BB TO 6.25MG Q8 TO INCREASE MEDRX HX OF AFIB- CURRENTLY NOT IN AFIB AND EKG SHOWED NSR NOT ON OAC. CONTINUE WITH BB FOR MANAGEMENT AND HAS BEEN ON ASA 81 HE HAS ELEVATED CHADS SCORE KIDNEY STONE- ASA WAS OK WITH UROLOGY. POTENTIAL PLAN FOR URETERAL STENT REVIEWED WITH PT ABOUT MANAGEMENT OPTIONS HE PREFERS TO STAY HERE AT [place] FOR ALL MANAGEMENT OPTIONS PREOP- HE IS AN ELEVATED RISK FOR MACE DUE TO MULTIPLE RF FOR CAD DM/HTN/CHOL/PRIOR [place] AND KNOWN HX OF CAD/ AND LV DYSFXN. RECOMMENDATIONS NOTED IN HPI. ECHO WAS DONE AND LVEF WAS ESTIMATED AT 55% NOTED ABOVE AND WALL MOTION ABN CORRELATES WITH THE FINDING ON THE CATH REPORT FROM 12/2022 DVT PROPH- RECOMMENDED DVT PROPHYLAXIS IN THE INTERIM FOR HIS HOSPITALIZATION OK FOR THOMX FROM [facility] Subjective Date/time seen: 04/18/25 18:19 Interval history: spoke with pt regarding events from today and the rise in the troponin that was noted he felt pain earlier today around 12n in his lower back reviewed with the urologist earlier today on the phone Echo was noted on the chart reported earlier today by Dr Mejia whom I spoke with to kindly read the study to its available for preop It demonstrated preserved LV fxn and inferior posterior wall motion abn as noted on the prior cath that was done As noted in my original consult I reviewed with him the issues with the extensive nature of the CAD and the prior hx of bleeding in the eyes and his multiple risk factors and the need for urologic procedure in the face of rising troponins and NSTEMI. At present the safest thing to do is to initiate nitropaste 1 acw Q6 as his BP will tolerate and to continue home dose of the BB coreg 6.25mg bid (he has been taking 12.5mg QD as the pill is too small for him to cut). Pt himself says clearly he has no CP and no SOB to suggest anginal equivalent. 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 Discussed with hospitalist this evening and anesthesia at [facility]. Exam Cardio: Rhythm: regular rhythm Heart sounds: S1 normal heart sound present and S2 normal heart sound present Extrem: General: no pedal edema and no calf tenderness Objective Data Vital Signs Vital Signs: Vital Signs - 24 hr 04/17/25 20:00 04/17/25 20:00 04/17/25 20:40 Temperature 36.4 C Pulse Rate 68 77 Respiratory Rate 15 Blood Pressure 121/64 Pulse Oximetry 95 95 Oxygen Delivery Room Air 04/17/25 20:43 04/17/25 22:00 04/17/25 23:37 Temperature 36.8 C Pulse Rate 82 71 77 Respiratory Rate 16 Blood Pressure 105/56 L Pulse Oximetry 97 Oxygen Delivery 04/18/25 00:00 04/18/25 00:00 04/18/25 01:59 Temperature Pulse Rate 73 71 Respiratory Rate Blood Pressure Pulse Oximetry 97 Oxygen Delivery Room Air 04/18/25 04:00 04/18/25 04:00 04/18/25 04:38 Temperature 36.7 C Pulse Rate 79 81 Respiratory Rate 14 Blood Pressure 133/71 Pulse Oximetry 98 96 Oxygen Delivery Room Air 04/18/25 06:00 04/18/25 07:57 04/18/25 08:00 Temperature 36.9 C Pulse Rate 76 84 79 Respiratory Rate 18 Blood Pressure 120/69 Pulse Oximetry 95 Oxygen Delivery 04/18/25 08:00 04/18/25 10:00 04/18/25 11:58 Temperature 37.0 C Pulse Rate 76 81 79 Respiratory Rate 16 Blood Pressure 133/64 Pulse Oximetry 94 Oxygen Delivery 04/18/25 12:00 04/18/25 14:00 04/18/25 16:00 Temperature 36.9 C Pulse Rate 79 77 80 Respiratory Rate 18 Blood Pressure 130/65 Pulse Oximetry 95 Oxygen Delivery 04/18/25 16:00 Temperature Pulse Rate 78 Respiratory Rate Blood Pressure Pulse Oximetry Oxygen Delivery Intake/Output Intake/Output: Intake & Output 04/15/25 04/16/25 04/17/25 04/18/25 23:59 23:59 23:59 23:59 Intake Total 1740 740 Output Total 1150 300 Balance 590 440 Meds/Results Medications: Active Medications Generic Name Dose Route Start Last Admin Trade Name Freq PRN Reason Stop Dose Admin Acetaminophen 650 mg 04/17/25 11:27 04/17/25 16:15 Acetaminophen 325 Mg Tablet PO 650 mg Q4H PRN Administration Mild Pain (1-3) or Fever Hydrocodone Bitart/Acetaminophen 1 tab 04/17/25 11:27 04/18/25 15:07 Hydrocodone/Acetaminophen (*Crx) 5-325 Mg Tablet PO 1 tab Q4H PRN Administration Pain Rated 4-6 Aspirin 81 mg 04/18/25 10:45 04/18/25 11:11 Aspirin 81 Mg Enteric Tablet PO 81 mg QAM JUAN Administration Carvedilol 6.25 mg 04/17/25 21:00 04/18/25 07:57 Carvedilol 6.25 Mg Tablet PO 6.25 mg Q12HR JUAN Administration Cyanocobalamin 3,000 mcg 04/18/25 09:00 04/18/25 07:57 Cyanocobalamin 1,000 Mcg Tablet PO 3,000 mcg DAILY JUAN Administration Dextrose 12.5 gm 04/17/25 14:09 Dextrose 50% 25 Gm/50 Ml Syringe IV PUSH PRN PRN Hypoglycemia Protocol Docusate Sodium 100 mg 04/17/25 17:03 Docusate Sodium 100 Mg Capsule PO Q12H PRN Constipation Glucagon 1 mg 04/17/25 14:09 Glucagon For Inj 1 Mg Vial IM PRN PRN Hypoglycemia Protocol Glucose 15 gm 04/17/25 14:09 Glucose Oral Gel 15 Gm Of Glucse In 37.5 Gm Tube PO PRN PRN Hypoglycemia Protocol Dextrose 1,000 mls @ 100 mls/hr 04/17/25 14:09 Dextrose 5% 1,000 Ml IVPB PRN PRN Hypoglycemia Protocol Insulin Aspart 3 - 6 units 04/17/25 17:00 04/18/25 17:06 Insulin Aspart (*Bkc) 100 Units/Ml SUB-Q Not Given TIDWM JUAN Protocol Morphine Sulfate 4 mg 04/17/25 11:27 Morphine Sulfate (*Crx) 4 Mg/Ml Inj IV PUSH Q2H PRN Pain Rated 7-10 Nitroglycerin 1 inch 04/17/25 18:00 04/18/25 17:49 Nitroglycerin Ointment 1 Inch Dose TRANSDERM 1 inch Q6HR JUAN Administration Ondansetron HCl 4 mg 04/17/25 11:27 04/17/25 12:17 Ondansetron Inj 4 Mg/2 Ml Vial IV PUSH 4 mg Q4H PRN Administration Nausea Polyethylene Glycol 17 gm 04/17/25 17:03 Polyethylene Glycol 3350 17 Gm Powd.Pack PO QAM PRN Constipation Rosuvastatin Calcium 20 mg 04/17/25 14:10 04/18/25 07:57 Rosuvastatin 20 Mg Tablet PO 20 mg DAILY JUAN Administration Sitagliptin Phosphate 100 mg 04/18/25 09:00 04/18/25 07:57 Sitagliptin Phosphate 100 Mg Tablet PO 100 mg DAILY JUAN Administration Tamsulosin HCl 0.4 mg 04/17/25 15:40 04/18/25 07:57 Tamsulosin Hcl 0.4 Mg Capsule PO 0.4 mg QAM JUAN Administration Radiology Results: ITS Impressions Abdomen/Pelvis CT 04/17/25 09:44 IMPRESSION: 1. Left UPJ stone measuring 5-6 mm with mild hydronephrosis. Ribs X-Ray 04/17/25 10:02 IMPRESSION: 1:No acute displaced rib fractures. Chest X-Ray 04/17/25 11:10 IMPRESSION: 1: NO ACUTE CARDIOPULMONARY DISEASE. Labs Labs: Laboratory Results - last 24 hr 04/17/25 04/17/25 04/18/25 19:23 20:43 04:07 WBC 6.9 RBC 4.16 L Hgb 12.5 L Hct 38.8 L MCV 93.3 MCH 30.0 MCHC 32.2 RDW 12.3 Plt Count 197 MPV 10.2 Immature Gran % (Auto) 0.1 Neut % (Auto) 73.1 Lymph % (Auto) 14.6 L [place] % (Auto) 10.0 H Eos % (Auto) 1.6 Baso % (Auto) 0.6 Lymph # (Auto) 1.01 [place] # (Auto) 0.7 H Eos # (Auto) 0.1 Baso # (Auto) 0.0 Abs Immat Gran (auto) 0.01 Absolute Neuts (auto) 5.0 Absolute Nucleated RBC 0.000 Nucleated RBC % 0.0 Sodium 140 Potassium 4.1 Chloride 108 H Carbon Dioxide 23 Anion Gap 9 BUN 18 Creatinine 1.23 Estim Creat Clear Calc 50 Estimated GFR 59 Glucose 169 H POC Capillary Glucose 150 H Hemoglobin A1c 6.1 H Calcium 9.0 Troponin I 3.150 H* Triglycerides 103 148 Cholesterol 92 81 LDL Cholesterol Direct 46 37 HDL Direct 37 27 04/18/25 04/18/25 04/18/25 07:21 11:28 15:54 WBC RBC Hgb Hct MCV MCH MCHC RDW Plt Count MPV Immature Gran % (Auto) Neut % (Auto) Lymph % (Auto) [place] % (Auto) Eos % (Auto) Baso % (Auto) Lymph # (Auto) [place] # (Auto) Eos # (Auto) Baso # (Auto) Abs Immat Gran (auto) Absolute Neuts (auto) Absolute Nucleated RBC Nucleated RBC % Sodium Potassium Chloride Carbon Dioxide Anion Gap BUN Creatinine Estim Creat Clear Calc Estimated GFR Glucose POC Capillary Glucose 168 H 156 H 194 H Hemoglobin A1c Calcium Troponin I Triglycerides Cholesterol LDL Cholesterol Direct HDL Direct Imaging Radiologist's impression: Summary 1. Technically difficult exam, definity contrast utilized to improve endocardial visualization. 2. Normal left ventricular size with overall normal ejection fraction. 3. Hypokinesia of the infero posterior segment. 4. Small amount of tricuspid regurgitation. 5. Normal sinus rhythm. Left Ventricle Left ventricular chamber dimension is normal. Left ventricular systolic function is normal, estimated at 50-55. The left ventricular diastolic function is grade I diastolic dysfunction.
--- NOTE | 2025-04-18 18:47 | ECG_ITS ---
Test Date: 2025-04-18 18:50:53 Measurements Intervals [place] Rate: 85 P: 9 MO: 133 QRS: -31 QRSD: 108 T: 78 QT: 370 QTc: 440 Interpretive Statements SINUS RHYTHM LEFT AXIS DEVIATION MINIMAL Q WAVES- HIGH LATERAL LEADS ST-T WAVE ABNORMALITY IN ANTEROLATERAL LEADS- CONSIDER ISCHEMIA BASELINE ARTIFACT- I, II, III, AVR, AVL ,AVF ABNORMAL ECG Compared to ECG 04/18/2025 05:58:04 NO SIGNIFICANT CHANGE Electronically Signed On 04-18-2025 20:05:51 [employer] by Flo Maldonado D.O.
[2025-04-18] MEDS: NITROGLYCERIN SL 0.4 MG TABLET SUBLINGUAL (18:58)
[2025-04-18] MEDS: MORPHINE SULFATE (*CRX) 4 MG/ML INJ IV PUSH (20:11)
--- NOTE | 2025-04-18 20:12 | PM.EVENT ---
Event Note Event Note Event Note: Spoke with cigarette making machine catcher, Dr. Horowitz. He suspects the patient's uptrend in troponins is related to occluded vessels that were previously noted on a cardiac catheterization that was done in 2022 which for medically managed. Same area on most recent echo noted to have hypokinesis. However patient reported recurrence of left-sided chest pain that was 15/10 this evening. EKG was obtained and largely unchanged from previous per the cigarette making machine catcher's assessment, reviewed EKG and agree with interpretation. He recommended obtaining further troponins. If troponin continues to up trend significantly, may proceed with cardiac catheterization for preop clearance. In interim recommended continuing beta-jalen, aspirin, statin, nitro paste. Could consider advancing beta-jalen to 6.25 mg Q8H. After the reported chest pain, he also recommended trialing sublingual nitro which was given had no effect on the patient's pain. Patient was then given [place] which drastically improved his pain. Based off the cigarette making machine catcher recommendations, troponin x3 ordered. Repeat EKG in a.m. ordered. Further plan of care based off of these results. Greater than 45 minutes spent discussing patient's plan of care with consultants.
--- NOTE | 2025-04-18 20:19 | ECG_ITS ---
Test Date: 2025-04-19 07:11:13 Measurements Intervals [place] Rate: 89 P: 12 WA: 140 QRS: -25 QRSD: 110 T: 77 QT: 355 QTc: 433 Interpretive Statements SINUS RHYTHM MINIMAL Q WAVES- HIGH LATERAL LEADS ST-T WAVE ABNORMALITY IN ANTEROLATERAL LEADS- CONSIDER ISCHEMIA BASELINE ARTIFACT- V6 ABNORMAL ECG Compared to ECG 04/18/2025 18:50:53 NO SIGNIFICANT CHANGE Electronically Signed On 04-19-2025 09:21:39 INTELLIGENCE GROUP SUPERVISOR by Flo Maldonado D.O.
[2025-04-18] MEDS: ONDANSETRON INJ 4 MG/2 ML VIAL IV PUSH (20:25)
[2025-04-18 21:57] LABS: Troponin I 2.350 ng/mL (0.000-0.034)
[2025-04-19] VITALS (29 sets, daily range): BP systolic 108–134; BP diastolic 60–95; PULSE 62–98; RESP 12–20; TEMP 36–37.2; O2SAT 94–100
[2025-04-19] MEDS: fentaNYL CITRATE INJ (*CRX) 100 MCG/2 ML VIAL 25 MCG IV PUSH (00:32)
[2025-04-19] MEDS: NITROGLYCERIN OINTMENT 1 INCH DOSE TRANSDERM ×3 (00:34→12:48)
[2025-04-19 01:22] LABS: Troponin I 1.850 ng/mL (0.000-0.034)
[2025-04-19] MEDS: MORPHINE SULFATE (*CRX) 4 MG/ML INJ IV PUSH ×2 (02:01→06:00)
[2025-04-19] MEDS: ONDANSETRON INJ 4 MG/2 ML VIAL IV PUSH ×2 (02:03→06:00)
[2025-04-19 03:36] LABS: Hematocrit 42.5 % (42.0-52.0); Hemoglobin 13.7 g/dL (14.0-18.0); Mean Corpuscular HGB Conc 32.2 g/dl (32-36); Mean Corpuscular Hemoglobin 30.6 pg (26-34); Mean Corpuscular Volume 95.1 fl (80-100); Platelet Count Result 211 k/mm3 (150-375); Red Blood Count 4.47 M/mm3 (4.6-6.20); White Blood Count 10.4 K/mm3 (4.5-10.0)
[2025-04-19 03:59] LABS: Burr Cells 1+; Lymphocytes Absolute Manual 0.83 K/mm3 (1.1-4.5); Lymphocytes Percent Manual 8.0 % (18-44); Monocytes Absolute Manual 0.72 K/mm3 (0.1-0.90); Monocytes Percent Manual 7 % (3-9); Neutrophils Percent Manual 85 % (46-73); Schistocytes None Seen; Total Cells Counted 100
[2025-04-19 04:01] LABS: Alanine Aminotransferase 18 U/L (6-50); Albumin Level 3.9 g/dL (3.5-5.1); Alkaline Phosphatase 79 U/L (38-126); Anion Gap 10 mmol/L (4-12); Aspartate Amino Transferase 30 U/L (17-59); Bilirubin,Total 1.0 mg/dL (0.2-1.3); Blood Urea Nitrogen 23 mg/dL (9-20); Calcium 9.2 mg/dL (8.4-10.2); Carbon Dioxide 24 mmol/L (22-30); Chloride 106 mmol/L (98-107); Estimated CRCL calculation 39 ml/min; Estimated Glomerular Filt Rate 43; Glucose 203 mg/dL (65-110); Magnesium 2.1 mg/dL (1.6-2.3); Potassium 4.8 mmol/L (3.4-5.0); Sodium 140 mmol/L (137-145); Total Protein 6.7 g/dL (6.3-8.2); Troponin I 2.970 ng/mL (0.000-0.034)
[2025-04-19] MEDS: HYDROcodone/acetaminophen (*CRX) 5-325 MG TABLET 1 TAB PO (07:54)
[2025-04-19] MEDS: ROSUVASTATIN 20 MG TABLET PO (07:56)
[2025-04-19] MEDS: CYANOCOBALAMIN 1,000 MCG TABLET 3000 MCG PO (07:56)
[2025-04-19] MEDS: ASPIRIN 81 MG ENTERIC TABLET PO (07:56)
[2025-04-19] MEDS: TAMSULOSIN HCL 0.4 MG CAPSULE PO (07:56)
[2025-04-19] MEDS: INSULIN ASPART (*BKC) 100 UNITS/ML SUB-Q (07:58)
--- NOTE | 2025-04-19 08:20 | WPDHPUPDATE1 ---
History and Physical Update Update Date/Time: 04/19/25 08:20 History and Physical has been reviewed, including an updated exam of the patient. There are NO changes in the patient's condition. Risks, benefits, and alternatives have been discussed and questions answered. Patient agrees to proceed with procedure. has been cleared by cardiology to proceed with cysto/stent placement. will need definite stone management with Dr Garcia
[2025-04-19] MEDS: ceFAZolin 2 GM in SODIUM CHLORIDE 0.9% IV 50 ML 100 ML IVPB (08:30)
--- NOTE | 2025-04-19 08:33 | WPDANESEPPF ---
Anes - Initial Pre Proc Eval Procedure: Operation Date: 04/18/25 15:00 Proposed Procedures p Cystoscopy, Left Retrograde Pyelogram, Possible Stone Extraction, Possible Holmium Laser Lithotripsy, Possible Left Stent Placement(Left) - Benjie Garcia MD Operation Date: 04/19/25 08:15 Proposed Procedures p Cysto, RPG, Stone Ext, Stent Placement(Left) - Gopi Pearson MD Date/Time: 04/19/25 08:33 Surgeon: Franklyn Sullivan MD Pre Op Diagnosis: elevated torp, upj stone, chest pain Patient Data Age: 69 Gender: M Height: 1.73 m Weight: 88.9 kg Last Vital Signs Temp 98.4 F 04/19/25 07:40 Pulse 97 04/19/25 07:56 Resp 20 04/19/25 07:40 BP 123/75 04/19/25 07:40 Pulse Ox 95 04/19/25 07:40 O2 Del Method Room Air 04/19/25 03:45 Allergies Allergy/AdvReac Type Severity Reaction Status Date / Time No Known Allergies Allergy Verified 04/19/25 01:48 Home Medications ?Medication ?Instructions ?Recorded ?Confirmed ?Type aspirin 81 mg tablet,delayed 81 mg PO DAILY 06/12/19 04/17/25 History release mecobalamin (vitamin B12) 1,000 3,000 mcg PO DAILY 06/12/19 04/17/25 History mcg chewable tablet dapagliflozin propanediol 10 mg 10 mg PO DAILY #90 tabs 06/04/24 04/17/25 Rx tablet (Farxiga) metformin 1,000 mg tablet 1,000 mg PO BID #180 tabs 06/04/24 04/17/25 Rx blood sugar diagnostic #100 ea 01/03/25 04/17/25 Rx sitagliptin phosphate 100 mg 100 mg PO DAILY #90 tabs 02/06/25 04/17/25 Rx tablet (Januvia) carvedilol 12.5 mg tablet 12.5 mg PO DAILY 02/27/25 04/17/25 History rosuvastatin 20 mg tablet See Rx Instructions .Route 03/12/25 04/17/25 Rx .COMPLEX #90 tabs Laboratory Tests 04/18/25 04/18/25 04/18/25 11:28 15:54 20:28 WBC RBC Hgb Hct MCV MCH MCHC RDW Plt Count MPV Immature Gran % (Auto) Neut % (Auto) Lymph % (Auto) [place] % (Auto) Eos % (Auto) Baso % (Auto) Lymph # (Auto) [place] # (Auto) Eos # (Auto) Baso # (Auto) Abs Immat Gran (auto) Absolute Neuts (auto) Absolute Nucleated RBC Total Counted Neutrophils % (Manual) Band Neutrophils % Lymphocytes % (Manual) Monocytes % (Manual) Nucleated RBC % Abs Lymphs (Manual) Abs Monocytes (Manual) Atypical Lymphocytes Platelet Estimate [place] Cells Schistocytes Sodium Potassium Chloride Carbon Dioxide Anion Gap BUN Creatinine Estim Creat Clear Calc Estimated GFR Glucose POC Capillary Glucose 156 H mg/dl 194 H mg/dl 192 H mg/dl (65-105) (65-105) (65-105) Calcium Magnesium Total Bilirubin AST ALT Alkaline Phosphatase Troponin I Total Protein Albumin 04/18/25 04/19/25 04/19/25 21:24 00:39 03:24 WBC 10.4 H K/mm3 (4.5-10.0) RBC 4.47 L M/mm3 (4.6-6.20) Hgb 13.7 L g/dL (14.0-18.0) Hct 42.5 % (42.0-52.0) MCV 95.1 fl (80-100) MCH 30.6 pg (26-34) MCHC 32.2 g/dl (32-36) RDW 12.4 % (11.5-14.5) Plt Count 211 k/mm3 (150-375) MPV 10.3 fl (7.4-10.4) Immature Gran % (Auto) Not Reportable Neut % (Auto) Not Reportable Lymph % (Auto) Not Reportable [place] % (Auto) Not Reportable Eos % (Auto) Not Reportable Baso % (Auto) Not Reportable Lymph # (Auto) Not Reportable [place] # (Auto) Not Reportable Eos # (Auto) Not Reportable Baso # (Auto) Not Reportable Abs Immat Gran (auto) Not Reportable Absolute Neuts (auto) Not Reportable Absolute Nucleated RBC Not Reportable Total Counted 100 Neutrophils % (Manual) 85 H % (46-73) Band Neutrophils % Not Reportable Lymphocytes % (Manual) 8.0 L % (18-44) Monocytes % (Manual) 7 % (3-9) Nucleated RBC % Not Reportable Abs Lymphs (Manual) 0.83 L K/mm3 (1.1-4.5) Abs Monocytes (Manual) 0.72 K/mm3 (0.1-0.90) Atypical Lymphocytes Present Platelet Estimate Adequate (Adequate) [place] Cells 1+ Schistocytes None seen Sodium 140 mmol/L (137-145) Potassium 4.8 mmol/L (3.4-5.0) Chloride 106 mmol/L (98-107) Carbon Dioxide 24 mmol/L (22-30) Anion Gap 10 mmol/L (4-12) BUN 23 H mg/dL (9-20) Creatinine 1.60 H mg/dL (0.7-1.3) Estim Creat Clear Calc 39 ml/min Estimated GFR 43 L (59 - ) Glucose 203 H mg/dL (65-110) POC Capillary Glucose Calcium 9.2 mg/dL (8.4-10.2) Magnesium 2.1 mg/dL (1.6-2.3) Total Bilirubin 1.0 mg/dL (0.2-1.3) AST 30 U/L (17-59) ALT 18 U/L (6-50) Alkaline Phosphatase 79 U/L (38-126) Troponin I 2.350 H* ng/mL 1.850 H* D ng/mL 2.970 H* D ng/mL (0.000-0.034) (0.000-0.034) (0.000-0.034) Total Protein 6.7 g/dL (6.3-8.2) Albumin 3.9 g/dL (3.5-5.1) 04/19/25 07:14 WBC RBC Hgb Hct MCV MCH MCHC RDW Plt Count MPV Immature Gran % (Auto) Neut % (Auto) Lymph % (Auto) [place] % (Auto) Eos % (Auto) Baso % (Auto) Lymph # (Auto) [place] # (Auto) Eos # (Auto) Baso # (Auto) Abs Immat Gran (auto) Absolute Neuts (auto) Absolute Nucleated RBC Total Counted Neutrophils % (Manual) Band Neutrophils % Lymphocytes % (Manual) Monocytes % (Manual) Nucleated RBC % Abs Lymphs (Manual) Abs Monocytes (Manual) Atypical Lymphocytes Platelet Estimate Pramod Cells Schistocytes Sodium Potassium Chloride Carbon Dioxide Anion Gap BUN Creatinine Estim Creat Clear Calc Estimated GFR Glucose POC Capillary Glucose 211 H mg/dl (65-105) Calcium Magnesium Total Bilirubin AST ALT Alkaline Phosphatase Troponin I Total Protein Albumin Patient hx anesthesia problems: none Family hx anesthesia problems: none Results Review: All pre-operative results and documents have been reviewed as part of the pre-operative evaluation. [facility] Past Medical History Medical History Diabetes mellitus with neuropathy PAF (paroxysmal atrial fibrillation) Depression Psoriasis Eye hemorrhage bilateral, previously treated with laser CAD (coronary artery disease) CO x2, Stent x3 Diarrhea Colonoscopy refused NSTEMI (non-ST elevated myocardial infarction) Foot ulcer healed Chronic cholecystitis with calculus History of kidney stones Toe ulcer due to DM healed Shy-Drager syndrome Essential (primary) hypertension Mixed hyperlipidemia Ventral hernia without obstruction or gangrene Surgical History Surgical History History of cholecystectomy Hx laparoscopic cholecystectomy 05/11/20 H/O umbilical hernia repair H/O eye surgery History of heart artery stent Family History Family History Father Patient's father is , Onset Age: 34 smoke inhalation-matcher leather parts [facility] 1960 Grandparent Carcinoma of colon Sibling Family history of type 1 diabetes mellitus Mother Diabetes mellitus Sibling No problems noted. Social History Social History Smoking status: Never smoker Second hand tobacco smoke exposure: Yes Alcohol intake: never Drinks per week: 0 Substance use: never Substance use type: does not use Lack of Transportation: No Lack of Food: Never True Current Housing: I Have Housing Concerned About Future Housing: No Difficulty Paying Gas/Electric Bills: No Difficulty Paying for Meds: No Currently Unemployed: No Education: High School Diploma/GED Difficulty w/ Childcare or Family Care: No Living arrangements: with family Occupation/Education: retired Additional occupation/education comments: [employer] Gender identity (if verbalized by the patient): Male Spiritual care concerns: No Anes - Eval Final PreProcedure Day of Procedure 12/27/25 08:33 Patient weight: overweight Lungs: normal air movement Airway: Mallampati scale class II and special considerations (Lower teeth in place. ) Neurological: alert and oriented Last oral intake: >/= 8 hours ASA classification: IV Emergent: no Anesthetic plan: proceed Anesthesia type and monitoring: general ETT and standard monitoring Results Review: All pre-operative results and documents have been reviewed as part of the pre-operative evaluation. Complicated pt, I have spent sig time discussing his case w hospitalist, main entree cook and cashier, and urologist regarding timing of this procedure. Pt has known CAD based on cath 2022, now w ECHO that is essentially unchanged from prev but still w elevated troponins. Cardio indicates that no plans for a cardiac cath at this time, additionally pts creatine has worsened overnight. Pt having sig amount of flank pain in preop area. at bedside. She has full understanding and pt and her both adamant to proceed w procedure and surgery for ureteral stone to relieve pain. They want better quality of life for pt. Case discussed w SENIOR J2EE DEVELOPER. Informed Consent: The patient's anesthetic plan and its attendant risks and benefits were discussed with the patient/family/POA. Questions were solicited and answers provided to the satisfaction of the patient/family/POA.
[2025-04-19] MEDS: LIDOCAINE 2% JELLY 5 ML TUBE 1 APPLIC MUCOUS MEM (08:54)
--- NOTE | 2025-04-19 09:04 | P.PNUR_ITS ---
Progress Note: A&P Assessment and Plan (1) Left ureteral stone: Code(s): N20.1 - Calculus of ureter Status: Acute Plan 69-year-old male with an 8 mm left UPJ calculus with concomitant elevated troponin/NSTEMI 04/19 -plan for stent placement today, definitive stone mamangement with Dr Garcia in a few weeks, pt and understand stent is temporary Subjective Subjective Date/Time Seen: 04/19/25 09:04 Interval history: with continue pain, n/no vomitting, nio CP/SOB. cleared by cardiology to proceed Review of Systems Review of Systems: All systems reviewed & are unremarkable except as noted in HPI and below Exam Narrative: General: Awake, alert, comfortable, no acute distress HEENT: Normocephalic, atraumatic, sclerae anicteric Respiratory: Normal respiratory effort, no accessory muscle use Abdomen: Nondistended, soft, nontender Skin: Normal coloration, warm and dry Neurologic: No focal neuro deficits noted Psychiatric: Appropriate mood and affect, judgment and insight intact Objective Data Vital Signs Vital Signs: Vital Signs - 24 hr 04/18/25 10:00 04/18/25 11:58 04/18/25 12:00 Temperature 37.0 C Pulse Rate 81 79 79 Respiratory Rate 16 Blood Pressure 133/64 Pulse Oximetry 94 Oxygen Delivery 04/18/25 14:00 04/18/25 16:00 04/18/25 16:00 Temperature 36.9 C Pulse Rate 77 80 78 Respiratory Rate 18 Blood Pressure 130/65 Pulse Oximetry 95 Oxygen Delivery 04/18/25 18:00 04/18/25 18:49 04/18/25 19:56 Temperature 36.8 C Pulse Rate 82 110 H 89 Respiratory Rate 18 Blood Pressure 145/68 H 138/81 Pulse Oximetry 100 Oxygen Delivery 04/18/25 20:00 04/18/25 20:08 04/18/25 20:25 Temperature Pulse Rate 91 89 86 Respiratory Rate 18 Blood Pressure Pulse Oximetry 100 Oxygen Delivery Room Air 04/18/25 22:00 04/19/25 00:00 04/19/25 00:24 Temperature Pulse Rate 82 85 62 Respiratory Rate 18 Blood Pressure Pulse Oximetry 100 Oxygen Delivery Room Air 04/19/25 00:30 04/19/25 02:00 04/19/25 03:45 Temperature 37.2 C Pulse Rate 62 85 86 Respiratory Rate 18 18 Blood Pressure 133/95 H Pulse Oximetry 100 95 Oxygen Delivery Room Air 04/19/25 03:48 04/19/25 04:00 04/19/25 05:26 Temperature 36.4 C Pulse Rate 86 86 86 Respiratory Rate 18 Blood Pressure 118/68 Pulse Oximetry 95 Oxygen Delivery 04/19/25 07:40 04/19/25 07:56 Temperature 36.9 C Pulse Rate 91 97 Respiratory Rate 20 Blood Pressure 123/75 Pulse Oximetry 95 Oxygen Delivery Intake/Output Intake/Output: Intake & Output 04/16/25 04/17/25 04/18/25 04/19/25 23:59 23:59 23:59 23:59 Intake Total 1740 1790 400 Output Total 1150 300 140 Balance 590 1490 260 Meds/Results Medications: Active Medications Generic Name Dose Route Start Last Admin Trade Name Freq PRN Reason Stop Dose Admin Acetaminophen 650 mg 04/17/25 11:27 04/17/25 16:15 Acetaminophen 325 Mg Tablet PO 650 mg Q4H PRN Administration Mild Pain (1-3) or Fever Hydrocodone Bitart/Acetaminophen 1 tab 04/17/25 11:27 04/19/25 07:54 Hydrocodone/Acetaminophen (*Crx) 5-325 Mg Tablet PO 1 tab Q4H PRN Administration Pain Rated 4-6 Aspirin 81 mg 04/18/25 10:45 04/19/25 07:56 Aspirin 81 Mg Enteric Tablet PO 81 mg QAM JUAN Administration Carvedilol 6.25 mg 04/17/25 21:00 04/19/25 07:56 Carvedilol 6.25 Mg Tablet PO 6.25 mg Q12HR JUAN Administration Cyanocobalamin 3,000 mcg 04/18/25 09:00 04/19/25 07:56 Cyanocobalamin 1,000 Mcg Tablet PO 3,000 mcg DAILY JUAN Administration Dextrose 12.5 gm 04/17/25 14:09 Dextrose 50% 25 Gm/50 Ml Syringe IV PUSH PRN PRN Hypoglycemia Protocol Docusate Sodium 100 mg 04/17/25 17:03 Docusate Sodium 100 Mg Capsule PO Q12H PRN Constipation Fentanyl Citrate 25 mcg 04/19/25 08:25 Fentanyl Citrate Inj (*Crx) 100 Mcg/2 Ml Vial IV PUSH Q2M PRN Pain Glucagon 1 mg 04/17/25 14:09 Glucagon For Inj 1 Mg Vial IM PRN PRN Hypoglycemia Protocol Glucose 15 gm 04/17/25 14:09 Glucose Oral Gel 15 Gm Of Glucse In 37.5 Gm Tube PO PRN PRN Hypoglycemia Protocol Dextrose 1,000 mls @ 100 mls/hr 04/17/25 14:09 Dextrose 5% 1,000 Ml IVPB PRN PRN Hypoglycemia Protocol Lactated Ringer's 1,000 mls @ 30 mls/hr 04/19/25 08:25 Lr - Lactated Ringers Iv IV CONT .Q24H JUAN Lactated Ringer's 1,000 mls @ 30 mls/hr 04/19/25 08:25 Lr - Lactated Ringers Iv IV CONT .Q24H JUAN Insulin Aspart 3 - 6 units 04/17/25 17:00 04/19/25 07:58 Insulin Aspart (*Bkc) 100 Units/Ml SUB-Q 3 units TIDWM JUAN Administration Protocol Morphine Sulfate 4 mg 04/17/25 11:27 04/19/25 06:00 Morphine Sulfate (*Crx) 4 Mg/Ml Inj IV PUSH 4 mg Q2H PRN Administration Pain Rated 7-10 Nitroglycerin 1 inch 04/17/25 18:00 04/19/25 05:59 Nitroglycerin Ointment 1 Inch Dose TRANSDERM 1 inch Q6HR JUAN Administration Ondansetron HCl 4 mg 04/17/25 11:27 04/19/25 06:00 Ondansetron Inj 4 Mg/2 Ml Vial IV PUSH 4 mg Q4H PRN Administration Nausea Ondansetron HCl 4 mg 04/19/25 08:25 Ondansetron Inj 4 Mg/2 Ml Vial IV PUSH ONCE PRN Nausea Polyethylene Glycol 17 gm 04/17/25 17:03 Polyethylene Glycol 3350 17 Gm Powd.Pack PO QAM PRN Constipation Rosuvastatin Calcium 20 mg 04/17/25 14:10 04/19/25 07:56 Rosuvastatin 20 Mg Tablet PO 20 mg DAILY JUAN Administration Sitagliptin Phosphate 100 mg 04/18/25 09:00 04/19/25 07:56 Sitagliptin Phosphate 100 Mg Tablet PO 100 mg DAILY JUAN Administration Tamsulosin HCl 0.4 mg 04/17/25 15:40 04/19/25 07:56 Tamsulosin Hcl 0.4 Mg Capsule PO 0.4 mg QAM JUAN Administration Radiology Results: ITS Impressions Abdomen/Pelvis CT 04/17/25 09:44 IMPRESSION: 1. Left UPJ stone measuring 5-6 mm with mild hydronephrosis. Ribs X-Ray 04/17/25 10:02 IMPRESSION: 1:No acute displaced rib fractures. Chest X-Ray 04/17/25 11:10 IMPRESSION: 1: NO ACUTE CARDIOPULMONARY DISEASE. Labs Labs: Laboratory Results - last 24 hr 04/18/25 04/18/25 04/18/25 11:28 15:54 20:28 WBC RBC Hgb Hct MCV MCH MCHC RDW Plt Count MPV Immature Gran % (Auto) Neut % (Auto) Lymph % (Auto) [place] % (Auto) Eos % (Auto) Baso % (Auto) Lymph # (Auto) [place] # (Auto) Eos # (Auto) Baso # (Auto) Abs Immat Gran (auto) Absolute Neuts (auto) Absolute Nucleated RBC Total Counted Neutrophils % (Manual) Band Neutrophils % Lymphocytes % (Manual) Monocytes % (Manual) Nucleated RBC % Abs Lymphs (Manual) Abs Monocytes (Manual) Atypical Lymphocytes Platelet Estimate [place] Cells Schistocytes Sodium Potassium Chloride Carbon Dioxide Anion Gap BUN Creatinine Estim Creat Clear Calc Estimated GFR Glucose POC Capillary Glucose 156 H 194 H 192 H Calcium Magnesium Total Bilirubin AST ALT Alkaline Phosphatase Troponin I Total Protein Albumin 04/18/25 04/19/25 04/19/25 21:24 00:39 03:24 WBC 10.4 H RBC 4.47 L Hgb 13.7 L Hct 42.5 MCV 95.1 MCH 30.6 MCHC 32.2 RDW 12.4 Plt Count 211 MPV 10.3 Immature Gran % (Auto) Not Reportable Neut % (Auto) Not Reportable Lymph % (Auto) Not Reportable [place] % (Auto) Not Reportable Eos % (Auto) Not Reportable Baso % (Auto) Not Reportable Lymph # (Auto) Not Reportable [place] # (Auto) Not Reportable Eos # (Auto) Not Reportable Baso # (Auto) Not Reportable Abs Immat Gran (auto) Not Reportable Absolute Neuts (auto) Not Reportable Absolute Nucleated RBC Not Reportable Total Counted 100 Neutrophils % (Manual) 85 H Band Neutrophils % Not Reportable Lymphocytes % (Manual) 8.0 L Monocytes % (Manual) 7 Nucleated RBC % Not Reportable Abs Lymphs (Manual) 0.83 L Abs Monocytes (Manual) 0.72 Atypical Lymphocytes Present Platelet Estimate Adequate Pramod Cells 1+ Schistocytes None seen Sodium 140 Potassium 4.8 Chloride 106 Carbon Dioxide 24 Anion Gap 10 BUN 23 H Creatinine 1.60 H Estim Creat Clear Calc 39 Estimated GFR 43 L Glucose 203 H POC Capillary Glucose Calcium 9.2 Magnesium 2.1 Total Bilirubin 1.0 AST 30 ALT 18 Alkaline Phosphatase 79 Troponin I 2.350 H* 1.850 H* D 2.970 H* D Total Protein 6.7 Albumin 3.9 04/19/25 07:14 WBC RBC Hgb Hct MCV MCH MCHC RDW Plt Count MPV Immature Gran % (Auto) Neut % (Auto) Lymph % (Auto) [place] % (Auto) Eos % (Auto) Baso % (Auto) Lymph # (Auto) [place] # (Auto) Eos # (Auto) Baso # (Auto) Abs Immat Gran (auto) Absolute Neuts (auto) Absolute Nucleated RBC Total Counted Neutrophils % (Manual) Band Neutrophils % Lymphocytes % (Manual) Monocytes % (Manual) Nucleated RBC % Abs Lymphs (Manual) Abs Monocytes (Manual) Atypical Lymphocytes Platelet Estimate Pramod Cells Schistocytes Sodium Potassium Chloride Carbon Dioxide Anion Gap BUN Creatinine Estim Creat Clear Calc Estimated GFR Glucose POC Capillary Glucose 211 H Calcium Magnesium Total Bilirubin AST ALT Alkaline Phosphatase Troponin I Total Protein Albumin
--- NOTE | 2025-04-19 09:06 | P.OP_ITS ---
Procedure Note - Detailed Date of Procedure 04/19/25 Pre-op Diagnosis left ureteral stone Post-op Diagnosis Same Procedure Performed cystoscopy, left retrograde pyelogram, left ureteral stent placement Surgeon Gopi Pearson MD Anesthesia General Indications left stone, ORACIO, pain, nausea Findings mild bulbous stricture, left proximal ureter stone Description of Procedure Description of procedure: Pt was brought back to the operating room, received a general anesthesia via GETA, was prepped and draped in the dorsal lithotomy position with Betadine scrub to the genitalia. SCD's were on and functional for DVT ppx. Care was taken t o not hyperflex or hyperextend and extremity , all bony prominences were padded. He received a preoperative dose of cefazolin for ppx. After appropriate timeout a 22 fr cystoscope was inserted into the ureterha, the bulbous urethra had some narrowing ~ 18 Fr, but was able to be traversed with wire and cystoscope, prostate had bilobar hyperplasia, bladder mucosa was normal , he has single orthotopic ureteral orifices effluxing clear yellow urine, Sensor wire was placed under fluoroscopy up the left uo, stone was easily visible in proximal ureter as radio-opaque density, I was able to navigated the sensor wire past this into the upper pole. 5 Fr open ended catheter placed over the wire and gentle RPG was performed to outline collecting system, 4.8 Fr variable length stent was then deployed, good curl was seen fluoroscopically in the kidney and both fluoroscopically and endoscopically in the bladder, bladder was drained, all instruments and wires removed, pt was awoken and transferred to recovery in stable condition. Implants left 4.8 fr variable length stent Urine Output 140 Pathology None sent Complications No immediate complications Condition Stable Disposition PACU
[2025-04-19] MEDS: LACTATED RINGERS 1,000 ML 30 ML IV CONT (09:09)
--- NOTE | 2025-04-19 13:46 | P.PNCA_ITS ---
Progress Note: A&P Assessment and Plan (1) Non-ST elevated myocardial infarction: Code(s): I21.4 - Non-ST elevation (NSTEMI) myocardial infarction Status: Acute (2) Obstruction of left ureteropelvic junction (UPJ) due to stone: Code(s): N20.1 - Calculus of ureter Status: Acute (3) PAF (paroxysmal atrial fibrillation): Code(s): I48.0 - Paroxysmal atrial fibrillation Status: Acute (4) Diabetes mellitus with neuropathy: Qualifiers: Diabetes mellitus type: type 2 Diabetes mellitus group home insulin use: without group home use Qualified Code(s): E11.40 - Type 2 diabetes mellitus with diabetic neuropathy, unspecified Code(s): E11.40 - Type 2 diabetes mellitus with diabetic neuropathy, unspecified Status: Acute (5) Essential (primary) hypertension: Code(s): I10 - Essential (primary) hypertension Status: Acute (6) Mixed hyperlipidemia: Code(s): E78.2 - Mixed hyperlipidemia Status: Acute Plan CAD- FIXED CAD NOTED ON CATH PRIOR EVAL NOTED IN CONSULT/ HPI HE IS FOR MEDICAL MANAGEMENT. NO CP OR SOB OR OTHER ANGINAL EQUIVALENT. ADDED NITROPASTE 1ACW Q6 CONTINUED BB STATIN AND MAY NEED ADDITIONAL BP MED FOR AFTERLOAD REDUCTION ANTONINA/ARB/HYDRALAZINE OK TO INCREASE COREG TO 6.25 Q8 IF NEEDED TO MAINTAIN BETTER BP CONTROL. UROLOGY APPROVED ASA NSTEMI- SUSPECT RELATED TO THE OCCLUDED VESSELS NOTED IN THE CATH REPORT FOR MEDICAL MANAGEMENT AND OK FOR NITRATES AND BB AND STATIN AND AFTERLOAD REDUCTION ULTIMATELY BP/HR CONTROL. DISCUSSED WITH PT HIS HX OF BLEEDING IN THE EYE LEADS TO HESITATION FOR INITIATING HEPARIN NOTED. FLUCTUATION OF TROPONIN LIKELY ASSOCIATED WITH HIS UROLOGIC DISCOMFORT EKG GROSSLY UNCHANGED WITH LATERAL TWAVE DEPRESSIONS -PT HAD HIS PROCEDURE DONE THIS AM AND WOULD RECOMMEND TO CONTINUE WITH BB/ASA/STATIN/NITROPASTE. CAN ADVANCE BB TO 6.25MG Q8 TO INCREASE MEDRX FOR BETTER BP HR CONTROL HX OF AFIB- CURRENTLY NOT IN AFIB AND EKG SHOWED NSR NOT ON OAC. CONTINUE WITH BB FOR MANAGEMENT AND HAS BEEN ON ASA 81 HE HAS ELEVATED CHADS SCORE TELE SHOWED NSR KIDNEY STONE- ASA WAS OK WITH UROLOGY. HE HAD URETERAL STENT MAY NEED FURTHER DEFINITIVE MANAGEMENT WITH UROLOGY IN FEW WEEKS PREOP/POSTOP- HE IS AN ELEVATED RISK FOR MACE DUE TO MULTIPLE RF FOR CAD DM/HTN/CHOL/PRIOR PA AND KNOWN HX OF CAD/ AND LV DYSFXN. ECHO WAS DONE AND LVEF WAS ESTIMATED AT 55% NOTED AND WALL MOTION ABN CORRELATES WITH THE FINDING ON THE CATH REPORT FROM 12/2022. CONTINUE WITH CONSERVATIVE MEDICAL MANAGMENT AND F/U W/ DR FRAZIER IN 2WKS OUTPT DVT PROPH- RECOMMENDED DVT PROPHYLAXIS IN THE INTERIM FOR HIS HOSPITALIZATION OK FOR LOVENOX FROM MY STANDPOINT WILL SIGN OFF RECONSULT IF NEEDED PT IS STABLE FROM CARDIAC STANDPOINT ABDOMINAL PAIN RESOLVED. PT S/P NSTEMI FOR MEDRX WITH FIXED OCCLUSIVE CAD. OK FOR DISCHARGE WHEN OK WITH THE HOSPITALIST AND UROLOGIST. SUSPECT HE WILL NEED SOME PAIN MANAGEMENT PROPHYLAXIS OUTPT PER DISCRETION OF HOSPITALIST AND UROLOGIST. HE SHOULD REMAIN ON ASA 81MG AND COREG CRESTOR AND WOULD TRANSITION FROM NITROPASTE TO NITROPATCH 0.4MG DAILY FOR DISCHARGE PURPOSES TO SERVE AN ANTI- ISCHEMIC FOR THE FIXED OCCLUDED/NONREVASCULARIZABLE TERRITORY NOTED ON HIS PRIOR CATH. ARRANGE FOR FOLLOW UP WITH DR FRAZIER IN 2WKS Subjective Date/time seen: 04/19/25 13:46 Interval history: He underwent ureteral stent placement. Pt says his left abd pain he presented with has improved. Notices some discomfort with urination. NSR on tele monitor No CP or SOB or Diaph or Palpitations Exam Const: General: comfortable and no acute distress HENMT: Head: normocephalic and atraumatic Resp: Effort & Inspection: normal respiratory effort and able to speak in complete sentences Auscultation: clear to auscultation bilaterally Cardio: Rate: regular rate Rhythm: regular rhythm Other: NSR on tele monitor Extrem: General: no pedal edema and no calf tenderness Objective Data Vital Signs Vital Signs: Vital Signs - 24 hr 04/18/25 14:00 04/18/25 16:00 04/18/25 16:00 Temperature 36.9 C Pulse Rate 77 80 78 Respiratory Rate 18 Blood Pressure 130/65 Pulse Oximetry 95 Oxygen Delivery Oxygen Flow Rate 04/18/25 18:00 04/18/25 18:49 04/18/25 19:56 Temperature 36.8 C Pulse Rate 82 110 H 89 Respiratory Rate 18 Blood Pressure 145/68 H 138/81 Pulse Oximetry 100 Oxygen Delivery Oxygen Flow Rate 04/18/25 20:00 04/18/25 20:08 04/18/25 20:25 Temperature Pulse Rate 91 89 86 Respiratory Rate 18 Blood Pressure Pulse Oximetry 100 Oxygen Delivery Room Air Oxygen Flow Rate 04/18/25 22:00 04/19/25 00:00 04/19/25 00:24 Temperature Pulse Rate 82 85 62 Respiratory Rate 18 Blood Pressure Pulse Oximetry 100 Oxygen Delivery Room Air Oxygen Flow Rate 04/19/25 00:30 04/19/25 02:00 04/19/25 03:45 Temperature 37.2 C Pulse Rate 62 85 86 Respiratory Rate 18 18 Blood Pressure 133/95 H Pulse Oximetry 100 95 Oxygen Delivery Room Air Oxygen Flow Rate 04/19/25 03:48 04/19/25 04:00 04/19/25 05:26 Temperature 36.4 C Pulse Rate 86 86 86 Respiratory Rate 18 Blood Pressure 118/68 Pulse Oximetry 95 Oxygen Delivery Oxygen Flow Rate 04/19/25 07:40 04/19/25 07:56 04/19/25 08:00 Temperature 36.9 C Pulse Rate 91 97 91 Respiratory Rate 20 Blood Pressure 123/75 Pulse Oximetry 95 Oxygen Delivery Oxygen Flow Rate 04/19/25 09:09 04/19/25 09:20 04/19/25 09:35 Temperature 36.3 C L Pulse Rate 98 82 84 Respiratory Rate 12 16 14 Blood Pressure 108/66 115/70 113/74 Pulse Oximetry 98 100 94 Oxygen Delivery Simple Face Mask Simple Face Mask Nasal Cannula Oxygen Flow Rate 10 10 4 04/19/25 09:50 04/19/25 11:51 Temperature 36.7 C Pulse Rate 84 83 Respiratory Rate 20 20 Blood Pressure 125/78 124/60 Pulse Oximetry 94 96 Oxygen Delivery Nasal Cannula Oxygen Flow Rate 2 Intake/Output Intake/Output: Intake & Output 04/16/25 04/17/25 04/18/25 04/19/25 23:59 23:59 23:59 23:59 Intake Total 1740 1790 840 Output Total 1150 300 280 Balance 590 1490 560 Meds/Results Medications: Active Medications Generic Name Dose Route Start Last Admin Trade Name Freq PRN Reason Stop Dose Admin Acetaminophen 650 mg 04/17/25 11:27 04/17/25 16:15 Acetaminophen 325 Mg Tablet PO 650 mg Q4H PRN Administration Mild Pain (1-3) or Fever Hydrocodone Bitart/Acetaminophen 1 tab 04/17/25 11:27 04/19/25 07:54 Hydrocodone/Acetaminophen (*Crx) 5-325 Mg Tablet PO 1 tab Q4H PRN Administration Pain Rated 4-6 Aspirin 81 mg 04/18/25 10:45 04/19/25 07:56 Aspirin 81 Mg Enteric Tablet PO 81 mg QAM JUAN Administration Carvedilol 6.25 mg 04/17/25 21:00 04/19/25 07:56 Carvedilol 6.25 Mg Tablet PO 6.25 mg Q12HR JUAN Administration Cyanocobalamin 3,000 mcg 04/18/25 09:00 04/19/25 07:56 Cyanocobalamin 1,000 Mcg Tablet PO 3,000 mcg DAILY JUAN Administration Dextrose 12.5 gm 04/17/25 14:09 Dextrose 50% 25 Gm/50 Ml Syringe IV PUSH PRN PRN Hypoglycemia Protocol Docusate Sodium 100 mg 04/17/25 17:03 Docusate Sodium 100 Mg Capsule PO Q12H PRN Constipation Glucagon 1 mg 04/17/25 14:09 Glucagon For Inj 1 Mg Vial IM PRN PRN Hypoglycemia Protocol Glucose 15 gm 04/17/25 14:09 Glucose Oral Gel 15 Gm Of Glucse In 37.5 Gm Tube PO PRN PRN Hypoglycemia Protocol Dextrose 1,000 mls @ 100 mls/hr 04/17/25 14:09 Dextrose 5% 1,000 Ml IVPB PRN PRN Hypoglycemia Protocol Insulin Aspart 3 - 6 units 04/17/25 17:00 04/19/25 12:47 Insulin Aspart (*Bkc) 100 Units/Ml SUB-Q Not Given TIDWM [facility] Protocol Morphine Sulfate 4 mg 04/17/25 11:27 04/19/25 06:00 Morphine Sulfate (*Crx) 4 Mg/Ml Inj IV PUSH 4 mg Q2H PRN Administration Pain Rated 7-10 Nitroglycerin 1 inch 04/17/25 18:00 04/19/25 12:48 Nitroglycerin Ointment 1 Inch Dose TRANSDERM 1 inch Q6HR JUAN Administration Ondansetron HCl 4 mg 04/17/25 11:27 04/19/25 06:00 Ondansetron Inj 4 Mg/2 Ml Vial IV PUSH 4 mg Q4H PRN Administration Nausea Polyethylene Glycol 17 gm 04/17/25 17:03 Polyethylene Glycol 3350 17 Gm Powd.Pack PO QAM PRN Constipation Rosuvastatin Calcium 20 mg 04/17/25 14:10 04/19/25 07:56 Rosuvastatin 20 Mg Tablet PO 20 mg DAILY JUAN Administration Sitagliptin Phosphate 100 mg 04/18/25 09:00 04/19/25 07:56 Sitagliptin Phosphate 100 Mg Tablet PO 100 mg DAILY JUAN Administration Tamsulosin HCl 0.4 mg 04/17/25 15:40 04/19/25 07:56 Tamsulosin Hcl 0.4 Mg Capsule PO 0.4 mg QAM JUAN Administration Radiology Results: ITS Impressions Abdomen/Pelvis CT 04/17/25 09:44 IMPRESSION: 1. Left UPJ stone measuring 5-6 mm with mild hydronephrosis. Ribs X-Ray 04/17/25 10:02 IMPRESSION: 1:No acute displaced rib fractures. Chest X-Ray 04/17/25 11:10 IMPRESSION: 1: NO ACUTE CARDIOPULMONARY DISEASE. Labs Labs: Laboratory Results - last 24 hr 04/18/25 04/18/25 04/18/25 15:54 20:28 21:24 WBC RBC Hgb Hct MCV MCH MCHC RDW Plt Count MPV Immature Gran % (Auto) Neut % (Auto) Lymph % (Auto) [place] % (Auto) Eos % (Auto) Baso % (Auto) Lymph # (Auto) [place] # (Auto) Eos # (Auto) Baso # (Auto) Abs Immat Gran (auto) Absolute Neuts (auto) Absolute Nucleated RBC Total Counted Neutrophils % (Manual) Band Neutrophils % Lymphocytes % (Manual) Monocytes % (Manual) Nucleated RBC % Abs Lymphs (Manual) Abs Monocytes (Manual) Atypical Lymphocytes Platelet Estimate [place] Cells Schistocytes Sodium Potassium Chloride Carbon Dioxide Anion Gap BUN Creatinine Estim Creat Clear Calc Estimated GFR Glucose POC Capillary Glucose 194 H 192 H Calcium Magnesium Total Bilirubin AST ALT Alkaline Phosphatase Troponin I 2.350 H* Total Protein Albumin 04/19/25 04/19/25 04/19/25 00:39 03:24 07:14 WBC 10.4 H RBC 4.47 L Hgb 13.7 L Hct 42.5 MCV 95.1 MCH 30.6 MCHC 32.2 RDW 12.4 Plt Count 211 MPV 10.3 Immature Gran % (Auto) Not Reportable Neut % (Auto) Not Reportable Lymph % (Auto) Not Reportable [place] % (Auto) Not Reportable Eos % (Auto) Not Reportable Baso % (Auto) Not Reportable Lymph # (Auto) Not Reportable [place] # (Auto) Not Reportable Eos # (Auto) Not Reportable Baso # (Auto) Not Reportable Abs Immat Gran (auto) Not Reportable Absolute Neuts (auto) Not Reportable Absolute Nucleated RBC Not Reportable Total Counted 100 Neutrophils % (Manual) 85 H Band Neutrophils % Not Reportable Lymphocytes % (Manual) 8.0 L Monocytes % (Manual) 7 Nucleated RBC % Not Reportable Abs Lymphs (Manual) 0.83 L Abs Monocytes (Manual) 0.72 Atypical Lymphocytes Present Platelet Estimate Adequate [place] Cells 1+ Schistocytes None seen Sodium 140 Potassium 4.8 Chloride 106 Carbon Dioxide 24 Anion Gap 10 BUN 23 H Creatinine 1.60 H Estim Creat Clear Calc 39 Estimated GFR 43 L Glucose 203 H POC Capillary Glucose 211 H Calcium 9.2 Magnesium 2.1 Total Bilirubin 1.0 AST 30 ALT 18 Alkaline Phosphatase 79 Troponin I 1.850 H* D 2.970 H* D Total Protein 6.7 Albumin 3.9 04/19/25 11:23 WBC RBC Hgb Hct MCV MCH MCHC RDW Plt Count MPV Immature Gran % (Auto) Neut % (Auto) Lymph % (Auto) [place] % (Auto) Eos % (Auto) Baso % (Auto) Lymph # (Auto) [place] # (Auto) Eos # (Auto) Baso # (Auto) Abs Immat Gran (auto) Absolute Neuts (auto) Absolute Nucleated RBC Total Counted Neutrophils % (Manual) Band Neutrophils % Lymphocytes % (Manual) Monocytes % (Manual) Nucleated RBC % Abs Lymphs (Manual) Abs Monocytes (Manual) Atypical Lymphocytes Platelet Estimate [place] Cells Schistocytes Sodium Potassium Chloride Carbon Dioxide Anion Gap BUN Creatinine Estim Creat Clear Calc Estimated GFR Glucose POC Capillary Glucose 175 H Calcium Magnesium Total Bilirubin AST ALT Alkaline Phosphatase Troponin I Total Protein Albumin
--- NOTE | 2025-04-19 14:21 | PM.IMPN2 ---
Assessment and Plan Assessment and Plan (1) Non-ST elevated myocardial infarction: Code(s): I21.4 - Non-ST elevation (NSTEMI) myocardial infarction Status: Acute Assessment and Plan: Patient presented here with left lateral rib pain that is constant, sharp, stabbing that started 04/16/2025 around 10:30 p.m.. He has a past medical history significant for coronary artery disease, heart attack x2 and coronary stent x3. Currently follows with Dr. Maldonado for his cardiac care. His initial EKG showed ST depression. Initial troponin 0.092, repeat 0.335. Cardiology has been consulted, Dr. Horowitz, see note for full details. Further assessment, the patient has fixed coronary artery disease and should be managed medically. Recommended nitro paste, beta-jalen, statin. If BP remains elevated, may need additional medication for afterload reduction via ANTONINA/ARB/hydralazine. He has been cleared further perspective, however would be still be at an elevated risk due to his previously known cardiac history. Would recommend obtaining echo preop. But no current plans for cardiac catheterization or intervention. Would recommend starting aspirin after Urology proceeds with any clinically indicated procedures. Hesitant to start heparin as the patient has a history of bleeding in his eyes. -bedside RN related cardiac recommendations to the urologist, they are okay with proceeding with aspirin at this time and have tentative plans for procedure tomorrow -start nitro paste 1 in q.6H -continue beta-jalen, statin - Moderately elevated BP, if remains elevated per cardiology add ANTONINA/ARB/hydralazine -NSTEMI to be managed medically due to history of fixed CAD -hesitant on heparin given bilateral hemorrhage to the eyes -trend troponin and up trended to 3.1 04/18/2025. Discussed with Cardiology. Echocardiogram with EF 55% and inferior hypokinesis. Patient started on aspirin 81 mg now and daily. Nitropaste q.6 applied and will be continued -telemetry monitoring (2) Obstruction of left ureteropelvic junction (UPJ) due to stone: Code(s): N20.1 - Calculus of ureter Status: Acute Assessment and Plan: Upon initial evaluation on 04/17, the patient CT of the abdomen/pelvis showed a left UPJ measuring 5-6 mm with mild hydronephrosis. He has been cleared via Cardiology and is at an elevated risk due to his previously known cardiac history, see their note. Has been discussed with the urologist, they are okay with starting aspirin. -start Flomax -IV fluids: 125 mL/hour x2 L Status post cystoscopy left retrograde pyelogram and left ureteral stent placement 04/19/2025 (3) PAF (paroxysmal atrial fibrillation): Code(s): I48.0 - Paroxysmal atrial fibrillation Status: Acute Assessment and Plan: On Coreg 6.25 mg daily at home, cardiology recommended increasing to b.i.d.. Not great candidate for OAC due to previous hemorrhage to his bilateral eyes. Will continue aspirin. -increasing Coreg from 6.25 mg daily to 6.25 mg b.i.d. -continue aspirin 81 daily -telemetry (4) Diabetes mellitus with neuropathy: Qualifiers: Diabetes mellitus chcf insulin use: without terminal make up operator use Diabetes mellitus type: type 2 Qualified Code(s): E11.40 - Type 2 diabetes mellitus with diabetic neuropathy, unspecified Code(s): E11.40 - Type 2 diabetes mellitus with diabetic neuropathy, unspecified Status: Acute Assessment and Plan: - hypoglycemia protocol - POC blood glucose ACHS - home medication: Hold dapagliflozin and metformin. Continue Januvia. - correct regimen ordered - moderate dose TIDWM, based off BMI - A1C 7.9% June 2023, Repeat A1c 6.1 04/18/2025 (5) Mixed hyperlipidemia: Code(s): E78.2 - Mixed hyperlipidemia Status: Acute Assessment and Plan: -update lipid panel: LDL 37 HDL low at 27 -continue rosuvastatin (6) Essential (primary) hypertension: Code(s): I10 - Essential (primary) hypertension Status: Acute Assessment and Plan: - Coreg increased from 6.25 mg daily to b.i.d., was previously prescribed 2.5 mg daily but was having issues at this does show was taking a half tablet daily. - monitor Plan ORACIO mild will continue Diet: Heart healthy, NPO for planned procedure today GI Prophylaxis: N/a DVT Prophylaxis: SCDs Code Status: Full Code. However had extensive conversation with the patient and his . If he required CPR, he would only like 1 dose of epinephrine and if he is not resuscitated after this does he would like all efforts ceased. Patient does not want to be intubated for a prolonged duration, his is aware of his wishes, but would be okay with intubation if it were temporizing. Subjective Date/time seen: 04/19/25 14:21 Interval history: Discussed with Cardiology and anesthesia this a.m. patient at elevated risk however echo reasonable and unchanged as compared to previous echocardiogram. Cardiology suggest no further evaluation as patient's up trended troponin likely related to his known coronary artery disease. Patient does have elevated risk given his underlying coronary artery disease. Eventually went for stent placement this morning. Did well postoperatively and is seen postoperatively. Denies any chest pain or shortness of breath Review of Systems Review of Systems: All systems reviewed & are unremarkable except as noted in HPI and below Exam Narrative: GENERAL: Chronically ill-appearing, well-nourished, and in no acute distress. HEAD: Normocephalic, atraumatic. ENT: Mucous membranes moist. CHEST: Clear to auscultation. No respiratory distress. HEART: Regular rate and rhythm. Normal peripheral pulses. ABDOMEN: Soft, nontender, nondistended. EXTREMITIES: Normal range of motion. No edema. SKIN: Warm, dry, no rash. NEURO: Alert and oriented x3. PSYCH: Normal mood and affect. Objective Data Vital Signs Vital Signs: Vital Signs - 24 hr 04/18/25 16:00 04/18/25 16:00 04/18/25 18:00 Temperature 98.4 F Pulse Rate 80 78 82 Respiratory Rate 18 Blood Pressure 130/65 Pulse Oximetry 95 Oxygen Delivery Oxygen Flow Rate 04/18/25 18:49 04/18/25 19:56 04/18/25 20:00 Temperature 98.3 F Pulse Rate 110 H 89 91 Respiratory Rate 18 Blood Pressure 145/68 H 138/81 Pulse Oximetry 100 Oxygen Delivery Oxygen Flow Rate 04/18/25 20:08 04/18/25 20:25 04/18/25 22:00 Temperature Pulse Rate 89 86 82 Respiratory Rate 18 Blood Pressure Pulse Oximetry 100 Oxygen Delivery Room Air Oxygen Flow Rate 04/19/25 00:00 04/19/25 00:24 04/19/25 00:30 Temperature 98.9 F Pulse Rate 85 62 62 Respiratory Rate 18 18 Blood Pressure 133/95 H Pulse Oximetry 100 100 Oxygen Delivery Room Air Oxygen Flow Rate 04/19/25 02:00 04/19/25 03:45 04/19/25 03:48 Temperature 97.6 F Pulse Rate 85 86 86 Respiratory Rate 18 18 Blood Pressure 118/68 Pulse Oximetry 95 95 Oxygen Delivery Room Air Oxygen Flow Rate 04/19/25 04:00 04/19/25 05:26 04/19/25 07:40 Temperature 98.4 F Pulse Rate 86 86 91 Respiratory Rate 20 Blood Pressure 123/75 Pulse Oximetry 95 Oxygen Delivery Oxygen Flow Rate 04/19/25 07:56 04/19/25 08:00 04/19/25 09:09 Temperature 97.3 F L Pulse Rate 97 91 98 Respiratory Rate 12 Blood Pressure 108/66 Pulse Oximetry 98 Oxygen Delivery Simple Face Mask Oxygen Flow Rate 10 04/19/25 09:20 04/19/25 09:35 04/19/25 09:50 Temperature Pulse Rate 82 84 84 Respiratory Rate 16 14 20 Blood Pressure 115/70 113/74 125/78 Pulse Oximetry 100 94 94 Oxygen Delivery Simple Face Mask Nasal Cannula Nasal Cannula Oxygen Flow Rate 10 4 2 04/19/25 11:51 Temperature 98.1 F Pulse Rate 83 Respiratory Rate 20 Blood Pressure 124/60 Pulse Oximetry 96 Oxygen Delivery Oxygen Flow Rate Intake/Output Intake/Output: Intake & Output 04/16/25 04/17/25 04/18/25 04/19/25 23:59 23:59 23:59 23:59 Intake Total 1740 1790 840 Output Total 1150 300 280 Balance 590 1490 560 Meds/Results Medications: Active Medications Generic Name Dose Route Start Last Admin Trade Name Freq PRN Reason Stop Dose Admin Acetaminophen 650 mg 04/17/25 11:27 04/17/25 16:15 Acetaminophen 325 Mg Tablet PO 650 mg Q4H PRN Administration Mild Pain (1-3) or Fever Hydrocodone Bitart/Acetaminophen 1 tab 04/17/25 11:27 04/19/25 07:54 Hydrocodone/Acetaminophen (*Crx) 5-325 Mg Tablet PO 1 tab Q4H PRN Administration Pain Rated 4-6 Aspirin 81 mg 04/18/25 10:45 04/19/25 07:56 Aspirin 81 Mg Enteric Tablet PO 81 mg QAM JUAN Administration Carvedilol 6.25 mg 04/17/25 21:00 04/19/25 07:56 Carvedilol 6.25 Mg Tablet PO 6.25 mg Q12HR JUAN Administration Cyanocobalamin 3,000 mcg 04/18/25 09:00 04/19/25 07:56 Cyanocobalamin 1,000 Mcg Tablet PO 3,000 mcg DAILY JUAN Administration Dextrose 12.5 gm 04/17/25 14:09 Dextrose 50% 25 Gm/50 Ml Syringe IV PUSH PRN PRN Hypoglycemia Protocol Docusate Sodium 100 mg 04/17/25 17:03 Docusate Sodium 100 Mg Capsule PO Q12H PRN Constipation Glucagon 1 mg 04/17/25 14:09 Glucagon For Inj 1 Mg Vial IM PRN PRN Hypoglycemia Protocol Glucose 15 gm 04/17/25 14:09 Glucose Oral Gel 15 Gm Of Glucse In 37.5 Gm Tube PO PRN PRN Hypoglycemia Protocol Dextrose 1,000 mls @ 100 mls/hr 04/17/25 14:09 Dextrose 5% 1,000 Ml IVPB PRN PRN Hypoglycemia Protocol Insulin Aspart 3 - 6 units 04/17/25 17:00 04/19/25 12:47 Insulin Aspart (*Bkc) 100 Units/Ml SUB-Q Not Given TIDWM JUAN Protocol Morphine Sulfate 4 mg 04/17/25 11:27 04/19/25 06:00 Morphine Sulfate (*Crx) 4 Mg/Ml Inj IV PUSH 4 mg Q2H PRN Administration Pain Rated 7-10 Nitroglycerin 1 inch 04/17/25 18:00 04/19/25 12:48 Nitroglycerin Ointment 1 Inch Dose TRANSDERM 1 inch Q6HR JUAN Administration Ondansetron HCl 4 mg 04/17/25 11:27 04/19/25 06:00 Ondansetron Inj 4 Mg/2 Ml Vial IV PUSH 4 mg Q4H PRN Administration Nausea Polyethylene Glycol 17 gm 04/17/25 17:03 Polyethylene Glycol 3350 17 Gm Powd.Pack PO QAM PRN Constipation Rosuvastatin Calcium 20 mg 04/17/25 14:10 04/19/25 07:56 Rosuvastatin 20 Mg Tablet PO 20 mg DAILY JUAN Administration Sitagliptin Phosphate 100 mg 04/18/25 09:00 04/19/25 07:56 Sitagliptin Phosphate 100 Mg Tablet PO 100 mg DAILY JUAN Administration Tamsulosin HCl 0.4 mg 04/17/25 15:40 04/19/25 07:56 Tamsulosin Hcl 0.4 Mg Capsule PO 0.4 mg QAM JUAN Administration Radiology Results: ITS Impressions Abdomen/Pelvis CT 04/17/25 09:44 IMPRESSION: 1. Left UPJ stone measuring 5-6 mm with mild hydronephrosis. Ribs X-Ray 04/17/25 10:02 IMPRESSION: 1:No acute displaced rib fractures. Chest X-Ray 04/17/25 11:10 IMPRESSION: 1: NO ACUTE CARDIOPULMONARY DISEASE. Retrograde Pyelogram 04/19/25 13:56 IMPRESSION: 1. As above Labs Labs: Laboratory Results - last 24 hr 04/18/25 04/18/25 04/18/25 15:54 20:28 21:24 WBC RBC Hgb Hct MCV MCH MCHC RDW Plt Count MPV Immature Gran % (Auto) Neut % (Auto) Lymph % (Auto) [place] % (Auto) Eos % (Auto) Baso % (Auto) Lymph # (Auto) [place] # (Auto) Eos # (Auto) Baso # (Auto) Abs Immat Gran (auto) Absolute Neuts (auto) Absolute Nucleated RBC Total Counted Neutrophils % (Manual) Band Neutrophils % Lymphocytes % (Manual) Monocytes % (Manual) Nucleated RBC % Abs Lymphs (Manual) Abs Monocytes (Manual) Atypical Lymphocytes Platelet Estimate [place] Cells Schistocytes Sodium Potassium Chloride Carbon Dioxide Anion Gap BUN Creatinine Estim Creat Clear Calc Estimated GFR Glucose POC Capillary Glucose 194 H 192 H Calcium Magnesium Total Bilirubin AST ALT Alkaline Phosphatase Troponin I 2.350 H* Total Protein Albumin 04/19/25 04/19/25 04/19/25 00:39 03:24 07:14 WBC 10.4 H RBC 4.47 L Hgb 13.7 L Hct 42.5 MCV 95.1 MCH 30.6 MCHC 32.2 RDW 12.4 Plt Count 211 MPV 10.3 Immature Gran % (Auto) Not Reportable Neut % (Auto) Not Reportable Lymph % (Auto) Not Reportable [place] % (Auto) Not Reportable Eos % (Auto) Not Reportable Baso % (Auto) Not Reportable Lymph # (Auto) Not Reportable [place] # (Auto) Not Reportable Eos # (Auto) Not Reportable Baso # (Auto) Not Reportable Abs Immat Gran (auto) Not Reportable Absolute Neuts (auto) Not Reportable Absolute Nucleated RBC Not Reportable Total Counted 100 Neutrophils % (Manual) 85 H Band Neutrophils % Not Reportable Lymphocytes % (Manual) 8.0 L Monocytes % (Manual) 7 Nucleated RBC % Not Reportable Abs Lymphs (Manual) 0.83 L Abs Monocytes (Manual) 0.72 Atypical Lymphocytes Present Platelet Estimate Adequate Pramod Cells 1+ Schistocytes None seen Sodium 140 Potassium 4.8 Chloride 106 Carbon Dioxide 24 Anion Gap 10 BUN 23 H Creatinine 1.60 H Estim Creat Clear Calc 39 Estimated GFR 43 L Glucose 203 H POC Capillary Glucose 211 H Calcium 9.2 Magnesium 2.1 Total Bilirubin 1.0 AST 30 ALT 18 Alkaline Phosphatase 79 Troponin I 1.850 H* D 2.970 H* D Total Protein 6.7 Albumin 3.9 04/19/25 11:23 WBC RBC Hgb Hct MCV MCH MCHC RDW Plt Count MPV Immature Gran % (Auto) Neut % (Auto) Lymph % (Auto) [place] % (Auto) Eos % (Auto) Baso % (Auto) Lymph # (Auto) [place] # (Auto) Eos # (Auto) Baso # (Auto) Abs Immat Gran (auto) Absolute Neuts (auto) Absolute Nucleated RBC Total Counted Neutrophils % (Manual) Band Neutrophils % Lymphocytes % (Manual) Monocytes % (Manual) Nucleated RBC % Abs Lymphs (Manual) Abs Monocytes (Manual) Atypical Lymphocytes Platelet Estimate [place] Cells Schistocytes Sodium Potassium Chloride Carbon Dioxide Anion Gap BUN Creatinine Estim Creat Clear Calc Estimated GFR Glucose POC Capillary Glucose 175 H Calcium Magnesium Total Bilirubin AST ALT Alkaline Phosphatase Troponin I Total Protein Albumin
[2025-04-20] VITALS (15 sets, daily range): BP systolic 138–157; BP diastolic 68–96; PULSE 65–95; RESP 15–22; TEMP 36.3–37.1; O2SAT 91–100
[2025-04-20] MEDS: NITROGLYCERIN OINTMENT 1 INCH DOSE TRANSDERM ×4 (00:21→18:10)
[2025-04-20] MEDS: HYDROcodone/acetaminophen (*CRX) 5-325 MG TABLET 1 TAB PO ×2 (03:12→10:46)
[2025-04-20 04:28] LABS: Hematocrit 36.7 % (42.0-52.0); Hemoglobin 12.1 g/dL (14.0-18.0); Immature Granulocyte Percent A 0.3 % (0-0.5); Lymphocytes Absolute Auto 0.79 K/mm3 (0.9-3.2); Mean Corpuscular HGB Conc 33.0 g/dl (32-36); Mean Corpuscular Hemoglobin 30.4 pg (26-34); Mean Corpuscular Volume 92.2 fl (80-100); Nucleated Red Blood Cells Absolute Auto 0.000 K/mm3 (0.0-0.012); Nucleated Red Blood Cells Perc 0.0 % (0.0-0.2); Platelet Count Result 188 k/mm3 (150-375); Red Blood Count 3.98 M/mm3 (4.6-6.20); White Blood Count 7.3 K/mm3 (4.5-10.0)
[2025-04-20 04:53] LABS: Alanine Aminotransferase 16 U/L (6-50); Albumin Level 3.5 g/dL (3.5-5.1); Alkaline Phosphatase 75 U/L (38-126); Anion Gap 6 mmol/L (4-12); Aspartate Amino Transferase 45 U/L (17-59); Bilirubin,Total 0.8 mg/dL (0.2-1.3); Blood Urea Nitrogen 25 mg/dL (9-20); Calcium 8.9 mg/dL (8.4-10.2); Carbon Dioxide 25 mmol/L (22-30); Chloride 106 mmol/L (98-107); Estimated CRCL calculation 72 ml/min; Estimated Glomerular Filt Rate > 60; Glucose 175 mg/dL (65-110); Magnesium 2.0 mg/dL (1.6-2.3); Potassium 4.0 mmol/L (3.4-5.0); Sodium 137 mmol/L (137-145); Total Protein 6.2 g/dL (6.3-8.2)
[2025-04-20] MEDS: CYANOCOBALAMIN 1,000 MCG TABLET 3000 MCG PO (10:05)
[2025-04-20] MEDS: TAMSULOSIN HCL 0.4 MG CAPSULE PO (10:05)
[2025-04-20] MEDS: ROSUVASTATIN 20 MG TABLET PO (10:05)
[2025-04-20] MEDS: ASPIRIN 81 MG ENTERIC TABLET PO (10:06)
[2025-04-20] MEDS: DOCUSATE SODIUM 100 MG CAPSULE PO (10:06)
--- NOTE | 2025-04-20 10:06 | WPDUROPN2 ---
Progress Note: A&P Assessment and Plan (1) Left ureteral stone: Code(s): N20.1 - Calculus of ureter Status: Acute Plan 69-year-old male with an 8 mm left UPJ calculus with concomitant elevated troponin/NSTEMI 04/20 POD#1 s/p stent placement, Cr normalized, pain improved - definitive stone mamangement with Dr Garcia in a few weeks, pt and understand stent is temporary Subjective Subjective Date/Time Seen: 04/20/25 10:06 Interval history: NAEO. no gu complaints, tolerating stent Review of Systems Review of Systems: All systems reviewed & are unremarkable except as noted in HPI and below Exam Const: General: comfortable and no acute distress HENMT: Face/Nose/Sinus: Normal nares present Mouth: Yes moist mucous membranes Eyes: General: appearance normal, both eyes and all related structures Resp: Effort & Inspection: normal respiratory effort Cardio: Rate: regular rate GI: Inspection: non-distended GI Palp: Yes Soft to palpation, No Tenderness to palpation present (GI) and No Guarding due to palpation present (GI) Skin: General skin exam: normal color and no rashes or lesions noted Extrem: General: normal to inspection Objective Data Vital Signs Vital Signs: Vital Signs - 24 hr 04/19/25 11:51 04/19/25 12:00 04/19/25 14:00 Temperature 36.7 C Pulse Rate 83 76 80 Respiratory Rate 20 Blood Pressure 124/60 Pulse Oximetry 96 Oxygen Delivery 04/19/25 16:00 04/19/25 16:02 04/19/25 18:00 Temperature 36.0 C L Pulse Rate 80 82 87 Respiratory Rate 20 Blood Pressure 134/76 Pulse Oximetry 95 Oxygen Delivery 04/19/25 19:26 04/19/25 20:00 04/19/25 20:01 Temperature 36.4 C Pulse Rate 86 88 86 Respiratory Rate 16 16 Blood Pressure 133/69 Pulse Oximetry 95 95 Oxygen Delivery Room Air 04/19/25 20:12 04/19/25 21:13 04/19/25 22:00 Temperature Pulse Rate 95 85 89 Respiratory Rate Blood Pressure 133/69 Pulse Oximetry Oxygen Delivery 04/19/25 23:46 04/20/25 00:00 04/20/25 00:14 Temperature 36.6 C Pulse Rate 82 88 82 Respiratory Rate 15 15 Blood Pressure 129/73 Pulse Oximetry 94 94 Oxygen Delivery Room Air 04/20/25 02:00 04/20/25 03:10 04/20/25 04:00 Temperature Pulse Rate 84 88 92 Respiratory Rate 16 Blood Pressure Pulse Oximetry 94 Oxygen Delivery Room Air 04/20/25 04:45 04/20/25 05:58 04/20/25 08:03 Temperature 36.6 C 36.3 C L Pulse Rate 88 82 95 Respiratory Rate 16 22 H Blood Pressure 138/68 157/85 H Pulse Oximetry 94 95 Oxygen Delivery Intake/Output Intake/Output: Intake & Output 04/17/25 04/18/25 04/19/25 04/20/25 23:59 23:59 23:59 23:59 Intake Total 1740 1790 1040 730 Output Total 1150 300 830 180 Balance 590 1490 210 550 Meds/Results Medications: Active Medications Generic Name Dose Route Start Last Admin Trade Name Freq PRN Reason Stop Dose Admin Acetaminophen 650 mg 04/17/25 11:27 04/17/25 16:15 Acetaminophen 325 Mg Tablet PO 650 mg Q4H PRN Administration Mild Pain (1-3) or Fever Hydrocodone Bitart/Acetaminophen 1 tab 04/17/25 11:27 04/20/25 03:12 Hydrocodone/Acetaminophen (*Crx) 5-325 Mg Tablet PO 1 tab Q4H PRN Administration Pain Rated 4-6 Aspirin 81 mg 04/18/25 10:45 04/19/25 07:56 Aspirin 81 Mg Enteric Tablet PO 81 mg QAM JUAN Administration Carvedilol 6.25 mg 04/17/25 21:00 04/19/25 20:12 Carvedilol 6.25 Mg Tablet PO 6.25 mg Q12HR JUAN Administration Cyanocobalamin 3,000 mcg 04/18/25 09:00 04/19/25 07:56 Cyanocobalamin 1,000 Mcg Tablet PO 3,000 mcg DAILY JUAN Administration Dextrose 12.5 gm 04/17/25 14:09 Dextrose 50% 25 Gm/50 Ml Syringe IV PUSH PRN PRN Hypoglycemia Protocol Docusate Sodium 100 mg 04/17/25 17:03 Docusate Sodium 100 Mg Capsule PO Q12H PRN Constipation Glucagon 1 mg 04/17/25 14:09 Glucagon For Inj 1 Mg Vial IM PRN PRN Hypoglycemia Protocol Glucose 15 gm 04/17/25 14:09 Glucose Oral Gel 15 Gm Of Glucse In 37.5 Gm Tube PO PRN PRN Hypoglycemia Protocol Dextrose 1,000 mls @ 100 mls/hr 04/17/25 14:09 Dextrose 5% 1,000 Ml IVPB PRN PRN Hypoglycemia Protocol Insulin Aspart 3 - 6 units 04/17/25 17:00 04/19/25 17:53 Insulin Aspart (*Bkc) 100 Units/Ml SUB-Q Not Given TIDWM JUAN Protocol Morphine Sulfate 4 mg 04/17/25 11:27 04/19/25 06:00 Morphine Sulfate (*Crx) 4 Mg/Ml Inj IV PUSH 4 mg Q2H PRN Administration Pain Rated 7-10 Nitroglycerin 1 inch 04/17/25 18:00 04/20/25 06:18 Nitroglycerin Ointment 1 Inch Dose TRANSDERM 1 inch Q6HR JUAN Administration Ondansetron HCl 4 mg 04/17/25 11:27 04/19/25 06:00 Ondansetron Inj 4 Mg/2 Ml Vial IV PUSH 4 mg Q4H PRN Administration Nausea Polyethylene Glycol 17 gm 04/17/25 17:03 Polyethylene Glycol 3350 17 Gm Powd.Pack PO QAM PRN Constipation Rosuvastatin Calcium 20 mg 04/17/25 14:10 04/19/25 07:56 Rosuvastatin 20 Mg Tablet PO 20 mg DAILY JUAN Administration Sitagliptin Phosphate 100 mg 04/18/25 09:00 04/19/25 07:56 Sitagliptin Phosphate 100 Mg Tablet PO 100 mg DAILY JUAN Administration Tamsulosin HCl 0.4 mg 04/17/25 15:40 04/19/25 07:56 Tamsulosin Hcl 0.4 Mg Capsule PO 0.4 mg QAM JUAN Administration Radiology Results: ITS Impressions Abdomen/Pelvis CT 04/17/25 09:44 IMPRESSION: 1. Left UPJ stone measuring 5-6 mm with mild hydronephrosis. Ribs X-Ray 04/17/25 10:02 IMPRESSION: 1:No acute displaced rib fractures. Chest X-Ray 04/17/25 11:10 IMPRESSION: 1: NO ACUTE CARDIOPULMONARY DISEASE. Retrograde Pyelogram 04/19/25 13:56 IMPRESSION: 1. As above Labs Labs: Laboratory Results - last 24 hr 04/19/25 04/19/25 04/19/25 11:23 15:16 22:29 WBC RBC Hgb Hct MCV MCH MCHC RDW Plt Count MPV Immature Gran % (Auto) Neut % (Auto) Lymph % (Auto) [place] % (Auto) Eos % (Auto) Baso % (Auto) Lymph # (Auto) [place] # (Auto) Eos # (Auto) Baso # (Auto) Abs Immat Gran (auto) Absolute Neuts (auto) Absolute Nucleated RBC Nucleated RBC % Sodium Potassium Chloride Carbon Dioxide Anion Gap BUN Creatinine Estim Creat Clear Calc Estimated GFR Glucose POC Capillary Glucose 175 H 197 H 203 H Calcium Magnesium Total Bilirubin AST ALT Alkaline Phosphatase Total Protein Albumin 04/20/25 04/20/25 04:04 08:04 WBC 7.3 RBC 3.98 L Hgb 12.1 L Hct 36.7 L MCV 92.2 MCH 30.4 MCHC 33.0 RDW 12.4 Plt Count 188 MPV 10.4 Immature Gran % (Auto) 0.3 Neut % (Auto) 78.1 H Lymph % (Auto) 10.8 L [place] % (Auto) 10.0 H Eos % (Auto) 0.5 Baso % (Auto) 0.3 Lymph # (Auto) 0.79 L [place] # (Auto) 0.7 H Eos # (Auto) 0.0 Baso # (Auto) 0.0 Abs Immat Gran (auto) 0.02 Absolute Neuts (auto) 5.7 Absolute Nucleated RBC 0.000 Nucleated RBC % 0.0 Sodium 137 Potassium 4.0 Chloride 106 Carbon Dioxide 25 Anion Gap 6 BUN 25 H Creatinine 0.83 Estim Creat Clear Calc 72 Estimated GFR > 60 Glucose 175 H POC Capillary Glucose 172 H Calcium 8.9 Magnesium 2.0 Total Bilirubin 0.8 AST 45 ALT 16 Alkaline Phosphatase 75 Total Protein 6.2 L Albumin 3.5
[2025-04-20] MEDS: INSULIN ASPART (*BKC) 100 UNITS/ML SUB-Q (11:56)
--- NOTE | 2025-04-20 12:40 | PM.IMPN2 ---
Assessment and Plan Assessment and Plan (1) Non-ST elevated myocardial infarction: Code(s): I21.4 - Non-ST elevation (NSTEMI) myocardial infarction Status: Acute Assessment and Plan: Patient presented here with left lateral rib pain that is constant, sharp, stabbing that started 04/16/2025 around 10:30 p.m.. He has a past medical history significant for coronary artery disease, heart attack x2 and coronary stent x3. Currently follows with Dr. Maldonado for his cardiac care. His initial EKG showed ST depression. Initial troponin 0.092, repeat 0.335. Cardiology has been consulted, Dr. Horowitz, see note for full details. Further assessment, the patient has fixed coronary artery disease and should be managed medically. Recommended nitro paste, beta-jalen, statin. If BP remains elevated, may need additional medication for afterload reduction via ANTONINA/ARB/hydralazine. He has been cleared further perspective, however would be still be at an elevated risk due to his previously known cardiac history. Would recommend obtaining echo preop. But no current plans for cardiac catheterization or intervention. Would recommend starting aspirin after Urology proceeds with any clinically indicated procedures. Hesitant to start heparin as the patient has a history of bleeding in his eyes. -bedside RN related cardiac recommendations to the urologist, they are okay with proceeding with aspirin at this time and have tentative plans for procedure tomorrow -start nitro paste 1 in q.6H -continue beta-jalen, statin - Moderately elevated BP, if remains elevated per cardiology add ANTONINA/ARB/hydralazine -NSTEMI to be managed medically due to history of fixed CAD -hesitant on heparin given bilateral hemorrhage to the eyes -trend troponin and up trended to 3.1 04/18/2025. Discussed with Cardiology. Echocardiogram with EF 55% and inferior hypokinesis. Patient started on aspirin 81 mg now and daily. Nitropaste q.6 applied and will be continued -telemetry monitoring (2) Obstruction of left ureteropelvic junction (UPJ) due to stone: Code(s): N20.1 - Calculus of ureter Status: Acute Assessment and Plan: Upon initial evaluation on 04/17, the patient CT of the abdomen/pelvis showed a left UPJ measuring 5-6 mm with mild hydronephrosis. He has been cleared via Cardiology and is at an elevated risk due to his previously known cardiac history, see their note. Has been discussed with the urologist, they are okay with starting aspirin. -start Flomax -IV fluids: 125 mL/hour x2 L Status post cystoscopy left retrograde pyelogram and left ureteral stent placement 04/19/2025 Follow-up with urology for definitive stone management (3) PAF (paroxysmal atrial fibrillation): Code(s): I48.0 - Paroxysmal atrial fibrillation Status: Acute Assessment and Plan: On Coreg 6.25 mg daily at home, cardiology recommended increasing to b.i.d.. Not great candidate for OAC due to previous hemorrhage to his bilateral eyes. Will continue aspirin. -increasing Coreg from 6.25 mg daily to 6.25 mg b.i.d. -continue aspirin 81 daily -telemetry (4) Diabetes mellitus with neuropathy: Qualifiers: Diabetes mellitus type: type 2 Diabetes mellitus [employer] insulin use: without longterm use Qualified Code(s): E11.40 - Type 2 diabetes mellitus with diabetic neuropathy, unspecified Code(s): E11.40 - Type 2 diabetes mellitus with diabetic neuropathy, unspecified Status: Acute Assessment and Plan: - hypoglycemia protocol - POC blood glucose ACHS - home medication: Hold dapagliflozin and metformin. Continue Januvia. - correct regimen ordered - moderate dose TIDWM, based off BMI - A1C 7.9% June 2023, Repeat A1c 6.1 04/18/2025 (5) Mixed hyperlipidemia: Code(s): E78.2 - Mixed hyperlipidemia Status: Acute Assessment and Plan: -update lipid panel: LDL 37 HDL low at 27 -continue rosuvastatin (6) Essential (primary) hypertension: Code(s): I10 - Essential (primary) hypertension Status: Acute Assessment and Plan: - Coreg increased from 6.25 mg daily to b.i.d., was previously prescribed 2.5 mg daily but was having issues at this does show was taking a half tablet daily. - monitor Plan ORACIO mild resolved Diet: Heart healthy, GI Prophylaxis: N/a DVT Prophylaxis: SCDs Code Status: Full Code. However had extensive conversation with the patient and his . If he required CPR, he would only like 1 dose of epinephrine and if he is not resuscitated after this does he would like all efforts ceased. Patient does not want to be intubated for a prolonged duration, his is aware of his wishes, but would be okay with intubation if it were temporizing. Subjective Date/time seen: 04/20/25 12:40 Interval history: No overnight events. Pain has improved. Did not like food here and hence is bringing food from outside. No shortness of breath or chest pain. Review of Systems Review of Systems: All systems reviewed & are unremarkable except as noted in HPI and below Exam Narrative: GENERAL: Chronically ill-appearing, well-nourished, and in no acute distress. HEAD: Normocephalic, atraumatic. ENT: Mucous membranes moist. CHEST: Clear to auscultation. No respiratory distress. HEART: Regular rate and rhythm. Normal peripheral pulses. ABDOMEN: Soft, nontender, nondistended. EXTREMITIES: Normal range of motion. No edema. SKIN: Warm, dry, no rash. NEURO: Alert and oriented x3. PSYCH: Normal mood and affect. Objective Data Vital Signs Vital Signs: Vital Signs - 24 hr 04/19/25 14:00 04/19/25 16:00 04/19/25 16:02 Temperature 96.8 F L Pulse Rate 80 80 82 Respiratory Rate 20 Blood Pressure 134/76 Pulse Oximetry 95 Oxygen Delivery 04/19/25 18:00 04/19/25 19:26 04/19/25 20:00 Temperature 97.6 F Pulse Rate 87 86 88 Respiratory Rate 16 Blood Pressure 133/69 Pulse Oximetry 95 Oxygen Delivery 04/19/25 20:01 04/19/25 20:12 04/19/25 21:13 Temperature Pulse Rate 86 95 85 Respiratory Rate 16 Blood Pressure 133/69 Pulse Oximetry 95 Oxygen Delivery Room Air 04/19/25 22:00 04/19/25 23:46 04/20/25 00:00 Temperature 97.8 F Pulse Rate 89 82 88 Respiratory Rate 15 Blood Pressure 129/73 Pulse Oximetry 94 Oxygen Delivery 04/20/25 00:14 04/20/25 02:00 04/20/25 03:10 Temperature Pulse Rate 82 84 88 Respiratory Rate 15 16 Blood Pressure Pulse Oximetry 94 94 Oxygen Delivery Room Air Room Air 04/20/25 04:00 04/20/25 04:45 04/20/25 05:58 Temperature 97.8 F Pulse Rate 92 88 82 Respiratory Rate 16 Blood Pressure 138/68 Pulse Oximetry 94 Oxygen Delivery 04/20/25 08:00 04/20/25 08:00 04/20/25 08:03 Temperature 97.4 F L Pulse Rate 94 95 Respiratory Rate 22 H Blood Pressure 157/85 H Pulse Oximetry 95 Oxygen Delivery Room Air 04/20/25 08:21 04/20/25 10:00 04/20/25 10:06 Temperature Pulse Rate 90 90 Respiratory Rate Blood Pressure Pulse Oximetry 91 Oxygen Delivery Room Air Intake/Output Intake/Output: Intake & Output 04/17/25 04/18/25 04/19/25 04/20/25 23:59 23:59 23:59 23:59 Intake Total 1740 1790 1040 730 Output Total 1150 300 830 180 Balance 590 1490 210 550 Meds/Results Medications: Active Medications Generic Name Dose Route Start Last Admin Trade Name Freq PRN Reason Stop Dose Admin Acetaminophen 650 mg 04/17/25 11:27 04/17/25 16:15 Acetaminophen 325 Mg Tablet PO 650 mg Q4H PRN Administration Mild Pain (1-3) or Fever Hydrocodone Bitart/Acetaminophen 1 tab 04/17/25 11:27 04/20/25 10:46 Hydrocodone/Acetaminophen (*Crx) 5-325 Mg Tablet PO 1 tab Q4H PRN Administration Pain Rated 4-6 Aspirin 81 mg 04/18/25 10:45 04/20/25 10:06 Aspirin 81 Mg Enteric Tablet PO 81 mg QAM JUAN Administration Carvedilol 6.25 mg 04/17/25 21:00 04/20/25 10:06 Carvedilol 6.25 Mg Tablet PO 6.25 mg Q12HR JUAN Administration Cyanocobalamin 3,000 mcg 04/18/25 09:00 04/20/25 10:05 Cyanocobalamin 1,000 Mcg Tablet PO 3,000 mcg DAILY JUAN Administration Dextrose 12.5 gm 04/17/25 14:09 Dextrose 50% 25 Gm/50 Ml Syringe IV PUSH PRN PRN Hypoglycemia Protocol Docusate Sodium 100 mg 04/17/25 17:03 04/20/25 10:06 Docusate Sodium 100 Mg Capsule PO 100 mg Q12H PRN Administration Constipation Glucagon 1 mg 04/17/25 14:09 Glucagon For Inj 1 Mg Vial IM PRN PRN Hypoglycemia Protocol Glucose 15 gm 04/17/25 14:09 Glucose Oral Gel 15 Gm Of Glucse In 37.5 Gm Tube PO PRN PRN Hypoglycemia Protocol Dextrose 1,000 mls @ 100 mls/hr 04/17/25 14:09 Dextrose 5% 1,000 Ml IVPB PRN PRN Hypoglycemia Protocol Insulin Aspart 3 - 6 units 04/17/25 17:00 04/20/25 11:56 Insulin Aspart (*Bkc) 100 Units/Ml SUB-Q 3 units TIDWM JUAN Administration Protocol Morphine Sulfate 4 mg 04/17/25 11:27 04/19/25 06:00 Morphine Sulfate (*Crx) 4 Mg/Ml Inj IV PUSH 4 mg Q2H PRN Administration Pain Rated 7-10 Nitroglycerin 1 inch 04/17/25 18:00 04/20/25 11:57 Nitroglycerin Ointment 1 Inch Dose TRANSDERM 1 inch Q6HR JUAN Administration Ondansetron HCl 4 mg 04/17/25 11:27 04/19/25 06:00 Ondansetron Inj 4 Mg/2 Ml Vial IV PUSH 4 mg Q4H PRN Administration Nausea Polyethylene Glycol 17 gm 04/17/25 17:03 Polyethylene Glycol 3350 17 Gm Powd.Pack PO QAM PRN Constipation Rosuvastatin Calcium 20 mg 04/17/25 14:10 04/20/25 10:05 Rosuvastatin 20 Mg Tablet PO 20 mg DAILY JUAN Administration Sitagliptin Phosphate 100 mg 04/18/25 09:00 04/20/25 10:05 Sitagliptin Phosphate 100 Mg Tablet PO 100 mg DAILY JUAN Administration Tamsulosin HCl 0.4 mg 04/17/25 15:40 04/20/25 10:05 Tamsulosin Hcl 0.4 Mg Capsule PO 0.4 mg QAM JUAN Administration Radiology Results: ITS Impressions Abdomen/Pelvis CT 04/17/25 09:44 IMPRESSION: 1. Left UPJ stone measuring 5-6 mm with mild hydronephrosis. Ribs X-Ray 04/17/25 10:02 IMPRESSION: 1:No acute displaced rib fractures. Chest X-Ray 04/17/25 11:10 IMPRESSION: 1: NO ACUTE CARDIOPULMONARY DISEASE. Retrograde Pyelogram 04/19/25 13:56 IMPRESSION: 1. As above Labs Labs: Laboratory Results - last 24 hr 04/19/25 04/19/25 04/20/25 15:16 22:29 04:04 WBC 7.3 RBC 3.98 L Hgb 12.1 L Hct 36.7 L MCV 92.2 MCH 30.4 MCHC 33.0 RDW 12.4 Plt Count 188 MPV 10.4 Immature Gran % (Auto) 0.3 Neut % (Auto) 78.1 H Lymph % (Auto) 10.8 L [place] % (Auto) 10.0 H Eos % (Auto) 0.5 Baso % (Auto) 0.3 Lymph # (Auto) 0.79 L [place] # (Auto) 0.7 H Eos # (Auto) 0.0 Baso # (Auto) 0.0 Abs Immat Gran (auto) 0.02 Absolute Neuts (auto) 5.7 Absolute Nucleated RBC 0.000 Nucleated RBC % 0.0 Sodium 137 Potassium 4.0 Chloride 106 Carbon Dioxide 25 Anion Gap 6 BUN 25 H Creatinine 0.83 Estim Creat Clear Calc 72 Estimated GFR > 60 Glucose 175 H POC Capillary Glucose 197 H 203 H Calcium 8.9 Magnesium 2.0 Total Bilirubin 0.8 AST 45 ALT 16 Alkaline Phosphatase 75 Total Protein 6.2 L Albumin 3.5 04/20/25 04/20/25 08:04 11:23 WBC RBC Hgb Hct MCV MCH MCHC RDW Plt Count MPV Immature Gran % (Auto) Neut % (Auto) Lymph % (Auto) [place] % (Auto) Eos % (Auto) Baso % (Auto) Lymph # (Auto) [place] # (Auto) Eos # (Auto) Baso # (Auto) Abs Immat Gran (auto) Absolute Neuts (auto) Absolute Nucleated RBC Nucleated RBC % Sodium Potassium Chloride Carbon Dioxide Anion Gap BUN Creatinine Estim Creat Clear Calc Estimated GFR Glucose POC Capillary Glucose 172 H 201 H Calcium Magnesium Total Bilirubin AST ALT Alkaline Phosphatase Total Protein Albumin
--- NOTE | 2025-04-20 14:36 | PC.NURSE ---
This patient, Silvano Trevino, was transferred to [facility] on 04/20/25 at 1429. Personal belongings sent with patient. Report given to Cathi SERVIN. Appropriate documentation sent with patient. Patient spouse at bedside.
--- NOTE | 2025-04-20 21:13 | ECG_ITS ---
Test Date: 2025-04-20 21:30:54 Measurements Intervals [place] Rate: 85 P: 7 UT: 125 QRS: -34 QRSD: 109 T: -5 QT: 374 QTc: 446 Interpretive Statements SINUS RHYTHM LEFT AXIS DEVIATION INCOMPLETE LEFT BUNDLE BRANCH BLOCK MINIMAL Q WAVES- HIGH LATERAL LEADS BORDERLINE ST-T WAVE ABNORMALITY- DIFFUSE LEADS BASELINE ARTIFACT- I, II, III, AVR, AVL, AVF, V1-V6 ABNORMAL ECG Compared to ECG 04/19/2025 07:11:13 NO SIGNIFICANT CHANGE Electronically Signed On 04-21-2025 08:24:21 [facility] [employer] by Flo Maldonado D.O.
[2025-04-20] MEDS: MORPHINE SULFATE (*CRX) 4 MG/ML INJ IV PUSH (21:46)
[2025-04-21] VITALS: BP 127/71; PULSE 79; RESP 16; TEMP 36.6; O2SAT 94
[2025-04-21 00:02] VITALS: PULSE 74
[2025-04-21] MEDS: NITROGLYCERIN OINTMENT 1 INCH DOSE TRANSDERM ×2 (00:48→06:45)
[2025-04-21 04:04] VITALS: PULSE 79
--- NOTE | 2025-04-21 07:20 | PC.NURSE ---
Patient refused indefinately to have SCD's applied to bilateral legs. He stated, I just want yall to leave me the fuck alone and let me sleep, I don't want that shit on my legs. Tried to education patient about risk and benefits to have SCD's on. RN explained risks of DVT, PE. Patient refused education. Patient oriented x3, vital signs stable. Call light/personal belongs within reach with bed in lowest position.
[2025-04-21 07:55] VITALS: BP 139/82
[2025-04-21 07:56] VITALS: PULSE 72
[2025-04-21] MEDS: ASPIRIN 81 MG ENTERIC TABLET PO (07:56)
[2025-04-21] MEDS: CYANOCOBALAMIN 1,000 MCG TABLET 3000 MCG PO (07:56)
[2025-04-21] MEDS: ROSUVASTATIN 20 MG TABLET PO (07:56)
[2025-04-21] MEDS: TAMSULOSIN HCL 0.4 MG CAPSULE PO (07:56)
[2025-04-21 08:00] VITALS: PULSE 83; O2SAT 94
--- NOTE | 2025-04-21 12:00 | PM.DS ---
DS: Admitting Diagnosis Discharge Date 04/21/2025 Admitting Diagnosis Left flank pain DS: Discharge Diagnosis Discharge Diagnosis (1) Non-ST elevated myocardial infarction: Code(s): I21.4 - Non-ST elevation (NSTEMI) myocardial infarction Status: Acute (2) Obstruction of left ureteropelvic junction (UPJ) due to stone: Code(s): N20.1 - Calculus of ureter Status: Acute (3) PAF (paroxysmal atrial fibrillation): Code(s): I48.0 - Paroxysmal atrial fibrillation Status: Acute (4) Diabetes mellitus with neuropathy: Qualifiers: Diabetes mellitus type: type 2 Diabetes mellitus intermediate insulin use: without intermediate use Qualified Code(s): E11.40 - Type 2 diabetes mellitus with diabetic neuropathy, unspecified Code(s): E11.40 - Type 2 diabetes mellitus with diabetic neuropathy, unspecified Status: Acute (5) Mixed hyperlipidemia: Code(s): E78.2 - Mixed hyperlipidemia Status: Acute (6) Essential (primary) hypertension: Code(s): I10 - Essential (primary) hypertension Status: Acute DS: Summary Hospital Course Hospital Course: # Non-ST elevated myocardial infarction: Patient presented here with left lateral rib pain that is constant, sharp, stabbing that started 04/16/2025 around 10:30 p.m.. He has a past medical history significant for coronary artery disease, heart attack x2 and coronary stent x3. Currently follows with Dr. Maldonado for his cardiac care. His initial EKG showed ST depression. Initial troponin 0.092, repeat 0.335. Cardiology has been consulted, Dr. Horowitz, see note for full details. Further assessment, the patient has fixed coronary artery disease and should be managed medically. Recommended nitro paste, beta-jalen, statin. If BP remains elevated, may need additional medication for afterload reduction via ANTONINA/ARB/hydralazine. He has been cleared further perspective, however would be still be at an elevated risk due to his previously known cardiac history. Echo preoperatively showed 55% EF with inferior hypokinesis. Inferior hypokinesis is consistent with previous area of infarction. No further plans of preop cardiac catheterization as management will not change. Patient suspected to have elevated troponin related to his underlying fixed coronary artery disease which would be managed medically. He was not treated with heparin as he has history of bleeding in his eyes he was resumed on aspirin daily is symptomatology of left flank pain was considered however due to left UPJ stone obstruction. Elevated troponins subsequently likely demand ischemia related to this. # Obstruction of left ureteropelvic junction (UPJ) due to stone: Upon initial evaluation on 04/17, the patient CT of the abdomen/pelvis showed a left UPJ measuring 5-6 mm with mild hydronephrosis. He has been cleared via Cardiology and is at an elevated risk due to his previously known cardiac history, see their note. Has been discussed with the urologist, they are okay with starting aspirin. -start Flomax -IV fluids: 125 mL/hour x2 L Status post cystoscopy left retrograde pyelogram and left ureteral stent placement 04/19/2025 Follow-up with urology for definitive stone management # PAF (paroxysmal atrial fibrillation): On Coreg 6.25 mg daily at home, cardiology recommended increasing to b.i.d.. Not great candidate for OAC due to previous hemorrhage to his bilateral eyes. Will continue aspirin. -increasing Coreg from 6.25 mg daily to 6.25 mg b.i.d. -continue aspirin 81 daily -telemetry # Diabetes mellitus with neuropathy: - hypoglycemia protocol - POC blood glucose ACHS - home medication: Hold dapagliflozin and metformin. Continue Januvia. - correct regimen ordered - moderate dose TIDWM, based off BMI - A1C 7.9% June 2023, Repeat A1c 6.1 04/18/2025 # Mixed hyperlipidemia: -update lipid panel: LDL 37 HDL low at 27 -continue rosuvastatin # Essential (primary) hypertension: - Coreg increased from 6.25 mg daily to b.i.d., was previously prescribed 2.5 mg daily but was having issues at this does show was taking a half tablet daily. - monitor # ORACIO mild resolved # DVT Prophylaxis: SCDs # Code Status: Full Code. However had extensive conversation with the patient and his . If he required CPR, he would only like 1 dose of epinephrine and if he is not resuscitated after this does he would like all efforts ceased. Patient does not want to be intubated for a prolonged duration, his is aware of his wishes, but would be okay with intubation if it were temporizing. Time Spent with Patient Time attestation: Total time spent providing and/or coordinating discharge services: 40 minutes Exam Narrative: GENERAL: Chronically ill-appearing, well-nourished, and in no acute distress. HEAD: Normocephalic, atraumatic. ENT: Mucous membranes moist. CHEST: Clear to auscultation. No respiratory distress. HEART: Regular rate and rhythm. Normal peripheral pulses. ABDOMEN: Soft, nontender, nondistended. EXTREMITIES: Normal range of motion. No edema. SKIN: Warm, dry, no rash. NEURO: Alert and oriented x3. PSYCH: Normal mood and affect. DS: Data Data Completed and Pending Labs on day of discharge: Labs from last 24 hours 04/21/25 04/21/25 04/20/25 11:50 07:33 20:44 POC Capillary Glucose 235 H 190 H 156 H 04/20/25 04/20/25 17:16 11:23 POC Capillary Glucose 147 H 201 H Procedures/Treatments: Procedure Note - Detailed Date of Procedure 04/19/25 Pre-op Diagnosis left ureteral stone Post-op Diagnosis Same Procedure Performed cystoscopy, left retrograde pyelogram, left ureteral stent placement Surgeon Gopi Pearson MD Anesthesia General Indications left stone, ORACIO, pain, nausea Findings mild bulbous stricture, left proximal ureter stone Description of Procedure Description of procedure: Pt was brought back to the operating room, received a general anesthesia via GETA, was prepped and draped in the dorsal lithotomy position with Betadine scrub to the genitalia. SCD's were on and functional for DVT ppx. Care was taken t o not hyperflex or hyperextend and extremity , all bony prominences were padded. He received a preoperative dose of cefazolin for ppx. After appropriate timeout a 22 fr cystoscope was inserted into the ureterha, the bulbous urethra had some narrowing ~ 18 Fr, but was able to be traversed with wire and cystoscope, prostate had bilobar hyperplasia, bladder mucosa was normal, he has single orthotopic ureteral orifices effluxing clear yellow urine, Sensor wire was placed under fluoroscopy up the left uo, stone was easily visible in proximal ureter as radio-opaque density, I was able to navigated the sensor wire past this into the upper pole. 5 Fr open ended catheter placed over the wire and gentle RPG was performed to outline collecting system, 4.8 Fr variable length stent was then deployed, good curl was seen fluoroscopically in the kidney and both fluoroscopically and endoscopically in the bladder, bladder was drained, all instruments and wires removed, pt was awoken and transferred to recovery in stable condition. Implants left 4.8 fr variable length stent Urine Output 140 Pathology None sent Complications No immediate complications Condition Stable Disposition PACU Imaging Radiologist's impression: ITS Impressions Abdomen/Pelvis CT 04/17/25 09:44 IMPRESSION: 1. Left UPJ stone measuring 5-6 mm with mild hydronephrosis. Ribs X-Ray 04/17/25 10:02 IMPRESSION: 1:No acute displaced rib fractures. Chest X-Ray 04/17/25 11:10 IMPRESSION: 1: NO ACUTE CARDIOPULMONARY DISEASE. Retrograde Pyelogram 04/19/25 13:56 IMPRESSION: 1. As above Discharge Plan Discharge Attending physician on discharge: Niko Obrien Consulting providers: Norberto Horowitz; Benjie Garcia Discharging Clinician: Niko Obrien Anticipated Discharge Date/Time: 04/21/25 12:04 Patient Disposition: Home Activity: as tolerated Diet: as tolerated, heart healthy and diabetic Patient Instructions: Antibiotic Form Patient Language: Iraqi Stand Alone Forms: General Discharge Information Follow-up/Referrals: Flo Maldonado DO [Physician, Cardiology] - 2 Weeks Benjie Garcia MD [Physician, Urology] - 2 Weeks Karan Briceño MD [Primary Care Provider, Family Practice] - 1 Week Discharge Medications: New tamsulosin 0.4 mg Capsule 0.4 mg PO QAM Qty: 30 0RF nitroglycerin [Nitro-Dur] 0.4 mg/hr patch 24 hour 1 patch transdermal DAILY Qty: 30 0RF Rx Instructions: allow nitrate-free interval of approx. 10-12 hrs per 24-hour period carvedilol [Coreg] 6.25 mg Tablet 6.25 mg PO Q12HR Qty: 60 0RF docusate sodium 100 mg Capsule 100 mg PO Q12H PRN (Reason: Constipation) Qty: 60 0RF Continued mecobalamin (vitamin B12) 1,000 mcg tablet,chewable 3,000 mcg PO DAILY aspirin 81 mg tablet,delayed release (DR/EC) 81 mg PO DAILY metformin 1,000 mg tablet 1,000 mg PO BID Qty: 180 3RF dapagliflozin propanediol [Farxiga] 10 mg tablet 10 mg PO DAILY Qty: 90 3RF Januvia 100 mg tablet 100 mg PO DAILY Qty: 90 1RF (DME) blood sugar diagnostic Strip See Rx Instructions .ROUTE .MEDSUPPLY Qty: 100 3RF Rx Instructions: ONE TOUCH ULTRA BLUE TEST STRIPS 100 USE TO TEST ONCE DAILY rosuvastatin 20 mg tablet See Rx Instructions .ROUTE .COMPLEX Qty: 90 0RF Dose Instruction: TAKE 1 TABLET BY MOUTH DAILY Rx Instructions: TAKE 1 TABLET BY MOUTH DAILY Discontinued carvedilol 12.5 mg tablet 12.5 mg PO DAILY Date of admission: 04/18/25 07:20 Primary Care Provider: Karan Briceño Admitting Provider: Franklyn Sullivan Attending physician on admission: Franklyn Sullivan Condition: Stable
--- NOTE | 2025-04-21 13:01 | WPDUROPN2 ---
Progress Note: A&P Assessment and Plan (1) Left ureteral stone: Code(s): N20.1 - Calculus of ureter Status: Acute Plan 69yM with an 8 mm left UPJ calculus s/p 04/19/2025 left ureteral stent placement with concomitant elevated troponin/NSTEMI - Doing well - Urology will arrange for definitive stone management surgery in the upcoming weeks - Remainder of management per primary - Clear for discharge home from urology standpoint Subjective Subjective Date/Time Seen: 04/21/25 13:01 Interval history: NAEO. Exam Narrative: General: Awake, alert, comfortable, no acute distress HEENT: Normocephalic, atraumatic, sclerae anicteric Respiratory: Normal respiratory effort, no accessory muscle use Abdomen: Nondistended, soft, nontender Skin: Normal coloration, warm and dry Neurologic: No focal neuro deficits noted Psychiatric: Appropriate mood and affect, judgment and insight intact Objective Data Vital Signs Vital Signs: Vital Signs - 24 hr 04/20/25 16:00 04/20/25 22:14 04/20/25 22:14 Temperature 37.1 C Pulse Rate 87 82 Respiratory Rate 16 Blood Pressure 142/94 H Pulse Oximetry 95 95 Oxygen Delivery Room Air 04/21/25 00:00 04/21/25 00:02 04/21/25 04:04 Temperature 36.6 C Pulse Rate 79 74 79 Respiratory Rate 16 Blood Pressure 127/71 Pulse Oximetry 94 Oxygen Delivery 04/21/25 07:55 04/21/25 07:56 04/21/25 08:00 Temperature Pulse Rate 72 83 Respiratory Rate Blood Pressure 139/82 Pulse Oximetry Oxygen Delivery 04/21/25 08:00 Temperature Pulse Rate Respiratory Rate Blood Pressure Pulse Oximetry 94 Oxygen Delivery Room Air Intake/Output Intake/Output: Intake & Output 04/18/25 04/19/25 04/20/25 04/21/25 23:59 23:59 23:59 23:59 Intake Total 1790 1040 970 590 Output Total 300 830 280 700 Balance 1490 210 690 -110 Meds/Results Medications: Active Medications Generic Name Dose Route Start Last Admin Trade Name Freq PRN Reason Stop Dose Admin Acetaminophen 650 mg 04/17/25 11:27 04/17/25 16:15 Acetaminophen 325 Mg Tablet PO 650 mg Q4H PRN Administration Mild Pain (1-3) or Fever Hydrocodone Bitart/Acetaminophen 1 tab 04/17/25 11:27 04/20/25 10:46 Hydrocodone/Acetaminophen (*Crx) 5-325 Mg Tablet PO 1 tab Q4H PRN Administration Pain Rated 4-6 Aspirin 81 mg 04/18/25 10:45 04/21/25 07:56 Aspirin 81 Mg Enteric Tablet PO 81 mg QAM JUAN Administration Carvedilol 6.25 mg 04/17/25 21:00 04/21/25 07:56 Carvedilol 6.25 Mg Tablet PO 6.25 mg Q12HR JUAN Administration Cyanocobalamin 3,000 mcg 04/18/25 09:00 04/21/25 07:56 Cyanocobalamin 1,000 Mcg Tablet PO 3,000 mcg DAILY JUAN Administration Dextrose 12.5 gm 04/17/25 14:09 Dextrose 50% 25 Gm/50 Ml Syringe IV PUSH PRN PRN Hypoglycemia Protocol Docusate Sodium 100 mg 04/17/25 17:03 04/20/25 10:06 Docusate Sodium 100 Mg Capsule PO 100 mg Q12H PRN Administration Constipation Glucagon 1 mg 04/17/25 14:09 Glucagon For Inj 1 Mg Vial IM PRN PRN Hypoglycemia Protocol Glucose 15 gm 04/17/25 14:09 Glucose Oral Gel 15 Gm Of Glucse In 37.5 Gm Tube PO PRN PRN Hypoglycemia Protocol Dextrose 1,000 mls @ 100 mls/hr 04/17/25 14:09 Dextrose 5% 1,000 Ml IVPB PRN PRN Hypoglycemia Protocol Insulin Aspart 3 - 6 units 04/17/25 17:00 04/21/25 12:04 Insulin Aspart (*Bkc) 100 Units/Ml SUB-Q Not Given [facility] Protocol Morphine Sulfate 4 mg 04/17/25 11:27 04/20/25 21:46 Morphine Sulfate (*Crx) 4 Mg/Ml Inj IV PUSH 4 mg Q2H PRN Administration Pain Rated 7-10 Ondansetron HCl 4 mg 04/17/25 11:27 04/19/25 06:00 Ondansetron Inj 4 Mg/2 Ml Vial IV PUSH 4 mg Q4H PRN Administration Nausea Polyethylene Glycol 17 gm 04/17/25 17:03 Polyethylene Glycol 3350 17 Gm Powd.Pack PO QAM PRN Constipation Rosuvastatin Calcium 20 mg 04/17/25 14:10 04/21/25 07:56 Rosuvastatin 20 Mg Tablet PO 20 mg DAILY JUAN Administration Sitagliptin Phosphate 100 mg 04/18/25 09:00 04/21/25 07:56 Sitagliptin Phosphate 100 Mg Tablet PO 100 mg DAILY JUAN Administration Tamsulosin HCl 0.4 mg 04/17/25 15:40 04/21/25 07:56 Tamsulosin Hcl 0.4 Mg Capsule PO 0.4 mg QAM JUAN Administration Radiology Results: ITS Impressions Abdomen/Pelvis CT 04/17/25 09:44 IMPRESSION: 1. Left UPJ stone measuring 5-6 mm with mild hydronephrosis. Ribs X-Ray 04/17/25 10:02 IMPRESSION: 1:No acute displaced rib fractures. Chest X-Ray 04/17/25 11:10 IMPRESSION: 1: NO ACUTE CARDIOPULMONARY DISEASE. Retrograde Pyelogram 04/19/25 13:56 IMPRESSION: 1. As above Labs Labs: Laboratory Results - last 24 hr 04/20/25 04/20/25 04/21/25 17:16 20:44 07:33 POC Capillary Glucose 147 H 156 H 190 H 04/21/25 11:50 POC Capillary Glucose 235 H
== END 2025-04-21 13:54 | disposition home or self-care (01) | DRG 264 ==
LOC: ANHED 10:45 → ANHIMU 12:32 → ANH3MEDSUR 04-21 12:05 → ANHIMU 04-22 15:18
PROVIDERS: Internal Medicine Cardiovascular Disease; Student in an Organized Health Care Education/Training Program; Urology; Admitting Provider Internal Medicine; Emergency Provider Emergency Medicine; PCP Family Medicine; Visit Provider Internal Medicine
PROC: (CPT 52352; principal; 2025-04-18 15:00)
PROC: 0T778DZ Dilation of Left Ureter with Intraluminal Device, Via Natural or Artificial Opening Endoscopic (ICD-10-PCS; CPT 52352; principal; 2025-04-19 08:15)
DX: I25.10 Atherosclerotic heart disease of native coronary artery without angina pectoris (principal); I24.89 Other forms of acute ischemic heart disease; N20.1 Calculus of ureter; E11.42 Type 2 diabetes mellitus with diabetic polyneuropathy; I48.0 Paroxysmal atrial fibrillation; L40.9 Psoriasis, unspecified; E78.2 Mixed hyperlipidemia; I10 Essential (primary) hypertension; Z95.5 Presence of coronary angioplasty implant and graft; I25.2 Old myocardial infarction; Z90.49 Acquired absence of other specified parts of digestive tract
CPT/HCPCS: 36415; 71046; 71100; 74177; 74420; 80048; 80053; 80061; 81001; 82948; 83036; 83735; 84484; 85025; 85610; 85730; 93005; 96361; 96365; 96375; 99285; J0690; A9270; C1758; C1769; C2617; C8929; G0378; J0330; J1815; J2003; J2250; J2270; J2405; J2704; J3010; J7030; J7120; Q9957; Q9966; Q9967